=== PATIENT | female | born 1960 | race Caucasian/White ===

== ENCOUNTER 2016-04-29 16:56 | Inpatient (IN) | payer OTHER ==
[~2016-04-29] VITALS: Ht 160 cm; Wt 102.1 kg
--- NOTE | ~2016-04-29 | EKG ---
[address] [place] [address] ELECTROCARDIOGRAM REPORT Name: HARVINDERSERAFIN Room #: 454-P [facility] IN ..#: [id number] Admission: 04/29/16 Attend Phys: Vik De La Cruz MD Discharge: Date of : 56 Report #: [id number] THIS REPORT FOR: //name// [facility] ED Test Date: 2016-04-29 Test Time: 17:11:15 Pat Name: SERAFIN BLANTON Department: Room: [facility] Gender: F Hay Sorter: ULICES : 1960 Requested By: Javier Munguia Order Number: [id number] MD: Delfino Pollack Measurements Intervals [place] Rate: 96 P: 70 MA: 167 QRS: 48 QRSD: 102 T: 33 QT: 375 QTc: 474 Interpretive Statements Sinus rhythm No significant abnormality Compared to ECG 03/24/2016 08:55:02 No significant changes Electronically Signed On 04-30-2016 8:28:51 MECHANICAL SERVICE REPRESENTATIVE by Delfino Pollack [email or web address] <ELECTRONICALLY SIGNED> By: Delfino Pollack MD, [facility] 04/30/16 08 10 10 Delfino Pollack MD, [facility] /EPI
--- NOTE | ~2016-04-29 | HC ---
[facility] [address] [address] CONSULTATION Name: SERAFIN BLANTON Room #: 454-P [facility] IN M.R.#: [id number] Admission: 04/29/16 Attend Phys: Giuliano Sterling MD Discharge: Date of : 56 Report #: [id number] THIS REPORT FOR: //name// CC: [facility]mesh Mancini [facility] DATE OF SERVICE: 04/29/2016 REASON FOR CONSULTATION: Exacerbation of COPD. IMPRESSION: 1. Likely exacerbation of chronic obstructive pulmonary disease. 2. Ground glass capacity and interstitial thickening, question etiology. 3. Mediastinal hilar gastrohepatic lymphadenopathy. 4. Obstructive sleep apnea. 5. History of anticardiolipin syndrome. 6. Cirrhosis. 7. Morbid obesity. 8. Coronary artery disease with percutaneous transluminal coronary angioplasty. 9. History of cerebrovascular accident with history of patent foramen ovale closure. 10. Anticardiolipin antibody. 11. Hypertension. 12. Diabetes. 13. Psoriasis. 14. Pulmonary hypertension, PA systolic of 37. PLAN: Agree with current therapy including corticosteroids and Pulmicort. Wean corticosteroids quickly. We will do a viral panel. Anemia workup per primary as well as thrombocytopenia. Does have lactic acidosis from work of breathing likely. HISTORY OF PRESENT ILLNESS: A 55-year-old female recently discharged on 03/28/2016, was doing well. I saw her actually on 04/09/2016. She was working on loosing weight. She was using her BiPAP. We did discuss reflux precautions. She relates children have been sick at home and she has come down with similar viral illness with cough, shortness of breath and some brown sputum production. MEDICATIONS: Include , vitamin D, magnesium, levothyroxine, Tradjenta, metformin, Invokana, potassium, atenolol, Plavix, Lantus, ProAir, Daliresp, Mucinex, omeprazole, Incruse, aspirin, simvastatin, Lasix, losartan, Symbicort and albuterol. PAST SURGICAL HISTORY: Include bunion surgery, , cholecystectomy, eye surgery and tonsillectomy. We had talked about doing a lung biopsy but has not [facility] [address] [place] [address] CONSULTATION Name: SERAFIN BLANTON Room #: 454-P [facility] IN [facility]#: [id number] Admission: 04/29/16 Attend Phys: Giuliano Sterling MD Discharge: Date of : 56 Report #: [id number] been well enough to do this. FAMILY HISTORY: Positive for liver cancer and [place]. SOCIAL HISTORY: Positive tobacco, quit in 2000. Negative drugs of abuse. ALLERGIES: To SULFA, TETRACYCLINE and DEXILANT. REVIEW OF SYSTEMS: Coronary artery disease in 2008, last PA systolic was 37, history of CVA, COPD, endocarditis, sleep apnea and AHI of 34. History of ischemic cardiomyopathy. reflux. No hemoptysis. PHYSICAL EXAMINATION: VITAL SIGNS: Temperature 99.6, pulse 101, respirations 18 and BP 123/65. EYES: Negative icterus. NECK: Trachea midline. Posterior pharynx, no thrush. LUNGS: Showed mild wheeze bilaterally. HEART: Regular. ABDOMEN: Bowel sounds present. EXTREMITIES: Showed trace edema and psoriatic lesions. LABORATORY DATA: Lactate 33. BUN 13, creatinine 1.4 and glucose 269. Magnesium 1.6. White count 6.7, hemoglobin 10.4, MCV 83.6 and platelets 128 and no bands. RADIOLOGICAL DATA: CT PE protocol showed stable enlargement of pulmonary arteries; stable mediastinal, hilar and gastrohepatic lymphadenopathy with scattered ground glass opacities within the lungs and interstitial thickening and enlarged liver. EKG showed probable left atrial enlargement and no significant change. We will follow closely with you. <ELECTRONICALLY SIGNED> By: Umesh Fall MD 04/30/16 1832 2205 0850 Umesh Fall MD /nt
--- NOTE | ~2016-04-29 | D ---
[facility] [place] [address] [place] [address] DISCHARGE SUMMARY Name: SERAFIN BLANTON Room #: 454-P [facility] IN M.R.#: [id number] Admission: 04/29/16 Attend Phys: Giuliano Sterling MD Discharge: 05/07/16 Date of : 56 Report #: [id number] THIS REPORT FOR: //name// CC: Umesh Sterling DATE OF SERVICE: 05/06/2016 TYPE OF DICTATION: Discharge summary. After [id number] encounter, I did see the patient and examined her on the day of discharge, 05/06/2016. DISCHARGE DIAGNOSES: 1. Exacerbation of chronic obstructive pulmonary disease. 2. Ground-glass opacities and interstitial thickening. 3. Mediastinal hilar gastrohepatic lymphadenopathy. 4. Obstructive sleep apnea. 5. Edema. 6. History of anticardiolipin syndrome. 7. Diabetes mellitus. 8. Morbid obesity. 9. Coronary artery disease, status post angioplasty. 10. History of cerebrovascular accident with history of patent foramen ovale. 11. Hypertension. 12. Psoriasis. 13. Pulmonary hypertension with pulmonary artery systolic pressure of 37. 14. Parainfluenza, treated. 15. Colonization methicillin-resistant Staphylococcus aureus. 16. Diastolic congestive heart failure. 17. Obstructive sleep apnea. 18. Hypomagnesemia, resolved. 19. Hypothyroidism. 20. Hypokalemia, resolved. HOSPITAL COURSE: The patient was admitted to the hospital secondary to short of breath and she was found to have [id number] hypoxic respiratory failure and COPD exacerbation. The patient was admitted to the hospital and started on steroids and bronchodilators. Dr. Fall with pulmonary service was consulted and his impression is there are ground-glass opacities in the lung with question etiology. He did the viral panel and anemia workup as well as thrombocytopenia and he was following the patient during her stay in the hospital. Also, the patient was followed with infectious disease, who think she was doing well and to continue current . The patient has mediastinal lymphadenopathy which is going to be followed by pulmonary. So, on the day of discharge, Dr. Fall [facility] [address] [place] [address] DISCHARGE SUMMARY Name: HARVINDERSERAFIN Room #: 454-P [facility] IN [facility].#: [id number] Admission: 04/29/16 Attend Phys: Giuliano Sterling MD Discharge: 05/07/16 Date of : 56 Report #: [id number] stated that the patient is stable to go home. He likes her to follow up with him in 2 weeks and also to have a taper of prednisone every 2 days and then stop. The patient is stable and she is going home. MEDICATIONS: See the discharge summary for her medicines. <ELECTRONICALLY SIGNED> By: Bernard Adams MD 05/07/16 1708 0948 1024 Bernard Adams MD /calin
--- NOTE | ~2016-04-29 | HC ---
[facility] [place] [address] [place] [address] CONSULTATION Name: SERAFIN BLANTON Room #: 454-P [facility] IN .R.#: [id number] Admission: 04/29/16 Attend Phys: Giuliano Sterling MD Discharge: Date of : 56 Report #: [id number] THIS REPORT FOR: //name// CC: Umesh Sterling REASON FOR CONSULTATION: I was asked to evaluate concerning exacerbation of COPD and parainfluenza infection. HISTORY OF PRESENT ILLNESS: The patient is a 55-year-old with a history of COPD, oxygen dependent. She was admitted on 04/29/2016 with 2 weeks of progressive cough and shortness of breath. Sputum cultures revealed normal donavon. CT scan of the chest showed hilar adenopathy, which was stable and interstitial changes to the lung. Her viral respiratory panel has shown parainfluenza. She has been exposed to several other family members, who have had upper respiratory tract infection symptoms. No travel. No other exposures noted. ALLERGIES: SULFA AND TETRACYCLINE. PAST MEDICAL HISTORY: COPD, coronary artery disease, stroke, obstructive sleep apnea, diabetes, hypothyroidism, cholecystectomy, eye surgery. The patient reconstruction bunionectomy, antiphospholipid syndrome. Had a suspected endocarditis in 2004 and PFO identified. FAMILY HISTORY: Coronary artery disease, cancer. SOCIAL HISTORY: Past smoker. No significant alcohol intake. No HIV risk factors. REVIEW OF SYSTEMS: No chest pain. She has had peripheral edema. No nausea, vomiting or diarrhea, dysuria or frequency. PHYSICAL EXAMINATION: VITAL SIGNS: Afebrile, hemodynamically stable. GENERAL: She was alert, cooperative and pleasant on 4 L of oxygen per nasal cannula. She was obese with 2+ peripheral edema in the lower extremities. HEENT: Unremarkable. NECK: Supple. LUNGS: Decreased breath sounds bilaterally with no consolidation or adventitial sounds. HEART: Regular. ABDOMEN: Soft and nontender. LABORATORY STUDIES: 1. Blood cultures are negative. Viral respiratory panel positive for [facility] [address] [place] [address] CONSULTATION Name: SERAFIN BLANTON Room #: 454-P [facility] IN [facility]#: [id number] Admission: 04/29/16 Attend Phys: Giuliano Sterling MD Discharge: Date of : 56 Report #: [id number] parainfluenza. 2. ABG on 4 L showed a pO2 of 70, pCO2 of 56, pH of 7.4. 3. Hemoglobin 11; white count 14; platelet count 164,000. Creatinine 1.2. 4. Echocardiogram was unremarkable. 5. HEATHER level, negative. 6. BNP 8000. 7. Sputum normal donavon. 8. Chest x-ray yesterday showed slight right middle lobe atelectasis. IMPRESSION: A 55-year-old with exacerbation of chronic obstructive pulmonary disease due to her influenza. She has some adenopathy and interstitial changes on the CT scan, which appears stable. She has underlying pulmonary hypertension, previous patent foramen ovale and status post closure, cirrhosis. Concern is the mediastinal adenopathy that been identified since ____/2011. It does seem like this is relatively stable, but they are in large nodes. In between acute exacerbation of her chronic obstructive pulmonary disease, it seems like the patient does reasonably well for her advanced chronic obstructive pulmonary disease. RECOMMENDATION: Should be able to discontinue her antibiotics for parainfluenza likely the cause of her exacerbation of COPD. Continue with diuresis to control her lower extremity edema. Taper prednisone for I suspect this has what caused her leukocytosis. 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 No intervention regarding this. We will await ANCA and further serology testing. Does not fit well for mycobacterial or fungal infection, considering the chronicity. Histoplasma would be most likely, although fungal organisms would cause a chronic mediastinal adenopathy. We will screen for histoplasma. We will discuss further with pulmonary medicine regarding further interventions versus continued observation. <ELECTRONICALLY SIGNED> By: Rafael Malone MD 05/06/16 1027 1715 1844 Rafael Malone MD /nt
--- NOTE | ~2016-04-29 | 2DMMODE ---
[facility] [place] [address] 2 D/M-MODE ECHOCARDIOGRAM Name: SERAFIN BLANTON Room #: 454-P [facility] IN ..#: [id number] Admission: 04/29/16 Attend Phys: Jeanette Soto Discharge: Date of : 56 Date of Service: 05/04/16 1012 Report #: [id number] THIS REPORT FOR: //name// Transthoracic Echocardiography Ordering physician: Giuliano Sterling Referring physician: Addis Ndiaye MD Sharma, Manoj K. Arch Cushion Skiving Machine Operator: Bing Villegas Indications/History: Abbreviated echo for CHF, PHTN, SOB. Hx: CAD, stents, COPD, DM, obesity. Complete echo done 03/24/16. BP: 167 / HR: 90bpm Height: 63in Weight: 225.5lb 83 Study data: Limited 2D, limited spectral Doppler, and color Doppler. Location: Bedside. Routine. Image quality was adequate. 2D measurements Normal Normal LVID ED 36-57 IVS ED 6-11 LVID ES 23-40 LVPW ED 6-11 LA volume index 16-28 AoRoot diam ED 21-37 LVOT diameter 18-23 Findings: Left ventricle: The cavity size was normal. Wall thickness was normal. Systolic function was normal. The estimated ejection fraction was in the range of 50% to 55%. Right ventricle: The cavity size was normal. Systolic function was normal. Right atrium: The atrium was normal in size. Left atrium: The atrium was mildly dilated. Aortic valve: Mildly thickened, mildly calcified leaflets. Doppler: There was no stenosis. Trivial regurgitation. Peak velocity: 224cm/s (S). Peak gradient: 20.1mm Hg (S). [facility] [place] [address] 2 D/M-MODE ECHOCARDIOGRAM Name: SERAFIN BLANTON Room #: [facility] IN M.R.#: [id number] Admission: 04/29/16 Attend Phys: Jeanette Soto Discharge: Date of : 56 Date of Service: 05/04/16 1012 Report #: [id number] Mitral valve: Mildly thickened, mildly calcified leaflets . Doppler: There was no evidence for stenosis. Trivial regurgitation. Tricuspid valve: Structurally normal valve. Doppler: There was no evidence for stenosis. Trivial regurgitation. Regurgitant peak velocity: 271.9cm/s. Peak RV-RA gradient: 30mm Hg (S). Pericardium: There was no pericardial effusion. Pulmonary artery: Systolic pressure was estimated to be 40mm Hg. Systemic veins: Inferior vena cava: The vessel was dilated; the respirophasic diameter changes were in the normal range (= 50%). Conclusions 1. Left ventricle: The cavity size was normal. Wall thickness was normal. Systolic function was normal. The estimated ejection fraction was in the range of 50% to 55%. 2. Left atrium: The atrium was mildly dilated. 3. Aortic valve: Mildly thickened, mildly calcified leaflets. Trivial regurgitation. 4. Mitral valve: Mildly thickened, mildly calcified leaflets . Trivial regurgitation. 5. Tricuspid valve: Structurally normal valve. Trivial regurgitation. 6. Pulmonary arteries: Systolic pressure was estimated to be 40mm Hg. 7. Inferior vena cava: The vessel was dilated; the respirophasic diameter changes were in the normal range (= 50%). <ELECTRONICALLY SIGNED> By: Mingo Ruiz MD 05/04/16 1134 1012 1134 Mingo Ruiz MD /falguni
[~2016-04-29 16:56] MED LIST: ACETAMINOPHEN325 M1 PO; ACIDOPHILUS1 EAC2 PO; ACIDOPHILUS1 EAC3 PO; ACTOS15 MG PO; ALBUTEROL; ALBUTEROL NEB; ALBUTEROL2.5 MG/0.5 INH; ALBUTEROL2.5 MG/31 INH; AMLODIPINE BESYL5 MG PO; AMOXICILLIN 50500 M1 PO; AMOXICILLIN/POTASSIU; ANALGESIC325 MG PO; ASPIRIN325 PO; ATENOLOL 25 MG25 M1 PO; AUGMENTIN 875875 MG PO; AVELOX 400 MG400 M1; BIAXIN 500 MG500 M1 PO; BYETTA PEN 11 PENIN1 SUBQ; BYETTA PEN 11 PENINJ SUBQ; BYETTA PEN 51 PENIN1 SUBQ; CARVEDILOL6.25 MG PO; CEFDINIR300 MG PO; CEFTIN 250 MG250 MG PO; CEPACOL SORE T1 EAC7 PO; CIPROFLOXACIN500 M1 PO; CLARITIN10 MG PO; DALIRESP500 MCG PO; FLUOCINONI0.05 %/30 TOP; GABAPENTIN 100100 MG PO; GABAPENTIN100 MG PO; GLUCOPHAGE500 MG PO; GUAIFENESIN; INCRUSE ELLI62.5 MCG IH; INVOKANA300 MG PO; LANTUS100 UNIT/M SUBQ; LASIX 40 MG TAB40 M2 PO; LEVOFLOXACIN750 MG PO; LEVOTHROID125 MCG PO; LEVOTHYROXIN0.125 M1 PO; LEVOTHYROXINE 0.15MG PO; LISINOPRIL2.5 MG PO; LOSARTAN POTAS100 MG PO; MAGNESIUM250 M1 PO; MAGNESIUM400 MG PO; MUCINEX TA600 MG/TA2 PO; MUCINEX600 MG PO; NASAL SPRAY30 ML NASAL; NEURONTIN 300300 M1 PO; OMNICEF250 MG/5 M; OSELB75 PO; OXYGEN; PLAVIX 75 MG TA75 MG PO; POTASSIUM20 PO; PREDNISONE 10 M10 M1 PO; PREDNISONE 10 M10 MG; PREDNISONE 10 M10 MG PO; PRENATA CHEWAB1 EACH PO; PRENATAL TABLE1 EAC4 PO; PRILOSEC20 MG PO; PROAIR HFA8.5 GM IH; PROAIR HFA8.5 GM INH; RANITIDINE 150150 MG PO; REPLACE1 EACH PO; SIMVASTATIN10 MG PO; SIMVASTATIN40 MG PO; SPIRIVA INH; SYMBICORT160 MCG/4. INH; SYMBICORT160 MCG/41 INH; SYNTHROID150 MCG PO; TRADJENTA5 MG PO; VENTOLIN17 GM INH; VISINE ALLERGY30 ML OPHTHALMIC; VITAMIN D 5050000 I1 PO; VITAMIN D250000 UNIT PO; ZANTAC 150MG T150 M1 PO; ZANTAC 150MG T150 MG PO; ZOCOR 10 MG TAB10 MG PO
[2016-04-29 17:03] VITALS: BP 135/59
[2016-04-29] MEDS ORDERED: PRILOSEC 20 MG20 MG PO (17:28)
[2016-04-29] MEDS ORDERED: INVOKANA300 MG PO (17:31)
[2016-04-29 17:43] LABS: ABSOLUTE NEUTROPHILS 4.4 thou/uL (1.4-8.2); BASOPHILS 0.4 % (0.0-2.0); EOSINOPHILS 0.7 % (0.0-3.0); HEMATOCRIT 31.3 % (37.0-47.0); HEMOGLOBIN 10.4 gm/dL (12.0-15.0); LYMPHOCYTES 26.4 % (24.0-44.0); MANUAL DIFF NO; MCH 27.7 pg (26.0-34.0); MCHC 33.2 % (28.0-37.0); MCV 83.6 fL (80.0-100.0); MONOCYTES 7.3 % (1.0-8.0); PLATELET COUNT 128 thou/uL (150-400); POLYS 65.2 % (36.0-66.0); RBC 3.74 mil/uL (4.20-5.00); RDW 19.7 % (10.5-14.5); WBC 6.7 thou/uL (4.0-11.0)
[2016-04-29 17:51] LABS: ANION GAP 8 mmol/L (7-16); BUN 13 mg/dL (7-18); CALCIUM 8.4 mg/dL (8.5-10.1); CHLORIDE 99 mmol/L (98-107); CO2 34 mmol/L (21-32); CREATININE 1.4 mg/dL (0.6-1.3); GLUCOSE 269 mg/dL (70-99); POTASSIUM 3.7 mmol/L (3.5-5.1); SODIUM 141 mmol/L (136-145)
[2016-04-29 18:00] LABS: ALBUMIN 3.3 g/dL (3.4-5.0); ALKALINE PHOSPHATASE 51 U/L (46-116); MAGNESIUM 1.6 mg/dL (1.8-2.4); SGOT 13 U/L (15-37); SGPT 17 U/L (30-65); TOTAL BILIRUBIN 0.2 mg/dL (<0.1-1.0); TOTAL PROTEIN 7.7 g/dL (6.4-8.2); TROPONIN-I < 0.04 ng/mL (<0.04-0.07)
[2016-04-29 20:25] VITALS: BP 133/69
[2016-04-29 23:55] VITALS: BP 133/65
[2016-04-30 04:35] VITALS: BP 140/64
[2016-04-30 08:00] VITALS: BP 121/64
[2016-04-30 10:06] LABS: CREATININE 1.3 mg/dL (0.6-1.3); MAGNESIUM 1.8 mg/dL (1.8-2.4)
[2016-04-30 10:09] LABS: POTASSIUM 4.9 mmol/L (3.5-5.1)
[2016-04-30 11:23] VITALS: BP 130/68
[2016-04-30 12:12] LABS: IgA < 50 mg/dL (87-352); IgG 1373 mg/dL (700-1600); IgM 169 mg/dL (26-217)
[2016-04-30 15:07] VITALS: BP 138/86
[2016-04-30 20:13] VITALS: BP 146/75
[2016-05-01 05:17] VITALS: BP 140/69
[2016-05-01 06:41] LABS: CALCIUM 8.9 mg/dL (8.5-10.1); CREATININE 1.3 mg/dL (0.6-1.3); POTASSIUM 4.7 mmol/L (3.5-5.1)
[2016-05-01 07:59] VITALS: BP 156/80
[2016-05-01 13:14] LABS: ANTI-DNA SCREEN 2 IU/mL (0-9); ANTI-RNP 0.3 AI (0.0-0.9)
[2016-05-01 16:33] VITALS: BP 144/78
[2016-05-01 20:22] VITALS: BP 146/72
[2016-05-02 03:25] VITALS: BP 149/82
[2016-05-02 04:36] LABS: HEMATOCRIT 28.9 % (37.0-47.0); HEMOGLOBIN 9.6 gm/dL (12.0-15.0); MCH 27.9 pg (26.0-34.0); MCHC 33.1 % (28.0-37.0); MCV 84.4 fL (80.0-100.0); RBC 3.42 mil/uL (4.20-5.00); RDW 19.7 % (10.5-14.5)
[2016-05-02 04:41] LABS: CALCIUM 8.9 mg/dL (8.5-10.1); CREATININE 1.2 mg/dL (0.6-1.3); POTASSIUM 4.4 mmol/L (3.5-5.1)
[2016-05-02 08:10] VITALS: BP 155/90
[2016-05-02 12:29] VITALS: BP 157/83
[2016-05-02 15:14] VITALS: BP 155/93
[2016-05-02 16:08] LABS: ANGIOTENSIN CONVERTNG ENZ 25 U/L (14-82)
[2016-05-02 19:32] VITALS: BP 155/83
[2016-05-03 03:39] VITALS: BP 153/93
[2016-05-03 09:00] VITALS: BP 135/82
[2016-05-03 13:00] VITALS: BP 132/78
[2016-05-03 16:00] VITALS: BP 136/68
[2016-05-03 20:00] VITALS: BP 129/66
[2016-05-04 04:00] VITALS: BP 175/76
[2016-05-04 05:50] LABS: HEMATOCRIT 30.3 % (37.0-47.0); HEMOGLOBIN 9.9 gm/dL (12.0-15.0); MCHC 32.7 % (28.0-37.0); MCV 85.4 fL (80.0-100.0); RBC 3.55 mil/uL (4.20-5.00); RDW 19.6 % (10.5-14.5); WBC 10.7 thou/uL (4.0-11.0)
[2016-05-04 07:23] LABS: CALCIUM 9.1 mg/dL (8.5-10.1); CREATININE 1.3 mg/dL (0.6-1.3); POTASSIUM 4.1 mmol/L (3.5-5.1)
[2016-05-04 10:11] LABS: GLOMERULR BASEM MEMBRN AB 12 units (0-20)
[2016-05-04 12:45] VITALS: BP 166/76
[2016-05-04 14:13] LABS: PROTEASE 3 ANTIBODY < 3.5 U/mL (0.0-3.5)
[2016-05-04 15:18] VITALS: BP 166/76
[2016-05-04 17:09] LABS: INFLUENZA B Negative (Negative); METAPNEUMOVIRUS Negative (Negative)
[2016-05-04 19:37] VITALS: BP 155/74
[2016-05-05 06:17] LABS: HEMATOCRIT 34.5 % (37.0-47.0); HEMOGLOBIN 11.1 gm/dL (12.0-15.0); MCH 27.5 pg (26.0-34.0); MCHC 32.2 % (28.0-37.0); MCV 85.5 fL (80.0-100.0); PLATELET COUNT 164 thou/uL (150-400); RBC 4.04 mil/uL (4.20-5.00); RDW 19.9 % (10.5-14.5); WBC 14.3 thou/uL (4.0-11.0)
[2016-05-05 06:21] LABS: MANUAL DIFF YES
[2016-05-05 06:34] LABS: CALCIUM 9.3 mg/dL (8.5-10.1); CREATININE 1.2 mg/dL (0.6-1.3); POTASSIUM 4.1 mmol/L (3.5-5.1)
[2016-05-05 07:30] VITALS: BP 166/74
[2016-05-05 08:43] LABS: METAMYELOCYTES 2 %; TOTAL CELL COUNT 100
[2016-05-05 08:44] LABS: ABSOLUTE NEUTROPHILS 11.4 thou/uL (1.4-8.2); ANISOCYTOSIS 1+; MYELOCYTES 1 %
[2016-05-05 10:33] LABS: ABG SAMPLE TYPE ARTERIAL; BE(vivo) 10.5 mmol/L (-2 to +3); HCO3 36.6 mmol/L (22.0-26.0); LACTATE 1.98 mmol/L (0.5-2.0); O2(CT) 15.6 mL/dL (15.0-23.0); PCO2 56.2 mmHg (35.0-45.0); PO2 70.7 mmHg (80.0-100.0); pH 7.432 (7.360-7.450); sO2 94.3 % (92.0-98.0); tCO2 38.4 mmol/L (24.0-30.0)
[2016-05-05 10:35] LABS: STICK SITE L.RADIAL
[2016-05-05 10:36] LABS: ABG COMMENT NO PROBLEMS
[2016-05-05 12:00] VITALS: BP 150/70
[2016-05-05 16:00] VITALS: BP 153/69
[2016-05-05 19:40] VITALS: BP 146/78
[2016-05-06 04:52] VITALS: BP 147/63
[2016-05-06 06:16] LABS: HEMATOCRIT 33.1 % (37.0-47.0); HEMOGLOBIN 10.9 gm/dL (12.0-15.0); MCH 27.8 pg (26.0-34.0); MCV 84.2 fL (80.0-100.0); PLATELET COUNT 180 thou/uL (150-400); RBC 3.93 mil/uL (4.20-5.00); RDW 19.6 % (10.5-14.5); WBC 17.4 thou/uL (4.0-11.0)
[2016-05-06 06:23] LABS: MANUAL DIFF YES
[2016-05-06 06:26] LABS: CALCIUM 8.9 mg/dL (8.5-10.1); CREATININE 1.3 mg/dL (0.6-1.3); POTASSIUM 3.4 mmol/L (3.5-5.1)
[2016-05-06 07:40] VITALS: BP 148/66
[2016-05-06 08:36] LABS: ABSOLUTE NEUTROPHILS 11.3 thou/uL (1.4-8.2); METAMYELOCYTES 1 %; TOTAL CELL COUNT 100
[2016-05-06 08:37] LABS: ANISOCYTOSIS 1+; PLATELET ESTIMATE NORMAL
[2016-05-06 11:35] VITALS: BP 128/67
[2016-05-06 16:09] LABS: c-ANCA <1:20 titer (Neg:<1:20); p-ANCA <1:20 titer (Neg:<1:20)
[2016-05-06 16:17] VITALS: BP 134/70
[2016-05-06 19:45] VITALS: BP 132/73
[2016-05-07 03:47] VITALS: BP 111/54
[2016-05-07 08:14] LABS: HEMATOCRIT 30.9 % (37.0-47.0); HEMOGLOBIN 10.2 gm/dL (12.0-15.0); MCH 28.2 pg (26.0-34.0); MCHC 33.2 % (28.0-37.0); MCV 85.2 fL (80.0-100.0); PLATELET COUNT 140 thou/uL (150-400); RBC 3.63 mil/uL (4.20-5.00); RDW 19.6 % (10.5-14.5); WBC 12.2 thou/uL (4.0-11.0)
[2016-05-07 08:16] LABS: MANUAL DIFF YES
[2016-05-07 08:20] VITALS: BP 134/61
[2016-05-07 08:20] LABS: CREATININE 1.3 mg/dL (0.6-1.3); MAGNESIUM 2.1 mg/dL (1.8-2.4); POTASSIUM 3.8 mmol/L (3.5-5.1)
[2016-05-07 08:51] LABS: ABSOLUTE NEUTROPHILS 8.2 thou/uL (1.4-8.2); METAMYELOCYTES 3 %; MYELOCYTES 3 %; TOTAL CELL COUNT 100
[2016-05-07 08:52] LABS: ANISOCYTOSIS SLIGHT; MACROCYTES SLIGHT; POLYCHROMASIA SLIGHT
[2016-05-07] MEDS ORDERED: PREDNISONE 5 MG5 M1 PO (09:54)
[2016-05-07] MEDS ORDERED: CEFUROXIME250 MG PO (09:54)
[2016-05-07 11:54] VITALS: BP 166/76
[2016-05-07 12:09] LABS: ASPERGILLUS FLAVUS Negative (Negative); ASPERGILLUS FUMIGATIS #1 Negative (Negative); ASPERGILLUS FUMIGATIS #2 Negative (NEGATIVE); ASPERGILLUS FUMIGATIS #3 Negative (NEGATIVE); ASPERGILLUS FUMIGATIS #6 Negative (NEGATIVE); AUREO PULLULANS Negative (Negative); MICROPOLYSPOR FAENI Negative (Negative); PIGEON SERUM Negative (Negative); SACCHAR. VIRIDIS Negative (Negative); THERM.CANDIDUS Negative (Negative); THERM.SACCHARI Negative (Negative); THERMOACTINOMYCE VULGARIS Negative (Negative)
[2016-05-08 17:11] LABS: HISTOPLASMA MYCELIAL-ID Negative (Negative)
[2016-05-12 08:34] LABS: NIL (NEGATIVE) CONTROL SPOT CT 0; PANEL A SPOT CT 0; PANEL B SPOT CT 0; POSITIVE CONTROL SPOT COUNT > 20; T-SPOT.TB Negative
[2016-06-10] MEDS ORDERED: AUGMENTIN 500-1 EACH PO (10:23)
[2016-06-10] MEDS ORDERED: PREDNISONE 10 M10 M1 PO (10:27)
== END 2016-05-07 14:40 | disposition home health service (06) | DRG 291 ==
LOC: ER 16:56 → 4W 20:07 → EROBS 20:07 → 4W 20:39
PROVIDERS: Emergency Medicine; Family Medicine; Hospitalist; Internal Medicine Pulmonary Disease; Nurse Practitioner Acute Care; Specialist
PROC: 5A09457 Assistance with Respiratory Ventilation, 24-96 Consecutive Hours, Continuous Positive Airway Pressure (ICD-10-PCS; principal; 2016-05-04)
DX: I50.33 Acute on chronic diastolic (congestive) heart failure (principal); J96.21 Acute and chronic respiratory failure with hypoxia; J44.0 Chronic obstructive pulmonary disease with (acute) lower respiratory infection; J44.1 Chronic obstructive pulmonary disease with (acute) exacerbation; D68.61 Antiphospholipid syndrome; I50.30 Unspecified diastolic (congestive) heart failure; J20.9 Acute bronchitis, unspecified; D72.829 Elevated white blood cell count, unspecified; I25.10 Atherosclerotic heart disease of native coronary artery without angina pectoris; I11.0 Hypertensive heart disease with heart failure; R59.1 Generalized enlarged lymph nodes; G47.33 Obstructive sleep apnea (adult) (pediatric); L40.9 Psoriasis, unspecified; E03.9 Hypothyroidism, unspecified; E11.65 Type 2 diabetes mellitus with hyperglycemia; E83.42 Hypomagnesemia; E87.6 Hypokalemia; I27.2 Other secondary pulmonary hypertension; T38.0X5A Adverse effect of glucocorticoids and synthetic analogues, initial encounter; K74.60 Unspecified cirrhosis of liver; E66.01 Morbid (severe) obesity due to excess calories; Z68.39 Body mass index [BMI] 39.0-39.9, adult; Z87.891 Personal history of nicotine dependence; Z86.73 Personal history of transient ischemic attack (TIA), and cerebral infarction without residual deficits; Z90.49 Acquired absence of other specified parts of digestive tract; Z98.890 Other specified postprocedural states; Z95.5 Presence of coronary angioplasty implant and graft; Z79.899 Other long term (current) drug therapy; Z79.4 Long term (current) use of insulin; Z88.1 Allergy status to other antibiotic agents; Z88.2 Allergy status to sulfonamides; Z80.8 Family history of malignant neoplasm of other organs or systems; Z82.49 Family history of ischemic heart disease and other diseases of the circulatory system
CPT/HCPCS: 10045

== ENCOUNTER 2016-09-06 15:00 | Inpatient (IN) | payer OTHER ==
[~2016-09-06] VITALS: Ht 160 cm; Wt 99.8 kg
--- NOTE | ~2016-09-06 | HC ---
[facility] [address] [place] [address] CONSULTATION Name: SERAFIN BLANTON Room #: 434-P ADM IN M.R.#: [id number] Admission: 09/06/16 Attend Phys: Giuliano Sterling MD Discharge: Date of : 56 Report #: [id number] THIS REPORT FOR: //name// CC: Addis Sterling DATE OF SERVICE: 09/07/2016 REASON FOR CONSULTATION: Pneumonia and exacerbation of COPD. IMPRESSION: 1. Healthcare-associated pneumonia. 2. Exacerbation of chronic obstructive pulmonary disease. 3. Obstructive sleep apnea. 4. History of anticardiolipin syndrome. 5. Obesity. 6. Cirrhosis. 7. Coronary artery disease with history of percutaneous transluminal coronary angioplasty. 8. History of cerebrovascular accident with patent foramen ovale. 9. Anticardiolipin antibody. 10. Hypertension. 11. Diabetes. 12. Psoriasis. 13. History of pulmonary hypertension. 14. Acute kidney injury. PLAN: 1. Agree with current antibiotics. Continue corticosteroids. We will decrease IV fluids 2. PT, OT to see. We will do a sputum and urine to check for etiology. HISTORY OF PRESENT ILLNESS: A 55-year-old relate she has been doing okay, however, feels she never got better even though she did take a trip to [place]. She has been having some loose stools also. She denies nausea or vomiting. No sputum production. HOME MEDICATIONS: Include albuterol, Symbicort, magnesium, aspirin, Plavix, loratadine, atenolol, Daliresp, guaifenesin, losartan, levothyroxine, insulin, omeprazole. PAST SURGICAL HISTORY: Include: 1. Bunion surgery. 2. . 3. Cholecystectomy. 4. Eye surgery. [facility] [address] [place] [address] CONSULTATION Name: SERAFIN BLANTON Room #: 434-P [facility] IN ..#: [id number] Admission: 09/06/16 Attend Phys: Giuliano Sterling MD Discharge: Date of : 56 Report #: [id number] 5. Tonsillectomy. FAMILY HISTORY: Positive for liver [place] and [place]. SOCIAL HISTORY: Quit smoking in 2000. Negative drugs of abuse or significant alcohol. ALLERGIES: To SULFA, TETRACYCLINE, DEXILANT. REVIEW OF SYSTEMS: Cough, dyspnea, loose stools. No hemoptysis, hematemesis or hematuria. Positive history of pulmonary hypertension with dyspnea on exertion, history of CVA, COPD, endocarditis, obstructive sleep apnea on CPAP, GERD . No dysuria. Psoriasis, nasal congestion. PHYSICAL EXAMINATION: VITAL SIGNS: T-max 99.1, pulse 72, respirations 20, BP 154/61. EYES: Negative icterus. NECK: Negative JVD. LUNGS: Coarse breath sounds, right greater than left. HEART: Regular. ABDOMEN: Bowel sounds present. EXTREMITIES: Showed no edema, psoriatic lesion noted. NEUROLOGIC: Alert, oriented. LABORATORY DATA: Urine, legionella and strep negative. Glucose 306 and creatinine 1.4. Sputum so far negative. White count , hemoglobin 10.6, platelets 151, MCV was 81. Chest x-ray showed patchy right infiltrate. Initial ABG 7.313, pCO2 67, pO2 68 on 4 liters. We will follow closely with you. <ELECTRONICALLY SIGNED> By: Umesh Fall MD 09/07/16 1950 1030 1219 Umesh Fall MD /nt
--- NOTE | ~2016-09-06 | EKG ---
[address] [place] [address] ELECTROCARDIOGRAM REPORT Name: ANKIT BLANTONTY Trever Room #: 434-P ADM IN .R.#: [id number] Admission: 09/06/16 Attend Phys: Giuliano Sterling MD Discharge: Date of : 56 Report #: [id number] THIS REPORT FOR: //name// [facility] ED Test Date: 2016-09-06 Test Time: 15:41:31 Pat Name: SERAFIN BLANTON Department: Room: 434 Gender: F Family Services Assistant: Fidelia : 1960 Requested By: Deidra Westbrook Order Number: [id number] MD: Delfino Pollack Measurements Intervals [place] Rate: 88 P: 48 TN: 161 QRS: 51 QRSD: 92 T: 30 QT: 407 QTc: 493 Interpretive Statements Sinus rhythm Borderline prolonged QT interval Compared to ECG 06/02/2016 10:22:09 Sinus tachycardia no longer present Electronically Signed On 09-07-2016 8:52:49 CDT by Delfino Pollack [email or web address] <ELECTRONICALLY SIGNED> By: Delfino Pollack MD, [facility] 09/07/16 0852 1541 1541 Delfino Pollack MD, [facility] /EPI
--- NOTE | ~2016-09-06 | CNG ---
[facility] [place] [address] CYTO-NONGYN REPORT PROCEDURE Name: CHRISSY BLANTON Room #: 434-P ADM IN M.R.#: [id number] Admission: 09/06/16 Date of : 56 Discharge: Report #: [id number] Path Case #: [id number] CYTOPATHOLOGY REPORT COLLECTION DATE: 09/07/2016 RECEIVED DATE: 09/07/2016 SUBMITTING PHYS: Dr. Umesh Fall OTHER PHYS: Dr. Addis Nobles CLINICAL HISTORY: HCAP,COPD, Hypercapnia SPECIMEN(S) RECEIVED: A.Sputum * * * * * * * * * * * * FINAL DIAGNOSIS: A. Sputum: - No malignant cells identified. Squamous epithelial cells and macrophages identified in a mucoid background. PATHOLOGIST: Abigail Ho M.D. REPORT ELECTRONICALLY SIGNED BY: Abigail Ho M.D. DATE/TIME: 09/08/2016 16:04 * * * * * * * * * * * * GROSS PATHOLOGY: A. Sputum: The specimen is submitted unfixed, labeled "Chrissy Blanton". Received by the Cytology Department is less than one mL of thick cloudy white fluid. One ThinPrep slide was prepared. (mm 09.07.2016) INTEGRATED CAMPAIGN MANAGER(S): Cheryl Rose, LUÍS(ASCP), IAC INITIAL CPT CODE(S): A; 73771 Professional services performed by [facility] at [facility] [address], [place] [address] Technical services performed by [facility] at [address] [place] [address]., [address], [place] [address]. [facility] [address] [place] [address], [facility] [address] [place] [address] PHONE: [phone] [facility] [address] [place] [address] CYTO-NONGYN REPORT PROCEDURE Name: HARVINDERCHRISSY Room #: 434-P ADM IN M.R.#: [id number] Admission: 09/06/16 Date of : 56 Discharge: Report #: [id number] Path Case #: [id number] DIRECTOR: Leo Farah M.D. * * * END OF REPORT * * *
--- NOTE | ~2016-09-06 | D ---
[facility] [address] [address] DISCHARGE SUMMARY Name: SERAFIN BLANTON Room #: 434-P ADM IN .R.#: [id number] Admission: 09/06/16 Attend Phys: Giuliano Sterling MD Discharge: Date of : 56 Report #: [id number] THIS REPORT FOR: //name// CC: Addis Sterling DATE OF SERVICE: 09/11/2016 DATE OF DISCHARGE: 09/11/2016. HISTORY OF PRESENT ILLNESS: The patient is a 55-year-old female with severe COPD and chronic respiratory failure, who was admitted to the hospital for COPD exacerbation and right upper lobe pneumonia. Please refer to the admission H and P for details. HOSPITALIZATION COURSE: The patient was hospitalized at [facility] for acute on chronic respiratory failure due to right lower lobe pneumonia and COPD exacerbation. The patient was started on appropriate treatment. Liquid Loader was consulted. Initially, the patient was treated with broad spectrum antibiotics with Zosyn and vancomycin. After condition improved, the patient was switched to the Augmentin. She did well, and her condition improved. The patient was also treated with IV steroids and bronchodilators for COPD exacerbation. Her condition slowly improved, and returned to the baseline. Currently, the patient's condition is acceptable, as documented in the patient's chart. DISCHARGE DIAGNOSES: 1. Healthcare-associated pneumonia, right lower lobe. Clinically much better. 2. Chronic obstructive pulmonary disease exacerbation, resolved. The patient is currently at baseline. 3. Acute on chronic respiratory failure, resolved. At baseline. 4. Diabetes mellitus type 2. 5. History of coronary artery disease, stable during the hospitalization. 6. Psoriasis. 7. Obstructive sleep apnea. 8. History of anticardiolipin syndrome, details not specified. 9. Obesity. 10. History of cerebrovascular accident. 11. History of patent foramen ovale. 12. Pulmonary hypertension. Pulmonary artery pressure 40, based on cardiac echo in April of 2016. Normal left ventricular ejection fraction. DISCHARGE MEDICATIONS: Please refer to the medication reconciliation list. [facility] [address] [place] [address] DISCHARGE SUMMARY Name: SERAFIN BLANTON Room #: 434-[facility] IN ..#: [id number] Admission: 09/06/16 Attend Phys: Giuliano Sterling MD Discharge: Date of : 56 Report #: [id number] FOLLOWUP PLAN: 1. Follow up with primary care physician in 1-2 weeks. 2. Follow up in Pulmonology Clinic in 1-2 weeks. DISPOSITION: The patient is discharged home. I spent greater than 30 minutes to coordinate the patient's discharge from the hospital. By: 1037 1113 Dheeraj Winter MD /nt
[~2016-09-06 15:00] MED LIST changes: +AUGMENTIN 500-1 EACH PO; +CEFUROXIME250 MG PO; +PREDNISONE 5 MG5 M1 PO; +PRILOSEC 20 MG20 MG PO
[2016-09-06 15:01] VITALS: BP 129/77
[2016-09-06 15:40] LABS: ABSOLUTE NEUTROPHILS 7.3 thou/uL (1.4-8.2); BASOPHILS 1.5 % (0.0-2.0); EOSINOPHILS 1.5 % (0.0-3.0); HEMATOCRIT 32.4 % (37.0-47.0); HEMOGLOBIN 10.6 gm/dL (12.0-15.0); LYMPHOCYTES 11.6 % (24.0-44.0); MCH 26.5 pg (26.0-34.0); MCHC 32.7 g/dL (28.0-37.0); MONOCYTES 6.5 % (1.0-8.0); PLATELET COUNT 151 thou/uL (150-400); POLYS 78.9 % (36.0-66.0); RDW 19.5 % (10.5-14.5); WBC 9.3 thou/uL (4.0-11.0)
[2016-09-06 15:44] LABS: MANUAL DIFF NO
[2016-09-06 15:49] LABS: ANION GAP 5 mmol/L (7-16); BUN 16 mg/dL (7-18); CALCIUM 8.9 mg/dL (8.5-10.1); CHLORIDE 97 mmol/L (98-107); CO2 35 mmol/L (21-32); CREATININE 1.2 mg/dL (0.6-1.0); GLUCOSE 143 mg/dL (74-106); POTASSIUM 4.2 mmol/L (3.5-5.1); SODIUM 137 mmol/L (136-145)
[2016-09-06 15:56] LABS: ALBUMIN 3.5 g/dL (3.4-5.0); ALKALINE PHOSPHATASE 59 U/L (46-116); SGOT 15 U/L (15-37); SGPT 22 U/L (30-65); TOTAL BILIRUBIN 0.2 mg/dL (<0.1-1.0); TOTAL PROTEIN 8.4 g/dL (6.4-8.2); TROPONIN-I < 0.04 ng/mL (<0.04-0.07)
[2016-09-06 16:19] LABS: ABG SAMPLE TYPE ARTERIAL; BE(vivo) 5.3 mmol/L (-2 to +3); HCO3 33.2 mmol/L (22.0-26.0); LACTATE 2.26 mmol/L (0.5-2.0); O2(CT) 14.3 mL/dL (15.0-23.0); O2Hb 90.4 % (92.0-98.0); sO2 91.4 % (92.0-98.0); tCO2 35.3 mmol/L (24.0-30.0)
[2016-09-06 16:20] LABS: STICK SITE L.RADIAL; pH 7.313 (7.360-7.450)
[2016-09-06 17:30] VITALS: BP 133/62
[2016-09-06 21:00] VITALS: BP 114/53
[2016-09-06 23:50] VITALS: BP 116/57
[2016-09-07 01:06] LABS: HEMATOCRIT 31.3 % (37.0-47.0); HEMOGLOBIN 10.1 gm/dL (12.0-15.0); MCH 26.8 pg (26.0-34.0); MCHC 32.4 g/dL (28.0-37.0); MCV 82.6 fL (80.0-100.0); RBC 3.79 mil/uL (4.20-5.00); RDW 19.6 % (10.5-14.5); WBC 7.5 thou/uL (4.0-11.0)
[2016-09-07 01:12] LABS: CREATININE 1.7 mg/dL (0.6-1.0); POTASSIUM 4.2 mmol/L (3.5-5.1)
[2016-09-07 03:15] VITALS: BP 131/64
[2016-09-07 08:00] VITALS: BP 151/60; BP 154/61
[2016-09-07 08:30] VITALS: BP 151/60
[2016-09-07 08:55] LABS: CALCIUM 8.3 mg/dL (8.5-10.1); CREATININE 1.4 mg/dL (0.6-1.0); POTASSIUM 4.4 mmol/L (3.5-5.1)
[2016-09-07 16:55] VITALS: BP 138/72
[2016-09-07 19:40] VITALS: BP 140/72
[2016-09-08 03:55] VITALS: BP 157/84
[2016-09-08 08:00] VITALS: BP 144/75
[2016-09-08 15:59] VITALS: BP 145/76
[2016-09-08 19:34] VITALS: BP 147/70
[2016-09-09 04:53] VITALS: BP 118/59
[2016-09-09 06:06] LABS: HEMATOCRIT 28.9 % (37.0-47.0); HEMOGLOBIN 9.5 gm/dL (12.0-15.0); MCH 26.8 pg (26.0-34.0); MCHC 32.8 g/dL (28.0-37.0); MCV 81.8 fL (80.0-100.0); RBC 3.54 mil/uL (4.20-5.00); RDW 19.5 % (10.5-14.5); WBC 8.6 thou/uL (4.0-11.0)
[2016-09-09 06:17] LABS: CREATININE 1.4 mg/dL (0.6-1.0); POTASSIUM 4.3 mmol/L (3.5-5.1)
[2016-09-09 08:00] VITALS: BP 151/72
[2016-09-09 15:59] VITALS: BP 152/70
[2016-09-09 19:34] VITALS: BP 145/60
[2016-09-09 23:08] LABS: INFLUENZA B Negative (Negative); METAPNEUMOVIRUS Negative (Negative)
[2016-09-10 05:17] VITALS: BP 154/64
[2016-09-10 07:50] VITALS: BP 168/72
[2016-09-10 15:37] VITALS: BP 159/75
[2016-09-10 19:21] VITALS: BP 143/88
[2016-09-11 05:55] VITALS: BP 147/73
[2016-09-11 07:21] VITALS: BP 154/79
[2016-09-11] MEDS ORDERED: PREDNISONE 20 M20 MG PO (08:17)
[2016-09-11] MEDS ORDERED: FLONASE 0.05%50 MCG NASAL (08:17)
[2016-09-11 14:55] VITALS: BP 154/79
== END 2016-09-11 19:58 | disposition home or self-care (01) | DRG 871 ==
LOC: ER 15:00 → EROBS 16:36 → 4S 16:36
PROVIDERS: Family Medicine; Internal Medicine Pulmonary Disease; Physician Assistant
PROC: 5A09357 Assistance with Respiratory Ventilation, Less than 24 Consecutive Hours, Continuous Positive Airway Pressure (ICD-10-PCS; principal; 2016-09-09)
DX: A41.9 Sepsis, unspecified organism (principal); J18.9 Pneumonia, unspecified organism; J96.22 Acute and chronic respiratory failure with hypercapnia; J44.1 Chronic obstructive pulmonary disease with (acute) exacerbation; J44.0 Chronic obstructive pulmonary disease with (acute) lower respiratory infection; N17.9 Acute kidney failure, unspecified; D68.61 Antiphospholipid syndrome; I10 Essential (primary) hypertension; E11.9 Type 2 diabetes mellitus without complications; G47.33 Obstructive sleep apnea (adult) (pediatric); E66.9 Obesity, unspecified; Z68.39 Body mass index [BMI] 39.0-39.9, adult; K74.60 Unspecified cirrhosis of liver; I25.10 Atherosclerotic heart disease of native coronary artery without angina pectoris; I27.2 Other secondary pulmonary hypertension; L40.9 Psoriasis, unspecified; Z79.4 Long term (current) use of insulin; Z79.899 Other long term (current) drug therapy; Z79.82 Long term (current) use of aspirin; Z95.5 Presence of coronary angioplasty implant and graft; Z86.73 Personal history of transient ischemic attack (TIA), and cerebral infarction without residual deficits; Z88.2 Allergy status to sulfonamides; Z88.1 Allergy status to other antibiotic agents; Z87.891 Personal history of nicotine dependence; Z90.49 Acquired absence of other specified parts of digestive tract; Z82.49 Family history of ischemic heart disease and other diseases of the circulatory system; Z80.8 Family history of malignant neoplasm of other organs or systems; Z88.8 Allergy status to other drugs, medicaments and biological substances
CPT/HCPCS: 10100

== ENCOUNTER 2016-10-20 16:42 | Inpatient (IN) | payer OTHER ==
[~2016-10-20] VITALS: Ht 160 cm; Wt 102.4 kg
--- NOTE | ~2016-10-20 | EKG ---
[address] [address] ELECTROCARDIOGRAM REPORT Name: HARVINDERSERAFIN Trever Room #: [facility]#: [id number] Admission: Attend Phys: Discharge: Date of : 56 Report #: [id number] THIS REPORT FOR: //name// [facility] ED Test Date: 2016-10-20 Test Time: 17:02:15 Pat Name: SERAFIN BLANTON Department: Room: Gender: F Residential Installer: [id number] : 1960 Requested By: Javier Munguia Order Number: [id number] MD: Otis Hernandez Measurements Intervals [place] Rate: 101 P: 65 [place]: 171 QRS: 41 QRSD: 94 T: 39 QT: 363 QTc: 471 Interpretive Statements Sinus tachycardia Probable left atrial enlargement Compared to ECG 09/06/2016 15:41:31 Sinus rhythm no longer present Electronically Signed On 10-20-2016 17:11:25 CDT by Otis Hernandez [email or web address] <ELECTRONICALLY SIGNED> By: Otis Hernandez MD 10/20/161710 01 170 Otis Hernandez MD /PAYAM
[2016-10-20 16:42] VITALS: BP 155/76
[~2016-10-20 16:42] MED LIST changes: +FLONASE 0.05%50 MCG NASAL; +PREDNISONE 20 M20 MG PO
[2016-10-20 17:11] LABS: ABSOLUTE NEUTROPHILS 7.1 thou/uL (1.4-8.2); BASOPHILS 0.6 % (0.0-2.0); EOSINOPHILS 1.1 % (0.0-3.0); HEMATOCRIT 33.3 % (37.0-47.0); HEMOGLOBIN 10.8 gm/dL (12.0-15.0); LYMPHOCYTES 16.1 % (24.0-44.0); MCH 26.3 pg (26.0-34.0); MCHC 32.5 g/dL (28.0-37.0); MCV 81.1 fL (80.0-100.0); MONOCYTES 4.6 % (1.0-8.0); PLATELET COUNT 143 thou/uL (150-400); POLYS 77.6 % (36.0-66.0); WBC 9.2 thou/uL (4.0-11.0)
[2016-10-20 17:24] LABS: MANUAL DIFF NO
[2016-10-20 17:26] LABS: ANION GAP 3 mmol/L (7-16); BUN 13 mg/dL (7-18); CALCIUM 9.2 mg/dL (8.5-10.1); CHLORIDE 99 mmol/L (98-107); CO2 35 mmol/L (21-32); CREATININE 1.3 mg/dL (0.6-1.0); GLUCOSE 217 mg/dL (74-106); POTASSIUM 3.7 mmol/L (3.5-5.1); SODIUM 137 mmol/L (136-145)
[2016-10-20 17:36] LABS: MAGNESIUM 1.5 mg/dL (1.8-2.4); TROPONIN-I < 0.04 ng/mL (<0.04-0.07)
[2016-10-20 19:13] VITALS: BP 154/68
[2016-10-20 19:35] VITALS: BP 139/66
[2016-10-20 23:45] VITALS: BP 153/75
[2016-10-21 02:30] VITALS: BP 153/75
[2016-10-21 04:25] VITALS: BP 140/82
[2016-10-21 05:44] LABS: HEMATOCRIT 30.5 % (37.0-47.0); HEMOGLOBIN 10.1 gm/dL (12.0-15.0); MCH 26.8 pg (26.0-34.0); MCHC 33.1 g/dL (28.0-37.0); MCV 80.8 fL (80.0-100.0); RBC 3.77 mil/uL (4.20-5.00); RDW 20.5 % (10.5-14.5); WBC 6.8 thou/uL (4.0-11.0)
[2016-10-21 06:00] LABS: ALBUMIN 3.2 g/dL (3.4-5.0); CALCIUM 9.2 mg/dL (8.5-10.1); CREATININE 1.4 mg/dL (0.6-1.0); POTASSIUM 4.4 mmol/L (3.5-5.1); TOTAL BILIRUBIN 0.3 mg/dL (<0.1-1.0); TOTAL PROTEIN 7.7 g/dL (6.4-8.2)
[2016-10-21 08:55] VITALS: BP 155/76
[2016-10-21 11:31] LABS: ABG SAMPLE TYPE ARTERIAL; BE(vivo) 6.6 mmol/L (-2 to +3); LACTATE 3.06 mmol/L (0.5-2.0); O2(CT) 14.3 mL/dL (15.0-23.0); O2Hb 90.5 % (92.0-98.0); PCO2 56.2 mmHg (35.0-45.0); PO2 63.9 mmHg (80.0-100.0); STICK SITE R.RADIAL; pH 7.386 (7.360-7.450); sO2 91.7 % (92.0-98.0); tCO2 34.7 mmol/L (24.0-30.0)
[2016-10-21 15:51] VITALS: BP 148/69
[2016-10-21 19:16] VITALS: BP 145/68
[2016-10-22 04:24] VITALS: BP 146/70
[2016-10-22 09:33] VITALS: BP 145/72
[2016-10-22 17:20] VITALS: BP 128/68
[2016-10-22 21:00] VITALS: BP 133/63
[2016-10-23 04:45] VITALS: BP 142/69
[2016-10-23 08:00] VITALS: BP 152/70
[2016-10-23] MEDS ORDERED: AZITHROMYCIN 2250 MG PO (08:55)
[2016-10-23 13:20] VITALS: BP 152/70
== END 2016-10-23 15:51 | disposition home or self-care (01) | DRG 189 ==
LOC: ER 16:42 → EROBS 18:36 → 4S 18:36
PROVIDERS: Emergency Medicine; Family Medicine; Internal Medicine Pulmonary Disease
DX: J96.21 Acute and chronic respiratory failure with hypoxia (principal); J44.1 Chronic obstructive pulmonary disease with (acute) exacerbation; Z68.41 Body mass index [BMI] 40.0-44.9, adult; L40.9 Psoriasis, unspecified; G47.33 Obstructive sleep apnea (adult) (pediatric); E11.9 Type 2 diabetes mellitus without complications; I25.10 Atherosclerotic heart disease of native coronary artery without angina pectoris; I27.2 Other secondary pulmonary hypertension; D64.9 Anemia, unspecified; E66.3 Overweight; Z98.61 Coronary angioplasty status; Z88.2 Allergy status to sulfonamides; Z88.1 Allergy status to other antibiotic agents; Z87.891 Personal history of nicotine dependence; Z82.49 Family history of ischemic heart disease and other diseases of the circulatory system; Z80.51 Family history of malignant neoplasm of kidney; Z79.4 Long term (current) use of insulin; Z86.73 Personal history of transient ischemic attack (TIA), and cerebral infarction without residual deficits; Z79.82 Long term (current) use of aspirin; Z79.899 Other long term (current) drug therapy

== ENCOUNTER → 2016-12-01 | Outpatient (CLI) | payer OTHER ==
[~2016-12-01] MED LIST changes: +AZITHROMYCIN 2250 MG PO
== END ==
LOC: RAD 10:55
DX: J44.9 Chronic obstructive pulmonary disease, unspecified (principal)

== ENCOUNTER 2016-12-05 11:53 | Inpatient (IN) | payer OTHER ==
[~2016-12-05] VITALS: Ht 160 cm; Wt 98.9 kg
--- NOTE | ~2016-12-05 | 2DMMODE ---
[facility] [place] [address] 2 D/M-MODE ECHOCARDIOGRAM Name: HARVINDERSERAFIN Trever Room #: 461-P ADM IN M.R.#: [id number] Admission: 12/05/16 Attend Phys: Philippe Fonseca Discharge: Date of : 56 Date of Service: 12/07/16 0845 Report #: [id number] THIS REPORT FOR: //name// APPROVED REPORT Study performed: 12/07/2016 05:53:39 EXAM: Comprehensive 2D, Doppler, and color-flow Echocardiogram Patient Location: Bedside Room #: 461 Status: routine BSA: 2.03 HR: 63 bpm BP: 142/65 mmHg Rhythm: NSR Other Information Study Quality: Good Indications Respiratory failure. Hx: COPD, CAD, stents 2D Dimensions RVDd: 41.10 mm LVEF(%): 42.52 (>50%) IVSd: 10.74 (7-11mm) LVOT Diam: 19.97 (18-24mm) LVDd: 54.91 mm PWd: 11.15 (7-11mm) Ascending Ao: 36.41 (22-36mm) LVDs: 43.30 (25-40mm) Aortic Root: 32.65 mm Pino's LVEF: 42.52 % Volumes Left Atrial Volume (Systole) Single Plane 4CH: 61.27 mL Single Plane 2CH: 78.72 mL LA ESV Index: 37.00 mL/m2 Aortic Valve AoV Peak Nitin.: 2.29 m/s AO Peak Gr.: 20.99 mmHg LVOT Max P.04 mmHg AO Mean Gr.: 11.14 mmHg AO V2 Mean: 1.60 m/s LVOT Max V: 1.00 m/s AO V2 VTI: 57.52 cm SONNY Vmax: 1.[address] [facility] [place] [address] 2 D/M-MODE ECHOCARDIOGRAM Name: SERAFIN BLANTON Room #: 461-P [facility].#: [id number] Admission: 12/05/16 Attend Phys: Philippe Fonseca Discharge: Date of : 56 Date of Service: 12/07/16 0845 Report #: [id number] E/A Ratio: 0.8 MV Decel. Time: 141.48 ms MV E Max Nitin.: 1.04 m/s MV A Nitin.: 1.25 m/s MV PHT: 41.03 ms IVRT: 89.97 ms Pulmonary Valve PV Peak Nitin.: 0.99 m/s PV Peak Gr.: 3.89 mmHg Pulmonary Vein P Vein S: 0.66 m/s P Vein A: 0.28 m/s P Vein D: 0.48 m/s P Vein A Dur.: 106.1 msec P Vein S/D Ratio: 1.38 Tricuspid Valve TR Peak Nitin.: 3.20 m/s RAP Estimate: 15.00 mmHg TR Peak Gr.: 40.98 mmHg PA Pressure: 56.00 mmHg Left Ventricle The left ventricle is normal size. There is normal left ventricular wall thickness. Left ventricular systolic function is low normal. LVEF is 50%. Mild diastolic dysfunction is present (impaired relaxation pattern). Right Ventricle The right ventricle is normal size. The right ventricular systolic function is normal. Atria Left atrium is dilated. The right atrium size is normal. Aortic Valve Aortic valve is calcified. Mild aortic regurgitation. There is no aortic valvular stenosis. Mitral Valve Mitral valve leaflets are mildly thickened. Mild mitral regurgitation. Tricuspid Valve The tricuspid valve is normal in structure. There is mild tricuspid regurgitation. The right atrial pressure is estimated at 15 mmHg. There is moderate pulmonary hypertension with an estimated PAP of 56mmHg. [address] [address] 2 D/M-MODE ECHOCARDIOGRAM Name: SERAFIN BLANTON Room #: 461-P [facility] IN [facility].#: [id number] Admission: 12/05/16 Attend Phys: Philippe Fonseca Discharge: Date of : 56 Date of Service: 12/07/16 0845 Report #: [id number] Pulmonic Valve Pulmonic valve is not well visualized. Mild pulmonic regurgitation. Great Vessels The aortic root is normal in size. The ascending aorta is normal in size. IVC is dilated and collapses <50% with inspiration. Pericardium There is no pericardial effusion. <Conclusion> The left ventricle is normal size. Left ventricular systolic function is low normal. LVEF is 50%. Mild diastolic dysfunction is present (impaired relaxation pattern). Left atrium is dilated. The right atrium size is normal. Mild aortic regurgitation. Aortic valve is calcified. Mild mitral regurgitation. There is mild tricuspid regurgitation. The right atrial pressure is estimated at 15 mmHg. There is moderate pulmonary hypertension with an estimated PAP of 56mmHg. There is no pericardial effusion. <ELECTRONICALLY SIGNED> By: Trevor Loza MD, FACC 12/07/1645 4 4 Trevor Loza MD, FACC /INF
--- NOTE | ~2016-12-05 | EKG ---
[address] [place] [address] ELECTROCARDIOGRAM REPORT Name: HARVINDERSERAFIN Trever Room #: 461-P ADM IN M.R.#: [id number] Admission: 12/05/16 Attend Phys: Philippe Elliott Discharge: Date of : 56 Report #: [id number] THIS REPORT FOR: //name// [facility] ED Test Date: 2016-12-05 Test Time: 12:36:22 Pat Name: SERAFIN BLANTON Department: Room: 46 Gender: F Enterprise Analyst: HTHOM : 1960 Requested By: Rafael Martinez Order Number: [id number] MD: Otis Hernandez Measurements Intervals [place] Rate: 98 P: 53 [place]: 180 QRS: 56 QRSD: 129 T: 28 QT: 345 QTc: 441 Interpretive Statements Sinus rhythm Left atrial enlargement Nonspecific intraventricular conduction delay Baseline wander in lead(s) I,II,aVR,aVL,V3 Compared to ECG 10/20/2016 17:02:15 Intraventricular conduction delay now present Sinus tachycardia no longer present Electronically Signed On 12-06-2016 22:16:43 CDT by Otis Hernandez [email or web address] <ELECTRONICALLY SIGNED> By: Otis Hernandez MD 12/06/16 2216 1236 1236 Otis Hernandez MD /EPI
[2016-12-05 11:59] VITALS: BP 151/71
[2016-12-05] MEDS ORDERED: AUGMENTIN 875875 MG PO (12:29)
[2016-12-05 12:36] LABS: HEMATOCRIT 31.2 % (37.0-47.0); HEMOGLOBIN 10.1 gm/dL (12.0-15.0); MCH 27.8 pg (26.0-34.0); MCHC 32.3 g/dL (28.0-37.0); MCV 85.9 fL (80.0-100.0); PLATELET COUNT 151 thou/uL (150-400); RBC 3.64 mil/uL (4.20-5.00); RDW 21.5 % (10.5-14.5); WBC 19.4 thou/uL (4.0-11.0)
[2016-12-05 12:39] LABS: MANUAL DIFF YES
[2016-12-05 12:44] LABS: ANION GAP 7 mmol/L (7-16); BUN 17 mg/dL (7-18); CALCIUM 9.6 mg/dL (8.5-10.1); CHLORIDE 98 mmol/L (98-107); CO2 35 mmol/L (21-32); CREATININE 1.3 mg/dL (0.6-1.0); GLUCOSE 226 mg/dL (74-106); POTASSIUM 4.7 mmol/L (3.5-5.1); SODIUM 140 mmol/L (136-145)
[2016-12-05 12:49] LABS: APTT 24.3 Seconds (24.5-32.8); PROTIME 10.2 Seconds (9.3-11.4)
[2016-12-05 12:53] LABS: ALBUMIN 3.4 g/dL (3.4-5.0); ALKALINE PHOSPHATASE 56 U/L (46-116); MAGNESIUM 1.7 mg/dL (1.8-2.4); SGOT 22 U/L (15-37); SGPT 12 U/L (30-65); TOTAL BILIRUBIN 0.3 mg/dL (<0.1-1.0); TOTAL PROTEIN 8.5 g/dL (6.4-8.2); TROPONIN-I < 0.04 ng/mL (<0.04-0.07)
[2016-12-05 12:53] LABS: ABG SAMPLE TYPE ARTERIAL; BE(vivo) 3.3 mmol/L (-2 to +3); HCO3 32.1 mmol/L (22.0-26.0); LACTATE 2.11 mmol/L (0.5-2.0); O2(CT) 13.4 mL/dL (15.0-23.0); O2Hb 88.1 % (92.0-98.0); PO2 64.8 mmHg (80.0-100.0); STICK SITE L.RADIAL; pH 7.255 (7.360-7.450); sO2 88.5 % (92.0-98.0); tCO2 34.4 mmol/L (24.0-30.0)
[2016-12-05 13:01] LABS: CK-MB MASS < 0.5 ng/mL (<0.5-3.6); NT-PRO BRAIN NAT PEPTIDE 1746 pg/mL (<300)
[2016-12-05 13:39] LABS: ABSOLUTE NEUTROPHILS 16.5 thou/uL (1.4-8.2); ANISOCYTOSIS 1+; TOTAL CELL COUNT 100
[2016-12-05 14:07] LABS: ABG SAMPLE TYPE ARTERIAL; BE(vivo) 6.8 mmol/L (-2 to +3); HCO3 35.8 mmol/L (22.0-26.0); LACTATE 1.37 mmol/L (0.5-2.0); O2(CT) 14.3 mL/dL (15.0-23.0); O2Hb 96.5 % (92.0-98.0); PCO2 81.3 mmHg (35.0-45.0); STICK SITE L.RADIAL; pH 7.262 (7.360-7.450); sO2 98.3 % (92.0-98.0); tCO2 38.3 mmol/L (24.0-30.0)
[2016-12-05 14:09] LABS: Pressure Support 14 cm H20; VDS BIPAP SPONT TIMED cc
[2016-12-05 14:22] VITALS: BP 127/68
[2016-12-05 15:10] VITALS: BP 119/61
[2016-12-05 15:44] VITALS: BP 141/73
[2016-12-05 20:29] VITALS: BP 138/72
[2016-12-05 23:30] VITALS: BP 128/73
[2016-12-06 03:19] VITALS: BP 140/77
[2016-12-06 05:31] LABS: ABG SAMPLE TYPE ARTERIAL; BE(vivo) -0.1 mmol/L (-2 to +3); HCO3 27.8 mmol/L (22.0-26.0); O2(CT) 13.9 mL/dL (15.0-23.0); O2Hb 94.1 % (92.0-98.0); PCO2 63.1 mmHg (35.0-45.0); sO2 95.6 % (92.0-98.0); tCO2 29.7 mmol/L (24.0-30.0)
[2016-12-06 05:32] LABS: STICK SITE LBA
[2016-12-06 05:35] LABS: ABG COMMENT BIPAP16/6 10 40%; Pressure Support 16 cm H20; pH 7.262 (7.360-7.450)
[2016-12-06 08:11] VITALS: BP 141/77
[2016-12-06 16:41] VITALS: BP 156/73
[2016-12-06 20:43] VITALS: BP 153/72
[2016-12-07 04:25] VITALS: BP 142/65
[2016-12-07 08:49] VITALS: BP 159/91
[2016-12-07 08:54] LABS: ABG SAMPLE TYPE ARTERIAL; BE(vivo) 0 mmol/L (-2 to +3); HCO3 26.4 mmol/L (22.0-26.0); O2(CT) 12.8 mL/dL (15.0-23.0); O2Hb 92.5 % (92.0-98.0); PCO2 51.6 mmHg (35.0-45.0); PO2 75.7 mmHg (80.0-100.0); sO2 94.1 % (92.0-98.0)
[2016-12-07 08:55] LABS: STICK SITE R.RADIAL; pH 7.327 (7.360-7.450)
[2016-12-07 13:24] VITALS: BP 153/87
[2016-12-07 16:53] VITALS: BP 165/85
[2016-12-07 21:01] VITALS: BP 157/85
[2016-12-08 06:02] VITALS: BP 123/73
[2016-12-08 10:15] VITALS: BP 159/79
[2016-12-08 14:44] VITALS: BP 154/54
[2016-12-08 16:40] VITALS: BP 160/82
[2016-12-08 19:47] VITALS: BP 158/83
[2016-12-09 04:04] VITALS: BP 122/71
[2016-12-09 08:18] VITALS: BP 157/85
[2016-12-09 12:02] VITALS: BP 149/66
[2016-12-09 16:12] VITALS: BP 166/72
[2016-12-09 20:33] VITALS: BP 129/62
[2016-12-10 03:24] VITALS: BP 133/59
[2016-12-10 08:00] VITALS: BP 121/60
[2016-12-10] MEDS ORDERED: LEVAQUIN 750 M750 MG PO (10:43)
[2016-12-10] MEDS ORDERED: PREDNISONE 20 M20 MG PO (10:45)
[2016-12-10 10:56] VITALS: BP 121/60
[2016-12-10 12:00] VITALS: BP 110/47
== END 2016-12-10 14:41 | disposition home or self-care (01) | DRG 871 ==
LOC: ER 11:53 → 4W 13:26 → EROBS 13:26 → 4W 14:05
PROVIDERS: Emergency Medicine; Hospitalist; Internal Medicine Pulmonary Disease
PROC: 5A09557 Assistance with Respiratory Ventilation, Greater than 96 Consecutive Hours, Continuous Positive Airway Pressure (ICD-10-PCS; principal; 2016-12-05)
DX: A41.9 Sepsis, unspecified organism (principal); J96.22 Acute and chronic respiratory failure with hypercapnia; J44.1 Chronic obstructive pulmonary disease with (acute) exacerbation; I10 Essential (primary) hypertension; L40.9 Psoriasis, unspecified; E11.65 Type 2 diabetes mellitus with hyperglycemia; E66.01 Morbid (severe) obesity due to excess calories; G47.33 Obstructive sleep apnea (adult) (pediatric); E78.5 Hyperlipidemia, unspecified; I25.10 Atherosclerotic heart disease of native coronary artery without angina pectoris; Z95.5 Presence of coronary angioplasty implant and graft; Z86.73 Personal history of transient ischemic attack (TIA), and cerebral infarction without residual deficits; Z90.49 Acquired absence of other specified parts of digestive tract; Z79.899 Other long term (current) drug therapy; Z88.2 Allergy status to sulfonamides; Z88.1 Allergy status to other antibiotic agents; Z87.891 Personal history of nicotine dependence; Z82.49 Family history of ischemic heart disease and other diseases of the circulatory system; Z80.8 Family history of malignant neoplasm of other organs or systems; Z68.38 Body mass index [BMI] 38.0-38.9, adult; Z79.52 Long term (current) use of systemic steroids
CPT/HCPCS: 10045

== ENCOUNTER 2017-01-04 17:18 | Inpatient (IN) | payer OTHER ==
[~2017-01-04] VITALS: Ht 160 cm; Wt 101.2 kg
--- NOTE | ~2017-01-04 | HC ---
[facility] [place] [address] CONSULTATION Name: SERAFIN BLANTON Room #: 454-P [facility] IN .R.#: [id number] Admission: 01/04/17 Attend Phys: Izaiah Bang MD Discharge: Date of : 56 Report #: [id number] THIS REPORT FOR: //name// CC: Izaiah Ndiaye REASON FOR CONSULTATION: I was asked to evaluate concerning lower respiratory tract infection. HISTORY OF PRESENT ILLNESS: The patient was a 56-year-old with underlying history of COPD who has been in and out of the hospital almost monthly since April. She is on oxygen at home at 5 liters. She is on and off corticosteroids. She does use a steroid inhaler. She was on antibiotics most recently in November as well as a steroid taper. She is also under cardiology care for ischemic heart disease. She has moderate pulmonary hypertension and mild diastolic dysfunction. Presents now with worsening dyspnea. No fever or chills noted. She has had sputum production that has been moderately purulent without hemoptysis. Since admission, she has been placed on IV steroids and antibiotics. ALLERGIES: SULFA and TETRACYCLINE. MEDICATIONS: Zosyn, received a dose of Levaquin, fluconazole, azithromycin and ceftriaxone. Also, on Solu-Medrol. PAST MEDICAL HISTORY: Pneumonia, COPD, non-STEMI, pulmonary edema, diabetes, psoriasis, cardiac stents, hypertension, stroke, eye surgery, facial surgeries, eczema, cholecystectomy, appendectomy, tonsillectomy, obstructive sleep apnea, hypothyroidism and . FAMILY HISTORY: Coronary artery disease and liver cancer. SOCIAL HISTORY: Past smoker. No significant alcohol intake. REVIEW OF SYSTEMS: No nausea, vomiting, diarrhea, dysuria or frequency. PHYSICAL EXAMINATION: GENERAL: She was sitting up at the side of that the bed. She was alert and cooperative, in no acute distress, on 5 liters of oxygen per nasal cannula. SKIN: With eczema and psoriasis. LYMPHATICS: Unremarkable. HEENT: Unremarkable. LUNGS: Decreased breath sounds bilaterally with no consolidation. HEART: Regular. ABDOMEN: Obese, soft, nontender, no hepatosplenomegaly or mass. LABORATORY STUDIES: Sodium 137, potassium 4.8, bicarb of 34, creatinine 1.3. [facility] [address] [place] [address] CONSULTATION Name: SERAFIN BLANTON Room #: 454-P [facility] IN [facility].#: [id number] Admission: 01/04/17 Attend Phys: Izaiah Bang MD Discharge: Date of : 56 Report #: [id number] Liver function tests normal. Troponin negative. Hemoglobin 10.3, WBC 7.1, platelet count 147,000. Differential unremarkable. Sputum culture is pending. V/Q scan: Low probability. Chest x-ray: Mild patchy infiltrate, right lateral chest, right upper lobe and right middle lobe. Medial basilar atelectasis. IMPRESSION: Pneumonia exacerbating chronic obstructive pulmonary disease. This is community acquired, although she has had multiple hospital stays and must be concerned about the potential for nosocomial organisms. In addition, has diabetes and coronary artery disease. I would recommend continuing antibiotic coverage with azithromycin and Zosyn. Previous MRSA screen in August was negative. We will also check viral respiratory panel and urine antigens. We will adjust her antibiotics pending further data. By: 1835 0042 Rafael Malone MD /nt
--- NOTE | ~2017-01-04 | HC ---
[facility] [place] [address] CONSULTATION Name: SERAFIN BLANTON Room #: 454-P [facility] IN ..#: [id number] Admission: 01/04/17 Attend Phys: Izaiah Bang MD Discharge: Date of : 56 Report #: [id number] THIS REPORT FOR: //name// CC: Izaiah Ndiaye DATE OF SERVICE: 01/06/2017 HISTORY OF PRESENT ILLNESS: The patient is a 56-year-old white female with history of premorbid COPD, O2 dependent on 5 liters, who was admitted with worsening shortness of breath. She was diagnosed with acute on chronic respiratory failure, community-acquired pneumonia and concurrent congestive heart failure. She is being followed closely with Cardiology, Pulmonary Medicine, Internal Medicine as well as Infectious Disease. We are seeing her in rehabilitation medicine consultation. PAST MEDICAL HISTORY: Includes O2-dependent COPD, cardiac stents x 3, hypertension, diabetes mellitus type 2. She has had 4 prior CVAs in the remote past. She notes that she does have some mild residual left-sided weakness, especially when she is fatigued as well as some mild aphasia or speech difficulties when she is tired. She has had a cholecystectomy, tonsillectomy, appendectomy. PAST SURGICAL HISTORY: As noted above. FAMILY HISTORY: Includes heart disease and liver cancer. HABITS: Former tobacco smoker, 2 packs per day for 25 years, quit back in 2000, no history of alcohol abuse. ALLERGIES: SULFA AND TETRACYCLINE. SOCIAL HISTORY: Lives in a house with her son. She was modified independent in the house using her oxygen without gait aids. Out in the community, she will use a walker. Her son drives to places and she has concerns regarding transportation as she feels she is a burden with all the transportation he has to provide. REVIEW OF SYSTEMS: No current complaints of chest pain, shortness of breath or abdominal discomfort. She does get short of breath and will be desaturate with limited activity. No focal extremity pain complaints. PHYSICAL EXAMINATION: GENERAL: A 56-year-old pleasant, obese white female in no obvious distress. VITAL SIGNS: Last recorded temperature 97.3, pulse 101, respirations are 20, blood pressure 173/87. [facility] [address] [place] [address] CONSULTATION Name: SERAFIN BLANTON Room #: 454-P [facility] IN [facility].#: [id number] Admission: 01/04/17 Attend Phys: Izaiah Bang MD Discharge: Date of : 56 Report #: [id number] NEUROLOGIC: The patient is alert. She is pleasant. HEENT: Appeared to be benign. Cranial nerves are grossly intact. EXTREMITIES: She has functional range of motion of both upper extremities with strength grade 4- to 4/5. DTRs are trace to 1. In her lower extremities, there is no focal calf swelling, functional range of motion with strength grade 4 to 4-/5. DTRs are trace to 1. She notes that she gets up and is utilizing the bedside commode apparently with assistance. She has not been able to go back and forth to the bathroom due to her pulmonary condition. ASSESSMENT: A 56-year-old white female with the following problems: 1. Pulmonary rehabilitation. 2. Medical complexity with generalized debilitation. 3. Acute on chronic respiratory failure. 4. Concurrent congestive heart failure. 5. Community-acquired pneumonia. 6. Premorbid chronic obstructive pulmonary disease, O2 dependent on 5 liters. 7. Diabetes mellitus. 8. Hypertension. 9. History of 4 prior cerebrovascular accidents with some mild residual left-sided weakness and aphasia when fatigued. PLAN: Lab, physical therapy and occupational therapy. We will see how she does with her therapy evaluations and will be glad to follow along with you regarding her rehab therapy needs. <ELECTRONICALLY SIGNED> By: Tigre Ray MD 01/07/17 1608 1234 0418 Tigre Ray MD /nt
--- NOTE | ~2017-01-04 | HC ---
[facility] [place] [address] CONSULTATION Name: SERAFIN BLANTON Room #: 454-P [facility] IN .R.#: [id number] Admission: 01/04/17 Attend Phys: Izaiah Bang MD Discharge: Date of : 56 Report #: [id number] THIS REPORT FOR: //name// CC: Izaiah Ndiaye PRIMARY PHYSICIAN: Addis Ndiaye DO REFERRAL PHYSICIAN: Izaiha Bang MD REASON FOR REFERRAL: COPD. HISTORY OF PRESENT ILLNESS: The patient is a 56-year-old white female with COPD, presents to emergency room with progressive dyspnea. A pulmonary consultation was requested. This is one of many hospitalizations since February for this patient. She was last hospitalized in November 2016, for COPD exacerbation. The patient states that she has been doing fairly well since discharge until the last several days, states she has had trouble with increasing dyspnea, cough productive of yellow sputum. She called over the office. Dr. Fall recommended that she comes to the emergency room. Her cough has become discolored with whitish brown in color. Otherwise, denies any chest pain, nausea, vomiting, diarrhea, and hemoptysis. PAST MEDICAL HISTORY: Notable for COPD, severe impairment, baseline FEV1 of 0.5 liters or 24% predicted, ANNE with obesity hypoventilation syndrome, on BiPAP at 18/10 cmH2O, on 4 liters of O2 chronically along with BiPAP use, multiple hospitalizations, antiphospholipid antibody syndrome with multiple CVAs, the patient had declined anticoagulation in the past, patent foramen ovale, essential hypertension, diabetes mellitus type 2, hyperlipidemia, GERD, coronary artery disease, remote history of endocarditis, moderate LV dysfunction by cardiac catheterization, echo from September 2013 showed EF 50%. PAST SURGICAL HISTORY: Status post carotid stent placement, facial reconstruction surgery, . ALLERGIES: SULFA, which causes rash; TETRACYCLINE causes rash, and DEXILANT causes nausea. HOME MEDICATIONS: List reviewed. This include ProAir, Symbicort 160 mcg 2 puffs twice a day, nebulized albuterol, Plavix, Claritin, Daliresp 500 mcg once a day, Mucinex, Prilosec 20 mg once a day, Lasix, potassium supplements, aspirin, linagliptin, Synthroid, insulin supplements, Invokana, , and Imdur. [address] [address] CONSULTATION Name: SERAFIN BLANTON Room #: 454-P [facility] IN ..#: [id number] Admission: 01/04/17 Attend Phys: Izaiah Bang MD Discharge: Date of : 56 Report #: [id number] FAMILY HISTORY: Notable for heart disease in the father who at the age of 57, mother , cause unknown. SOCIAL HISTORY: She is . Lives with her son. She has smoked, but quit many years ago. She is on disability. She denies any alcohol use. REVIEW OF SYSTEMS: As mentioned above, otherwise 10-point system review negative. PHYSICAL EXAMINATION: GENERAL: She is awake, alert, in moderate respiratory distress. VITAL SIGNS: Temperature is 98 degrees Fahrenheit, pulse is 100, respiratory rate is 20, blood pressure 149/77 mmHg, saturation is 92% on 5 liters of O2. HEENT: Normocephalic, atraumatic. NECK: Supple, without any lymphadenopathy or thyromegaly. CHEST: Breath sounds are decreased bilaterally without obvious wheezes. Expiratory phase is mildly prolonged. CARDIOVASCULAR: Heart sounds are distant. No murmurs or gallops. Pulses are 2+/4+ bilaterally. BREASTS: Deferred. ABDOMEN: Soft, nontender, obese. No masses felt. GENITOURINARY: Deferred. RECTAL: Deferred. EXTREMITIES: No cyanosis or clubbing. Trace edema bilaterally. LABORATORY DATA: Portable chest x-ray shows no significant changes except for possible bibasilar interstitial infiltrates. BNP is 3500. Troponin is normal. EKG shows no acute changes. Electrolytes are normal except for bicarb of 34, BUN is 22, creatinine is 1.3. Liver function profile is unremarkable. Glucose is 200. WBC 7100, hemoglobin 10.3. Albumin 3.8. Arterial blood gas revealed pH 7.39, pCO2 of 56, pO2 of 66 on 5 liters of O2. IMPRESSION: 1. Acute on chronic hypercapnic hypoxic respiratory failure in this 56-year-old white female. Etiology may be related to acute bronchitis and possible early pneumonia based on chest x-ray findings. 2. Chronic obstructive pulmonary disease, severe impairment with oxygen dependent on 4 liters. 3. Obstructive sleep apnea with obesity hypoventilation syndrome, on BiPAP 18/10 cmH2O. 4. History of antiphospholipid antibody syndrome with multiple cerebrovascular accidents, the patient has refused anticoagulation in the past. 5. History of patent foramen ovale. 6. Essential hypertension. 7. Diabetes mellitus type 2. [facility] [address] [address] CONSULTATION Name: SERAFIN BLANTON Room #: 454-P [facility] IN .R.#: [id number] Admission: 01/04/17 Attend Phys: Izaiah Bang MD Discharge: Date of : 56 Report #: [id number] 8. Gastroesophageal reflux disease. 9. Coronary artery disease. 10. Remote history of endocarditis. 11. Mild diastolic left ventricular dysfunction. 12. Pulmonary hypertension, moderate with a PA pressures around 56 mmHg due to chronic pulmonary disease along with sleep apnea. 13. Obesity. 14. Frequent hospitalizations. It is unclear if the patient is compliant with the medication or perhaps that may be environmental exposures at home. Investing this issues may be helpful. RECOMMENDATION: Agree with corticosteroids and bronchodilator therapy. Broad spectrum antibiotic is also recommended. With a recent hospitalization, she should be covered for nosocomial infections. antibiotics. DVT and GI prophylaxis will be addressed. Continue BiPAP during sleep. <ELECTRONICALLY SIGNED> By: Odell Ortiz MD 01/07/17 1233 1047 1525 Odell Ortiz MD /nt
--- NOTE | ~2017-01-04 | EKG ---
[address] [address] ELECTROCARDIOGRAM REPORT Name: SERAFIN BLANTON Room #: 454-P ADM IN .R.#: [id number] Admission: 01/04/17 Attend Phys: Izaiah Bang MD Discharge: Date of : 56 Report #: [id number] THIS REPORT FOR: //name// [facility] ED Test Date: 2017-01-04 Test Time: 17:35:36 Pat Name: SERAFIN BLANTON Department: Room: [facility] Gender: F Hair Cutter: ZAIRA : 1960 Requested By: Rafael Martinez Order Number: [id number] MD: Delfino Pollack Measurements Intervals [place] Rate: 109 P: 55 [place]: 160 QRS: 47 QRSD: 94 T: 34 QT: 344 QTc: 464 Interpretive Statements Sinus tachycardia Otherwise no significant abnormality Compared to ECG 12/05/2016 12:36:22 No significant change was found Electronically Signed On 01-05-2017 8:19:32 CDT by Delfino Pollack [email or web address] <ELECTRONICALLY SIGNED> By: Delfino Pollack MD, [facility] 01/05/1719 1735 1735 Delfino Pollack MD, [facility] /EPI
[~2017-01-04 17:18] MED LIST changes: +LEVAQUIN 750 M750 MG PO
[2017-01-04 17:19] VITALS: BP 169/80
[2017-01-04] MEDS ORDERED: TOPROL XL100 MG PO (17:52)
[2017-01-04] MEDS ORDERED: IMDUR 30 MG TAB30 M1 PO (17:54)
[2017-01-04 18:15] LABS: ABG SAMPLE TYPE ARTERIAL; BE(vivo) 7.8 mmol/L (-2 to +3); LACTATE 2.11 mmol/L (0.5-2.0); O2(CT) 14.1 mL/dL (15.0-23.0); O2Hb 91.1 % (92.0-98.0); PCO2 56.6 mmHg (35.0-45.0); PO2 66.9 mmHg (80.0-100.0); STICK SITE R.RADIAL; pH 7.397 (7.360-7.450); sO2 92.8 % (92.0-98.0); tCO2 35.8 mmol/L (24.0-30.0)
[2017-01-04 18:16] LABS: ABG COMMENT NO COMPLICATIONS.
[2017-01-04 18:32] LABS: ABSOLUTE NEUTROPHILS 5.7 thou/uL (1.4-8.2); BASOPHILS 0.5 % (0.0-2.0); HEMATOCRIT 31.3 % (37.0-47.0); HEMOGLOBIN 10.3 gm/dL (12.0-15.0); LYMPHOCYTES 12.9 % (24.0-44.0); MCHC 32.9 g/dL (28.0-37.0); MCV 85.1 fL (80.0-100.0); MONOCYTES 5.3 % (1.0-8.0); PLATELET COUNT 147 thou/uL (150-400); POLYS 80.3 % (36.0-66.0); RBC 3.68 mil/uL (4.20-5.00); RDW 19.3 % (10.5-14.5); WBC 7.1 thou/uL (4.0-11.0)
[2017-01-04 18:34] LABS: MANUAL DIFF NO
[2017-01-04 18:40] LABS: ANION GAP 4 mmol/L (7-16); BUN 17 mg/dL (7-18); CALCIUM 9.7 mg/dL (8.5-10.1); CHLORIDE 97 mmol/L (98-107); CO2 36 mmol/L (21-32); CREATININE 1.3 mg/dL (0.6-1.0); GLUCOSE 201 mg/dL (74-106); POTASSIUM 3.9 mmol/L (3.5-5.1); SODIUM 137 mmol/L (136-145)
[2017-01-04 18:50] LABS: ALBUMIN 3.7 g/dL (3.4-5.0); ALKALINE PHOSPHATASE 53 U/L (46-116); MAGNESIUM 1.4 mg/dL (1.8-2.4); SGOT 17 U/L (15-37); SGPT 19 U/L (30-65); TOTAL BILIRUBIN 0.4 mg/dL (<0.1-1.0); TOTAL PROTEIN 8.2 g/dL (6.4-8.2); TROPONIN-I < 0.04 ng/mL (<0.04-0.07)
[2017-01-04 18:51] LABS: APTT 34.5 Seconds (24.5-32.8); PROTIME 10.6 Seconds (9.3-11.4)
[2017-01-04 20:24] VITALS: BP 136/73
[2017-01-04 21:20] VITALS: BP 155/91
[2017-01-04] MEDS ORDERED: RANEXA500 MG PO (23:02)
[2017-01-04 23:47] VITALS: BP 155/102
[2017-01-05 04:14] VITALS: BP 153/101
[2017-01-05 06:09] LABS: CREATININE 1.3 mg/dL (0.6-1.0); MAGNESIUM 2.3 mg/dL (1.8-2.4); POTASSIUM 4.8 mmol/L (3.5-5.1)
[2017-01-05 07:33] VITALS: BP 149/77
[2017-01-05 12:36] VITALS: BP 141/72
[2017-01-05 15:25] VITALS: BP 135/78
[2017-01-05 19:41] VITALS: BP 143/81; BP 181/93
[2017-01-06 04:48] VITALS: BP 156/86
[2017-01-06 04:53] LABS: HEMATOCRIT 29.4 % (37.0-47.0); HEMOGLOBIN 9.7 gm/dL (12.0-15.0); MCHC 32.9 g/dL (28.0-37.0); MCV 85.1 fL (80.0-100.0); RBC 3.46 mil/uL (4.20-5.00); RDW 19.7 % (10.5-14.5); WBC 6.2 thou/uL (4.0-11.0)
[2017-01-06 05:06] LABS: CALCIUM 9.6 mg/dL (8.5-10.1); CREATININE 1.7 mg/dL (0.6-1.0); POTASSIUM 5.5 mmol/L (3.5-5.1)
[2017-01-06 07:42] LABS: ABG SAMPLE TYPE ARTERIAL; BE(vivo) 6.5 mmol/L (-2 to +3); LACTATE 1.01 mmol/L (0.5-2.0); O2(CT) 13.8 mL/dL (15.0-23.0); O2Hb 89.5 % (92.0-98.0); PCO2 57.9 mmHg (35.0-45.0); PO2 65.7 mmHg (80.0-100.0); pH 7.374 (7.360-7.450); tCO2 34.8 mmol/L (24.0-30.0)
[2017-01-06 07:43] LABS: STICK SITE R.RADIAL
[2017-01-06 08:05] VITALS: BP 173/87
[2017-01-06 12:15] VITALS: BP 133/67
[2017-01-06 16:36] VITALS: BP 135/75
[2017-01-06 20:08] VITALS: BP 149/83
[2017-01-07 04:01] VITALS: BP 144/76
[2017-01-07 04:20] LABS: HEMATOCRIT 30.3 % (37.0-47.0); HEMOGLOBIN 9.9 gm/dL (12.0-15.0); MCH 28.1 pg (26.0-34.0); MCHC 32.6 g/dL (28.0-37.0); MCV 86.4 fL (80.0-100.0); RBC 3.51 mil/uL (4.20-5.00); RDW 19.6 % (10.5-14.5); WBC 7.2 thou/uL (4.0-11.0)
[2017-01-07 04:54] LABS: CALCIUM 9.4 mg/dL (8.5-10.1); CREATININE 1.7 mg/dL (0.6-1.0)
[2017-01-07 04:57] LABS: POTASSIUM 4.4 mmol/L (3.5-5.1)
[2017-01-07 07:49] VITALS: BP 152/87
[2017-01-07 11:24] VITALS: BP 141/89
[2017-01-07 15:47] VITALS: BP 144/84
[2017-01-07 19:50] VITALS: BP 151/75
[2017-01-08 02:46] VITALS: BP 144/73
[2017-01-08 05:50] LABS: CALCIUM 8.9 mg/dL (8.5-10.1); CREATININE 1.5 mg/dL (0.6-1.0)
[2017-01-08 08:30] VITALS: BP 162/80
[2017-01-08] MEDS ORDERED: PREDNISONE 10 M10 M1 PO (08:50)
[2017-01-08] MEDS ORDERED: CEFDINIR300 MG PO (12:42)
[2017-01-08 13:53] VITALS: BP 162/80
[2017-01-08 23:08] LABS: INFLUENZA B Negative (Negative); METAPNEUMOVIRUS Negative (Negative)
== END 2017-01-08 16:14 | disposition home or self-care (01) | DRG 871 ==
LOC: ER 17:18 → 4W 20:03 → EROBS 20:03 → 4W 20:24
PROVIDERS: Emergency Medicine; Hospitalist; Internal Medicine Cardiovascular Disease; Internal Medicine Pulmonary Disease; Nurse Practitioner Acute Care; Specialist
DX: A41.9 Sepsis, unspecified organism (principal); J18.9 Pneumonia, unspecified organism; J96.22 Acute and chronic respiratory failure with hypercapnia; J96.21 Acute and chronic respiratory failure with hypoxia; J44.0 Chronic obstructive pulmonary disease with (acute) lower respiratory infection; I50.40 Unspecified combined systolic (congestive) and diastolic (congestive) heart failure; E66.2 Morbid (severe) obesity with alveolar hypoventilation; D68.61 Antiphospholipid syndrome; I42.9 Cardiomyopathy, unspecified; I69.954 Hemiplegia and hemiparesis following unspecified cerebrovascular disease affecting left non-dominant side; I11.0 Hypertensive heart disease with heart failure; J44.9 Chronic obstructive pulmonary disease, unspecified; K21.9 Gastro-esophageal reflux disease without esophagitis; I27.2 Other secondary pulmonary hypertension; I25.10 Atherosclerotic heart disease of native coronary artery without angina pectoris; E11.9 Type 2 diabetes mellitus without complications; L40.9 Psoriasis, unspecified; E87.5 Hyperkalemia; R53.81 Other malaise; E03.9 Hypothyroidism, unspecified; E83.42 Hypomagnesemia; Z88.1 Allergy status to other antibiotic agents; Z88.2 Allergy status to sulfonamides; Z90.49 Acquired absence of other specified parts of digestive tract; Z82.49 Family history of ischemic heart disease and other diseases of the circulatory system; Z80.0 Family history of malignant neoplasm of digestive organs; Z87.891 Personal history of nicotine dependence; Z99.81 Dependence on supplemental oxygen; Z95.5 Presence of coronary angioplasty implant and graft; Z68.39 Body mass index [BMI] 39.0-39.9, adult
CPT/HCPCS: 10045

== ENCOUNTER 2017-01-28 19:12 | Inpatient (IN) | payer OTHER ==
[~2017-01-28] VITALS: Ht 3 cm; Wt 98.6 kg
--- NOTE | ~2017-01-28 | HC ---
[facility] [place] [address] CONSULTATION Name: SERAFIN BLANTON Room #: 213-P [facility] IN .R.#: [id number] Admission: 01/28/17 Attend Phys: Jeremy Howard MD Discharge: Date of : 56 Report #: [id number] THIS REPORT FOR: //name// CC: Umesh Howard REASON FOR CONSULTATION: I was asked to evaluate concerning lower respiratory tract infection. HISTORY OF PRESENT ILLNESS: The patient was a 56-year-old, underlying history of COPD and IgA deficiency. She has had issues with recurring COPD exacerbations and ____ pneumonia. She was hospitalized last month with exacerbation of her COPD and community-acquired pneumonia. CT scan of her sinuses at that time were unremarkable. No specific organism was identified. She was treated with corticosteroids, IV antibiotics and dismissed on cefdinir for 10 days. She finished this about a week or so ago, now presents with increasing rhinorrhea; sinus congestion; cough with white-colored sputum production, now brown-colored with shortness of breath and hypoxia. She states she does not run fevers. She denies any chills or sweats. Denies any travel. She lives with her son, has otherwise been well. She is on oxygen 5 liters at home. She has not been on any corticosteroids in the last week or two. She has pulmonary hypertension and ischemic heart disease. ALLERGIES: SULFA, TETRACYCLINE. MEDICATIONS: As noted on her MAR, which were reviewed. PAST MEDICAL HISTORY, FAMILY HISTORY AND SOCIAL HISTORY: Unchanged from her previous consultation of last month. REVIEW OF SYSTEMS: Denies any nausea, vomiting, diarrhea, dysuria or frequency. No pleuritic chest pain. No hemoptysis. PHYSICAL EXAMINATION: VITAL SIGNS: Afebrile and hemodynamically stable. She was on 7 liters of oxygen per nasal cannula. GENERAL: She was sitting up on side of her bed with her BiPAP mask on. She was in no acute distress. She had intermittent nonproductive cough. She was cushingoid. HEENT: Unremarkable. NECK: Supple. LUNGS: Clear with no consolidation. HEART: Regular, without murmur. ABDOMEN: Soft, nontender, no hepatosplenomegaly or mass. [address] [address] CONSULTATION Name: SERAFIN BLANTON Room #: 213-P [facility] IN ..#: [id number] Admission: 01/28/17 Attend Phys: Jeremy Howard MD Discharge: Date of : 56 Report #: [id number] LABORATORY STUDIES: Blood cultures are negative. Influenza antigen negative. Sodium 138, potassium 4.6, bicarbonate of 33, creatinine 1.2. Liver function test normal. Hemoglobin 10.1, WBC 8.5, platelet count 166,000. Chest x-ray: Lungs clear with underlying chronic changes, basilar atelectasis. IMPRESSION AND PLAN: A 56-year-old with exacerbation of her chronic obstructive pulmonary disease. Viral atypical bronchitis, most likely. We will continue with antibiotic therapy pending culture results. <ELECTRONICALLY SIGNED> By: Rafael Malone MD 02/01/17 1048 1208 1346 Rafael Malone MD /nt
--- NOTE | ~2017-01-28 | EKG ---
[address] [address] ELECTROCARDIOGRAM REPORT Name: SERAFIN BLANTON Room #: 170-6 ADM IN .R.#: [id number] Admission: 01/28/17 Attend Phys: Manish Prabhakar MD Discharge: Date of : 56 Report #: [id number] THIS REPORT FOR: //name// [facility] ED Test Date: 2017-01-28 Test Time: 19:26:14 Pat Name: SERAFIN BLANTON Department: Room: 170 Gender: F Wire Weaver: MILA : 1960 Requested By: Deidra Westbrook Order Number: [id number] MD: Otis Hernandez Measurements Intervals [place] Rate: 113 P: 79 [place]: 158 QRS: 55 QRSD: 90 T: 22 QT: 343 QTc: 471 Interpretive Statements Sinus tachycardia Baseline wander in lead(s) V1 Compared to ECG 01/04/2017 17:35:36 No significant changes Electronically Signed On 01-28-2017 22:43:26 CDT by Otis Hernandez [email or web address] <ELECTRONICALLY SIGNED> By: Otis Hernandez MD 01/28/17 2243 25 25 Otis Hernandez MD /EPI
[~2017-01-28 19:12] MED LIST changes: +IMDUR 30 MG TAB30 M1 PO; +RANEXA500 MG PO; +TOPROL XL100 MG PO
[2017-01-28 19:15] VITALS: BP 137/72
[2017-01-28 19:56] LABS: ABSOLUTE NEUTROPHILS 6.6 thou/uL (1.4-8.2); BASOPHILS 0.8 % (0.0-2.0); EOSINOPHILS 1.3 % (0.0-3.0); HEMATOCRIT 31.2 % (37.0-47.0); HEMOGLOBIN 10.1 gm/dL (12.0-15.0); LYMPHOCYTES 14.3 % (24.0-44.0); MCH 26.8 pg (26.0-34.0); MCHC 32.3 g/dL (28.0-37.0); MCV 82.9 fL (80.0-100.0); MONOCYTES 5.4 % (1.0-8.0); PLATELET COUNT 166 thou/uL (150-400); POLYS 78.2 % (36.0-66.0); RBC 3.77 mil/uL (4.20-5.00); RDW 19.7 % (10.5-14.5); WBC 8.5 thou/uL (4.0-11.0)
[2017-01-28 19:57] LABS: MANUAL DIFF NO
[2017-01-28 20:14] LABS: ANION GAP 5 mmol/L (7-16); BUN 16 mg/dL (7-18); CALCIUM 9.5 mg/dL (8.5-10.1); CHLORIDE 100 mmol/L (98-107); CO2 33 mmol/L (21-32); CREATININE 1.2 mg/dL (0.6-1.0); GLUCOSE 119 mg/dL (74-106); POTASSIUM 4.6 mmol/L (3.5-5.1); SODIUM 138 mmol/L (136-145)
[2017-01-28 20:19] LABS: ALBUMIN 3.5 g/dL (3.4-5.0); ALKALINE PHOSPHATASE 54 U/L (46-116); SGOT 26 U/L (15-37); SGPT 17 U/L (30-65); TOTAL BILIRUBIN 0.5 mg/dL (<0.1-1.0); TOTAL PROTEIN 7.9 g/dL (6.4-8.2); TROPONIN-I < 0.04 ng/mL (<0.04-0.07)
[2017-01-28 20:39] LABS: ABG SAMPLE TYPE ARTERIAL; BE(vivo) 7.1 mmol/L (-2 to +3); HCO3 33.8 mmol/L (22.0-26.0); LACTATE 1.23 mmol/L (0.5-2.0); O2(CT) 13.8 mL/dL (15.0-23.0); O2Hb 90.6 % (92.0-98.0); PO2 70.1 mmHg (80.0-100.0); STICK SITE R.RADIAL; pH 7.369 (7.360-7.450); sO2 93.2 % (92.0-98.0); tCO2 35.7 mmol/L (24.0-30.0)
[2017-01-28 21:51] VITALS: BP 139/72
[2017-01-28 22:46] VITALS: BP 136/64
[2017-01-28 23:15] VITALS: BP 157/84
[2017-01-29 03:41] VITALS: BP 155/93
[2017-01-29 08:00] VITALS: BP 161/99
[2017-01-29 12:00] VITALS: BP 151/92
[2017-01-29 15:26] VITALS: BP 151/92
[2017-01-29 16:11] VITALS: BP 143/80
[2017-01-29 20:08] VITALS: BP 141/78
[2017-01-30 03:40] LABS: ABSOLUTE NEUTROPHILS 5.4 thou/uL (1.4-8.2); BASOPHILS 0.1 % (0.0-2.0); EOSINOPHILS 0.2 % (0.0-3.0); HEMATOCRIT 28.6 % (37.0-47.0); HEMOGLOBIN 9.2 gm/dL (12.0-15.0); LYMPHOCYTES 9.6 % (24.0-44.0); MCH 26.9 pg (26.0-34.0); MONOCYTES 8.8 % (1.0-8.0); PLATELET COUNT 168 thou/uL (150-400); POLYS 81.3 % (36.0-66.0); RBC 3.41 mil/uL (4.20-5.00); RDW 19.5 % (10.5-14.5); WBC 6.6 thou/uL (4.0-11.0)
[2017-01-30 03:50] LABS: CALCIUM 9.2 mg/dL (8.5-10.1); CREATININE 1.6 mg/dL (0.6-1.0); POTASSIUM 3.7 mmol/L (3.5-5.1)
[2017-01-30 04:24] LABS: MANUAL DIFF NO
[2017-01-30 04:39] VITALS: BP 133/80
[2017-01-30 08:12] VITALS: BP 154/71
[2017-01-30 12:14] VITALS: BP 153/86
[2017-01-30 16:32] VITALS: BP 149/76
[2017-01-30 20:17] VITALS: BP 166/89
[2017-01-31 04:11] VITALS: BP 161/92
[2017-01-31 08:35] VITALS: BP 150/70
[2017-01-31 11:35] VITALS: BP 140/68
[2017-01-31 16:55] VITALS: BP 131/63
[2017-01-31 19:44] VITALS: BP 153/75
[2017-01-31 21:11] VITALS: BP 153/75
[2017-02-01 03:13] VITALS: BP 163/90
[2017-02-01 03:45] LABS: HEMATOCRIT 29.1 % (37.0-47.0); HEMOGLOBIN 9.5 gm/dL (12.0-15.0); MCHC 32.5 g/dL (28.0-37.0); MCV 83.1 fL (80.0-100.0); PLATELET COUNT 162 thou/uL (150-400); RDW 19.2 % (10.5-14.5); WBC 6.7 thou/uL (4.0-11.0)
[2017-02-01 03:52] LABS: MANUAL DIFF YES
[2017-02-01 03:55] LABS: CALCIUM 9.3 mg/dL (8.5-10.1); CREATININE 1.3 mg/dL (0.6-1.0); MAGNESIUM 1.6 mg/dL (1.8-2.4); POTASSIUM 4.9 mmol/L (3.5-5.1)
[2017-02-01 04:33] LABS: ABSOLUTE NEUTROPHILS 5.8 thou/uL (1.4-8.2); ANISOCYTOSIS 2+; METAMYELOCYTES 2 %; MYELOCYTES 1 %; NUCLEATED RBCS 1 /100WBC; TOTAL CELL COUNT 100
[2017-02-01 04:34] LABS: POLYCHROMASIA OCCASIONAL
[2017-02-01 05:30] VITALS: BP 152/90
[2017-02-01 08:22] VITALS: BP 158/83
[2017-02-01 11:40] VITALS: BP 151/92
[2017-02-01 17:13] VITALS: BP 149/80
[2017-02-01 19:50] VITALS: BP 163/56
[2017-02-02 00:06] LABS: INFLUENZA B Negative (Negative); METAPNEUMOVIRUS Negative (Negative)
[2017-02-02 03:48] VITALS: BP 147/78
[2017-02-02 08:00] VITALS: BP 161/85
[2017-02-02] MEDS ORDERED: POTASSIUM20 PO (11:22)
[2017-02-02] MEDS ORDERED: PREDNISONE 10 M10 M1 PO (11:22)
[2017-02-02] MEDS ORDERED: SINGULAIR 10 MG10 M1 PO (11:22)
[2017-02-02] MEDS ORDERED: CEFDINIR300 MG PO (11:28)
[2017-02-02] MEDS ORDERED: AZITHROMYCIN 2250 MG PO (11:28)
[2017-02-02 11:33] VITALS: BP 151/92
[2017-02-02 12:00] VITALS: BP 166/83
[2017-02-02] MEDS ORDERED: ENOXAPARIN40 MG/0.1 SUBQ (15:54)
== END 2017-02-02 17:32 | disposition home health service (06) | DRG 871 ==
LOC: ER 19:12 → 2N 20:37 → EROBS 20:37 → 2N 22:47
PROVIDERS: Internal Medicine; Nurse Practitioner Acute Care; Physician Assistant
DX: A41.9 Sepsis, unspecified organism (principal); J96.20 Acute and chronic respiratory failure, unspecified whether with hypoxia or hypercapnia; J18.9 Pneumonia, unspecified organism; J44.1 Chronic obstructive pulmonary disease with (acute) exacerbation; D80.2 Selective deficiency of immunoglobulin A [IgA]; D68.61 Antiphospholipid syndrome; J44.0 Chronic obstructive pulmonary disease with (acute) lower respiratory infection; I10 Essential (primary) hypertension; E11.9 Type 2 diabetes mellitus without complications; E78.5 Hyperlipidemia, unspecified; I25.10 Atherosclerotic heart disease of native coronary artery without angina pectoris; E03.9 Hypothyroidism, unspecified; I27.20 Pulmonary hypertension, unspecified; E66.9 Obesity, unspecified; G47.33 Obstructive sleep apnea (adult) (pediatric); K21.9 Gastro-esophageal reflux disease without esophagitis; Z68.38 Body mass index [BMI] 38.0-38.9, adult; Z95.5 Presence of coronary angioplasty implant and graft; Z86.73 Personal history of transient ischemic attack (TIA), and cerebral infarction without residual deficits; Z90.49 Acquired absence of other specified parts of digestive tract; Z87.891 Personal history of nicotine dependence; Z79.02 Long term (current) use of antithrombotics/antiplatelets; Z79.82 Long term (current) use of aspirin; Z99.81 Dependence on supplemental oxygen; Z79.4 Long term (current) use of insulin; Z79.899 Other long term (current) drug therapy; Z88.1 Allergy status to other antibiotic agents; Z88.2 Allergy status to sulfonamides; Z82.49 Family history of ischemic heart disease and other diseases of the circulatory system; Z80.8 Family history of malignant neoplasm of other organs or systems
CPT/HCPCS: 10081

== ENCOUNTER 2017-03-05 05:21 | Inpatient (IN) | payer OTHER ==
[~2017-03-05] VITALS: Ht 152.4 cm; Wt 102.8 kg
[2017-03-05] VITALS (20 sets, daily range): BP systolic 110–163; BP diastolic 63–121
--- NOTE | ~2017-03-05 | EKG ---
[email or web address] [address] ELECTROCARDIOGRAM REPORT Name: SERAFIN BLANTON Room #: 240-P ADM IN M.R.#: [id number] Admission: 03/05/17 Attend Phys: Conor Leija MD Discharge: Date of : 56 Report #: [id number] THIS REPORT FOR: //name// [facility] ED Test Date: 2017-03-05 Test Time: 05:46:16 Pat Name: SERAFIN BLANTON Department: Room: 240 Gender: F Adjunct Psychology Instructor: MILA : 1960 Requested By: Cheryl Gerard Order Number: [id number] MD: Delfino Pollack Measurements Intervals [place] Rate: 125 P: 58 [place]: 141 QRS: 44 QRSD: 94 T: -43 QT: 325 QTc: 469 Interpretive Statements Sinus tachycardia Probable left atrial enlargement Borderline repolarization abnormality No previous ECG available for comparison Electronically Signed On 03-05-2017 8:57:55 NUT ORCHARDIST by Delfino Pollack [email or web address] <ELECTRONICALLY SIGNED> By: Delfino Pollack MD, [facility] 03/05/17 0857 [id number] 0546 Delfino Pollack MD, FACC /EPI
--- NOTE | ~2017-03-05 | HC ---
[facility] [place] [address] CONSULTATION Name: SERAFIN BLANTON Room #: 240-P [facility] IN M.R.#: [id number] Admission: 03/05/17 Attend Phys: Conor Leija MD Discharge: Date of : 56 Report #: [id number] THIS REPORT FOR: //name// CC: Conor Ndiaye REASON FOR CONSULTATION: I was asked to evaluate concerning respiratory tract infection in the setting of significant COPD. HISTORY OF PRESENT ILLNESS: The patient was a 56-year-old who was recently hospitalized at [facility] with an exacerbation of her COPD, lower respiratory tract infection. She was later transferred to [facility] skilled unit on 02/02/2017. She stayed there for approximately 2 weeks. She was on azithromycin and cefdinir at the time of discharge. Cultures remained negative at that time. She stated that over the last week or so, she has had increased cough and congestion with some wheezing. Returns back through the emergency room on 03/05/2017 with more shortness of breath. She typically is on oxygen at 6 liters per nasal cannula. At the time of admission, she remained afebrile, was tachycardic. Her x-ray showed mild right lower lobe infiltrate. She required increased oxygen. She remains on BiPAP. Initial blood gas showed a pO2 of 87, pCO2 of 89, pH 7.14 on an FIO2 of 60% on BiPAP. The white count was elevated at 15.9. She was transferred to the intensive care unit where she resides at now. She remains afebrile and hemodynamically stable. She is up in her chair on BiPAP. Minimal sputum production. No fever. No GI or complaints. She has been treated with Zosyn. ALLERGIES: SULFA and TETRACYCLINE. MEDICATIONS: As noted on JUN, now on Zosyn. PAST MEDICAL HISTORY, FAMILY HISTORY, SOCIAL HISTORY: Unchanged from her previous consultation. REVIEW OF SYSTEMS: Noted above. PHYSICAL EXAMINATION: VITAL SIGNS: Afebrile and hemodynamically stable. GENERAL: She is alert and cooperative and pleasant, in no acute distress. She was cushingoid. SKIN: Had dermatitis to her hands. HEENT: Unremarkable. LUNGS: Few crackles in the bases bilaterally, mostly on the right. HEART: Regular, without murmur. ABDOMEN: Soft, nontender, no hepatosplenomegaly or mass. LABORATORY STUDIES: Sodium 141, potassium 4.6, creatinine 1.3, alkaline phosphatase 40, ALT 29, albumin at 2.9. Hemoglobin 8.7, white count 7.4, [address] [address] CONSULTATION Name: SERAFIN BLANTON Room #: [facility] IN [facility]#: [id number] Admission: 03/05/17 Attend Phys: Conor Leija MD Discharge: Date of : 56 Report #: [id number] platelet count 131,000. Sputum shows normal donavon. Blood cultures are negative. Chest x-ray, cardiomegaly with vascular congestion, lower lobe atelectasis with possible pneumonitis. IMPRESSION AND PLAN: A 56-year-old underlying chronic obstructive pulmonary disease with exacerbation of such. She has basilar infiltrates concerning for bronchopneumonia. She just got out of advanced half-way unit following her hospitalization last month. Her previous MRSA screen was negative. Her previous check for viral pathogens was negative. I doubt we are dealing with atypical pathogens. I agree with the impaired coverage for nosocomial pathogens, but sputum culture remains negative for such and she has seemed to respond reasonably well to her current antibiotic program. I would therefore recommend MRSA screen. We will continue with ceftriaxone and corticosteroids. <ELECTRONICALLY SIGNED> By: Rafael Malone MD 03/09/17 2155 2106 0703 Rafael Malone MD /nt
--- NOTE | ~2017-03-05 | HC ---
[facility] [place] [address] CONSULTATION Name: CHRISSY BLANTON Room #: 240-P [facility] IN ..#: [id number] Admission: 03/05/17 Attend Phys: Conor Leija MD Discharge: Date of : 56 Report #: [id number] THIS REPORT FOR: //name// CC: Conor Ndiaye DO DATE OF SERVICE: 03/05/2017 PULMONARY CONSULTATION REFERRAL PHYSICIAN: Conor Leija MD REASON FOR REFERRAL: Dyspnea. HISTORY OF PRESENT ILLNESS: The patient is a 56-year-old white female who presents to the Emergency Room with dyspnea. A pulmonary consultation was requested. The patient has complex multiple medical problems along with severe pulmonary impairment. She is oxygen dependent on 6 liters of O2. Over the past year, the patient has had multiple hospitalizations. Her last hospitalization was in 01/28/2017. She presents here again in this occasion with progressive dyspnea. She states that she was home for couple of weeks. For the past 2 days, she has noticed increasing dyspnea. Otherwise, she denies any fever, night sweats or chills, chest pain or productive cough. History is limited at this time as the patient is on noninvasive positive pressure ventilation. Her chest x-ray performed on admission revealed mild right lower lobe infiltrates. PAST MEDICAL HISTORY: As mentioned above including severe COPD, baseline FEV1 of 0.5 liters or 24% predicted, ANNE with obesity hypoventilation syndrome, on home BiPAP at 18/10 cmH2O with 4 liters of O2, antiphospholipid antibody with history of multiple CVAs in the past, the patient had declined anticoagulation in the past, past echocardiogram also showed patent foramen ovale, hypertension, diabetes mellitus type 2, hyperlipidemia, gastroesophageal reflux disease, coronary artery disease, remote endocarditis, past echocardiogram in 2013 showed ejection fraction of 45%-50%, moderate LV dysfunction. PAST SURGICAL HISTORY: Status post carotid stent placement, facial reconstruction surgery, . ALLERGIES: To SULFA, which causes rash, TETRACYCLINE causes rash, DEXILANT [facility] [address] [place] [address] CONSULTATION Name: CHRISSY BLANTON Room #: [address] [place] [address] [place] [facility].#: [id number] Admission: 03/05/17 Attend Phys: Conor Leija MD Discharge: Date of : 56 Report #: [id number] causes nausea. HOME MEDICATIONS: Reviewed and is in MAR. FAMILY HISTORY: Remarkable for heart disease in the father who at the age of 57. Mother , cause unknown. SOCIAL HISTORY: She is . She lives with her son. She has smoked for most of her life until several years ago. She is on disability. She denies any alcohol use. MEDICAL DIRECTIVE: I believe she is a full code blue. REVIEW OF SYSTEMS: As mentioned above is notable for progressive generalized debility and weakness. Otherwise, 10-point system review negative. PHYSICAL EXAMINATION: GENERAL: She is awake, alert, in moderate respiratory distress. She is tolerating noninvasive positive pressure ventilation at this time. VITAL SIGNS: Temperature has not been reported, otherwise, pulse is 120, respiratory rate is 20, blood pressure 129/80 mmHg, saturation is 99%. HEENT: Normocephalic, atraumatic. NECK: Supple, without lymphadenopathy or thyromegaly. CHEST: Breath sounds are decreased bilaterally with mild expiratory wheezes. CARDIOVASCULAR: Heart sounds are distant. Normal S1, S2. There are no obvious murmurs or gallop. Pulses are 2+/4+ bilaterally. BREASTS: Exam deferred. ABDOMEN: Moderately obese, soft, nontender, no organomegaly or masses felt. GENITOURINARY: Deferred. RECTAL: Deferred. EXTREMITIES: No cyanosis, clubbing or edema. LABORATORY DATA: Chest x-ray as mentioned above showing mild right lower lobe infiltrates. Of note, patient's name on the x-ray performed on March 05 is erroneous, her name is spelled Raquel Helms, which is not the correct patient's name. The patient's name is spelled Chrissy Blanton. Arterial blood gas revealed pH 7.14, pCO2 of 89, pO2 of 87 on FIO2 of 60%. WBC 15,900; hemoglobin is 10.2; platelets are normal. No bandemia noted. Sodium 140, potassium 4.7, chloride 101, CO2 is 32, BUN is 16, creatinine is 1.2, glucose is 345. IMPRESSION: 1. Progressive dyspnea in this 56-year-old white female. Chest x-ray shows new right lower lobe infiltrates. Probable pneumonia. Nosocomial infection should be considered. 2. Acute on chronic hypercapnic hypoxic respiratory failure due to above. 3. Chronic obstructive pulmonary disease, severe impairment, oxygen dependent [address] [address] CONSULTATION Name: CHRISSY BLANTON Room #: 240-P [facility] IN M.R.#: [id number] Admission: 11/10/17 Attend Phys: Conor Leija MD Discharge: Date of : 56 Report #: [id number] at 4-6 liters with mild exacerbation. 4. Obesity hypoventilation syndrome/obstructive sleep apnea, on home BiPAP at 18/10 cmH2O with supplemental O2. 5. Antiphospholipid antibody syndrome with history of multiple cerebrovascular accidents, the patient had refused anticoagulation in the past. 6. History of patent foramen ovale. 7. Hypertension, essential. 8. Diabetes mellitus type 2. 9. Coronary artery disease with mild left ventricular dysfunction. 10. Pulmonary hypertension, past pulmonary pressure measured around 56 mmHg. This is related to chronic lung disease along with sleep apnea. 11. Obesity. 12. Frequent hospitalizations. Once again, this will be the patient's six hospitalizations within the past year. She would benefit from social service and case management involvement for possible intervention either home health visits or close monitoring etc. RECOMMENDATION: Would recommend antibiotic coverage to cover for nosocomial infections since the patient was recently hospitalized within the past 3 months, agree with corticosteroids, bronchodilators. Continue noninvasive positive pressure ventilation as needed. DVT and GI prophylaxis has been addressed. Thank you for this consultation. <ELECTRONICALLY SIGNED> By: Odell Ortiz MD 03/09/17 1413 1212 0136 Odell Ortiz MD /nt
--- NOTE | ~2017-03-05 | HC ---
[facility] [place] [address] CONSULTATION Name: SERAFIN BLANTON Room #: 204-P [facility].#: [id number] Admission: 03/05/17 Attend Phys: Conor Leija MD Discharge: 03/11/17 Date of : 56 Report #: [id number] THIS REPORT FOR: //name// CC: Conor Ndiaye DATE OF SERVICE: 03/10/2017 HISTORY OF PRESENT ILLNESS: The patient is a 56-year-old female with a history of O2 dependent COPD, admitted with increased shortness of breath. She was diagnosed with acute hypoxic respiratory failure, and noted to having a COPD exacerbation. She was diagnosed with pneumonia. She has anemia and thrombocytopenia. She has diabetes and chronic kidney disease. She has pulmonary hypertension. We are seeing her in rehabilitation medicine consultation. PAST MEDICAL HISTORY: Significant for COPD exertions, obesity, and diabetes mellitus. She has had multiple hospitalizations. HABITS: Former smoker, quit greater than a year ago. Alcohol use, no history of abuse noted. REVIEW OF SYSTEMS: Did not offer any current complaints of chest pain or shortness of breath, or abdominal discomfort at rest. She notes that she does get short of breath with activity. SOCIAL HISTORY: Lives in a house with her son. He works during the day. There is a daughter that is involved as well. She does not use any gait aids at home, but was using a front-wheeled walker in the community. PHYSICAL EXAMINATION: GENERAL: A 56-year-old obese white female in no obvious distress. VITAL SIGNS: Last recorded temperature is 98, pulse 88, respirations 17, blood pressure 166/96. Currently on 6 liters. NEUROLOGIC: Facies are symmetric. Functional range of motion of both upper extremities, strength is grade 4-/5. DTRs are trace to 1. Lower extremities, no focal calf swelling. Functional range of motion, strength is grade 4 to 4-/5. DTRs are trace to 1. ASSESSMENT: A 56-year-old white female with following problem list: 1. Pulmonary rehabilitation. 2. Acute hypoxic respiratory failure. 3. Chronic obstructive pulmonary disease exacerbation. 4. Pneumonia. 5. Thrombocytopenia. 6. Pulmonary hypertension. [address] [address] CONSULTATION Name: SERAFIN BLANTON Room #: 204-P [facility]#: [id number] Admission: 03/05/17 Attend Phys: Conor Leija MD Discharge: 03/11/17 Date of : 56 Report #: [id number] 7. Diabetes mellitus type 2. 8. Chronic kidney disease. 9. Exogenous obesity. 10. Premorbid O2 dependent chronic obstructive pulmonary disease at 6 liters. PLAN: Therapy evaluations are underway. We will be glad to assist regarding rehab therapy needs as the patient further stabilizes and moves out of the ICU. We will be glad to follow along with you. <ELECTRONICALLY SIGNED> By: Tigre Ray MD 03/11/17 1456 1237 2326 Tigre Ray MD /RONALDO
--- NOTE | ~2017-03-05 | CNG ---
[facility] [place] [address] CYTO-NONGYN REPORT PROCEDURE Name: CHRISSY BLANTON Room #: 204-P ADM IN M.R.#: [id number] Admission: 03/05/17 Date of : 56 Discharge: Report #: [id number] Path Case #: [id number] CYTOPATHOLOGY REPORT COLLECTION DATE: 03/09/2017 RECEIVED DATE: 03/10/2017 SUBMITTING PHYS: Dr. Umesh Fall OTHER PHYS: Cuco Tam Dr. CLINICAL HISTORY: COPD exacerbation, pneumonia, respiratory failure SPECIMEN(S) RECEIVED: A.Sputum Cytology * * * * * * * * * * * * FINAL DIAGNOSIS: A. Sputum Cytology: - No malignant cells identified. - Bronchial epithelial cells, alveolar macrophages, and squamous cells identified. PATHOLOGIST: Caleb Hunter M.D. REPORT ELECTRONICALLY SIGNED BY: Caleb Hunter M.D. DATE/TIME: 03/11/2017 11:13 * * * * * * * * * * * * GROSS PATHOLOGY: A. Sputum Cytology: The specimen is submitted unfixed, labeled "Chrissy Blanton". Received by the Cytology Department is two mL of thick cloudy brown fluid. One ThinPrep slide was prepared. (lg11.) TANK FARM GAUGER(S): LUÍS Gonzalez([facility]) INITIAL CPT CODE(S): A; 73474 Professional services performed by [facility] at [facility] [address], [place] [address] Technical services performed by [facility] at [address] [place] [address]., [address], [place] [address]. [facility] [address] [place] [address], [facility] [address] [place], [place] [id number] [place] [address] [place] [address] CYTO-NONGYN REPORT PROCEDURE Name: CHRISSY BLANTON Room #: 204-P ADM IN M.R.#: [id number] Admission: 03/05/17 Date of : 56 Discharge: Report #: [id number] Path Case #: [id number] PHONE: [phone] DIRECTOR: Leo Farah M.D. * * * END OF REPORT * * *
[~2017-03-05 05:21] MED LIST changes: +ENOXAPARIN40 MG/0.1 SUBQ; +SINGULAIR 10 MG10 M1 PO
[2017-03-05 05:57] LABS: ABG SAMPLE TYPE ARTERIAL; BE(vivo) -0.5 mmol/L (-2 to +3); HCO3 30.1 mmol/L (22.0-26.0); LACTATE 0.91 mmol/L (0.5-2.0); O2(CT) 14.3 mL/dL (15.0-23.0); O2Hb 92.6 % (92.0-98.0); PO2 87.3 mmHg (80.0-100.0); sO2 93.1 % (92.0-98.0); tCO2 32.9 mmol/L (24.0-30.0)
[2017-03-05 05:58] LABS: PCO2 89.5 mmHg (35.0-45.0); Pressure Support 6 cm H20; STICK SITE R.RADIAL; pH 7.145 (7.360-7.450)
[2017-03-05 05:59] LABS: HEMATOCRIT 32.6 % (37.0-47.0); HEMOGLOBIN 10.2 gm/dL (12.0-15.0); MCH 25.2 pg (26.0-34.0); MCHC 31.3 g/dL (28.0-37.0); MCV 80.5 fL (80.0-100.0); PLATELET COUNT 244 thou/uL (150-400); RBC 4.06 mil/uL (4.20-5.00); RDW 19.4 % (10.5-14.5); WBC 15.9 thou/uL (4.0-11.0)
[2017-03-05 06:05] LABS: CALCIUM 9.2 mg/dL (8.5-10.1); CREATININE 1.2 mg/dL (0.6-1.0); POTASSIUM 4.7 mmol/L (3.5-5.1)
[2017-03-05 06:20] LABS: MANUAL DIFF YES
[2017-03-05 06:43] LABS: ABG SAMPLE TYPE ARTERIAL; HCO3 34.8 mmol/L (22.0-26.0); LACTATE 0.89 mmol/L (0.5-2.0); O2(CT) 14.5 mL/dL (15.0-23.0); PO2 102.2 mmHg (80.0-100.0); sO2 95.6 % (92.0-98.0); tCO2 37.8 mmol/L (24.0-30.0)
[2017-03-05 06:44] LABS: PCO2 97.3 mmHg (35.0-45.0); STICK SITE L.RADIAL; pH 7.171 (7.360-7.450)
[2017-03-05 06:45] LABS: Pressure Support 12 cm H20
[2017-03-05 06:55] LABS: ABSOLUTE NEUTROPHILS 12.1 thou/uL (1.4-8.2); ATYPICAL LYMPHS 1 %; TOTAL CELL COUNT 100
[2017-03-05 06:56] LABS: ANISOCYTOSIS 2+; MICROCYTES 1+; POLYCHROMASIA OCCASIONAL
[2017-03-05 07:22] LABS: ABG SAMPLE TYPE ARTERIAL; BE(vivo) 4.6 mmol/L (-2 to +3); HCO3 34.8 mmol/L (22.0-26.0); LACTATE 0.88 mmol/L (0.5-2.0); O2Hb 94.7 % (92.0-98.0); PO2 99.9 mmHg (80.0-100.0); sO2 95.6 % (92.0-98.0); tCO2 37.7 mmol/L (24.0-30.0)
[2017-03-05 07:23] LABS: PCO2 92.9 mmHg (35.0-45.0); Pressure Support 14 cm H20; STICK SITE R.RADIAL; pH 7.192 (7.360-7.450)
[2017-03-06] VITALS (19 sets, daily range): BP systolic 113–156; BP diastolic 70–122
[2017-03-06 04:25] LABS: HEMOGLOBIN 8.6 gm/dL (12.0-15.0); MCH 25.6 pg (26.0-34.0); MCHC 31.8 g/dL (28.0-37.0); MCV 80.4 fL (80.0-100.0); RBC 3.36 mil/uL (4.20-5.00); RDW 19.7 % (10.5-14.5)
[2017-03-06 04:37] LABS: CALCIUM 8.7 mg/dL (8.5-10.1); CREATININE 1.2 mg/dL (0.6-1.0); POTASSIUM 4.7 mmol/L (3.5-5.1)
[2017-03-06 05:03] LABS: ABG SAMPLE TYPE ARTERIAL; BE(vivo) 6.3 mmol/L (-2 to +3); LACTATE 0.72 mmol/L (0.5-2.0); O2(CT) 12.6 mL/dL (15.0-23.0); O2Hb 94.3 % (92.0-98.0); PO2 86.9 mmHg (80.0-100.0); sO2 95.4 % (92.0-98.0); tCO2 36.1 mmol/L (24.0-30.0)
[2017-03-06 05:04] LABS: PCO2 69.7 mmHg (35.0-45.0); STICK SITE R.RADIAL; pH 7.306 (7.360-7.450)
[2017-03-07] VITALS (23 sets, daily range): BP systolic 132–167; BP diastolic 75–143
[2017-03-07 05:44] LABS: HEMATOCRIT 27.8 % (37.0-47.0); HEMOGLOBIN 8.8 gm/dL (12.0-15.0); MCH 25.6 pg (26.0-34.0); MCHC 31.9 g/dL (28.0-37.0); MCV 80.4 fL (80.0-100.0); RBC 3.45 mil/uL (4.20-5.00); RDW 19.8 % (10.5-14.5); WBC 8.1 thou/uL (4.0-11.0)
[2017-03-07 06:00] LABS: ALBUMIN 3.1 g/dL (3.4-5.0); CALCIUM 9.2 mg/dL (8.5-10.1); CREATININE 1.2 mg/dL (0.6-1.0); POTASSIUM 4.7 mmol/L (3.5-5.1); TOTAL BILIRUBIN 0.3 mg/dL (<0.1-1.0)
[2017-03-08] VITALS (26 sets, daily range): BP systolic 128–168; BP diastolic 67–152
[2017-03-08 05:40] LABS: HEMATOCRIT 27.7 % (37.0-47.0); HEMOGLOBIN 8.7 gm/dL (12.0-15.0); MCH 25.1 pg (26.0-34.0); MCHC 31.3 g/dL (28.0-37.0); MCV 80.4 fL (80.0-100.0); RBC 3.44 mil/uL (4.20-5.00); RDW 20.2 % (10.5-14.5); WBC 7.4 thou/uL (4.0-11.0)
[2017-03-08 05:56] LABS: ALBUMIN 2.9 g/dL (3.4-5.0); CALCIUM 8.9 mg/dL (8.5-10.1); CREATININE 1.3 mg/dL (0.6-1.0); POTASSIUM 4.6 mmol/L (3.5-5.1); TOTAL BILIRUBIN 0.3 mg/dL (<0.1-1.0); TOTAL PROTEIN 6.6 g/dL (6.4-8.2)
[2017-03-08 08:45] LABS: ABG SAMPLE TYPE ARTERIAL; HCO3 37.2 mmol/L (22.0-26.0); LACTATE 0.72 mmol/L (0.5-2.0); O2(CT) 14.3 mL/dL (15.0-23.0); O2Hb 95.2 % (92.0-98.0); sO2 96.2 % (92.0-98.0); tCO2 39.5 mmol/L (24.0-30.0)
[2017-03-08 08:46] LABS: PCO2 73.9 mmHg (35.0-45.0)
[2017-03-08 08:47] LABS: STICK SITE L.RADIAL
[2017-03-09] VITALS (22 sets, daily range): BP systolic 131–178; BP diastolic 65–110
[2017-03-09 12:47] LABS: ABG SAMPLE TYPE ARTERIAL; BE(vivo) 9.4 mmol/L (-2 to +3); HCO3 36.5 mmol/L (22.0-26.0); LACTATE 1.12 mmol/L (0.5-2.0); O2(CT) 12.5 mL/dL (15.0-23.0); O2Hb 87.9 % (92.0-98.0); PCO2 64.7 mmHg (35.0-45.0); PO2 57.3 mmHg (80.0-100.0); pH 7.369 (7.360-7.450); tCO2 38.5 mmol/L (24.0-30.0)
[2017-03-09 12:48] LABS: STICK SITE L.RADIAL
[2017-03-10] VITALS (19 sets, daily range): BP systolic 136–167; BP diastolic 67–116
[2017-03-11 00:45] VITALS: BP 154/73
[2017-03-11 02:59] LABS: HEMATOCRIT 28.2 % (37.0-47.0); HEMOGLOBIN 8.9 gm/dL (12.0-15.0); MCH 25.4 pg (26.0-34.0); MCHC 31.5 g/dL (28.0-37.0); MCV 80.6 fL (80.0-100.0); PLATELET COUNT 125 thou/uL (150-400); WBC 7.1 thou/uL (4.0-11.0)
[2017-03-11 03:05] LABS: MANUAL DIFF YES
[2017-03-11 03:09] LABS: ANION GAP < 0 mmol/L (7-16); BUN 33 mg/dL (7-18); CALCIUM 9.2 mg/dL (8.5-10.1); CHLORIDE 98 mmol/L (98-107); CO2 43 mmol/L (21-32); CREATININE 1.1 mg/dL (0.6-1.0); GLUCOSE 325 mg/dL (74-106); MAGNESIUM 1.9 mg/dL (1.8-2.4); POTASSIUM 4.9 mmol/L (3.5-5.1); SODIUM 139 mmol/L (136-145)
[2017-03-11 04:30] VITALS: BP 143/67
[2017-03-11 05:10] LABS: ABSOLUTE NEUTROPHILS 5.9 thou/uL (1.4-8.2); ANISOCYTOSIS 2+; ATYPICAL LYMPHS 1 %; MACROCYTES 1+; NUCLEATED RBCS 1 /100WBC; POLYCHROMASIA OCCASIONAL; TOTAL CELL COUNT 100
[2017-03-11 08:00] VITALS: BP 177/100
[2017-03-11] MEDS ORDERED: DUONEB 2.5-0.5 M3 ML INH (13:36)
[2017-03-11] MEDS ORDERED: SOLU-MEDRO125 MG/24 IV PUSH (13:36)
== END 2017-03-11 14:30 | DRG 177 ==
LOC: ER 05:21 → 2N 07:40 → EROBS 07:40 → ICU 07:40 → 2N 03-10 18:34
PROVIDERS: Emergency Medicine; Hospitalist; Internal Medicine Pulmonary Disease
PROC: 5A09557 Assistance with Respiratory Ventilation, Greater than 96 Consecutive Hours, Continuous Positive Airway Pressure (ICD-10-PCS; principal; 2017-03-05)
DX: J69.0 Pneumonitis due to inhalation of food and vomit (principal); J96.21 Acute and chronic respiratory failure with hypoxia; J96.22 Acute and chronic respiratory failure with hypercapnia; J44.1 Chronic obstructive pulmonary disease with (acute) exacerbation; D68.61 Antiphospholipid syndrome; Z68.41 Body mass index [BMI] 40.0-44.9, adult; I12.0 Hypertensive chronic kidney disease with stage 5 chronic kidney disease or end stage renal disease; G47.33 Obstructive sleep apnea (adult) (pediatric); E78.5 Hyperlipidemia, unspecified; K21.9 Gastro-esophageal reflux disease without esophagitis; I25.10 Atherosclerotic heart disease of native coronary artery without angina pectoris; I27.20 Pulmonary hypertension, unspecified; D69.6 Thrombocytopenia, unspecified; E66.09 Other obesity due to excess calories; N18.3 Chronic kidney disease, stage 3 (moderate); E03.9 Hypothyroidism, unspecified; D64.9 Anemia, unspecified; Z79.899 Other long term (current) drug therapy; Z90.49 Acquired absence of other specified parts of digestive tract; Z86.73 Personal history of transient ischemic attack (TIA), and cerebral infarction without residual deficits; Z88.1 Allergy status to other antibiotic agents; Z88.2 Allergy status to sulfonamides; Z82.49 Family history of ischemic heart disease and other diseases of the circulatory system; Z87.891 Personal history of nicotine dependence; Z99.81 Dependence on supplemental oxygen; Z95.5 Presence of coronary angioplasty implant and graft; E11.22 Type 2 diabetes mellitus with diabetic chronic kidney disease
CPT/HCPCS: 10078; 10081; 10203; 27001

== ENCOUNTER 2017-03-11 11:58 | Inpatient (IN) | payer OTHER ==
[~2017-03-11] VITALS: Ht 160 cm; Wt 97.2 kg
--- NOTE | ~2017-03-11 | H ---
[facility] [place] [address] HISTORY AND PHYSICAL Name: SERAFIN BLANTON Room #: 515-P ADM IN ..#: [id number] Admission: 03/11/17 Attend Phys: Tigre Ray MD Discharge: Date of : 56 Report #: [id number] THIS REPORT FOR: //name// CC: Addis Ray DATE OF SERVICE: 03/11/2017 HISTORY AND PHYSICAL/POST-ADMISSION PHYSICIAN EVALUATION HISTORY OF PRESENT ILLNESS: The patient is a 56-year-old white female with history of O2 dependent COPD, originally admitted with increased shortness of breath. She was diagnosed with acute hypoxic respiratory failure, was noted to have COPD exacerbation. She was diagnosed with pneumonia. She has anemia and thrombocytopenia. She has diabetes and chronic kidney disease. She also has pulmonary hypertension. She was noted to have medical complexity with generalized debilitation and the need for pulmonary rehabilitation and has been admitted for acute in-hospital inpatient rehabilitation. PAST MEDICAL HISTORY: Includes COPD exacerbation, obesity, diabetes mellitus. She has had multiple hospitalizations. MEDICATIONS: Please see the full medication listing. HABITS: Former smoker, quit greater than a year ago. Alcohol use, no history of abuse noted. SOCIAL HISTORY: Lives in a house with her son. He works during the day. There is a daughter that is involved as well. She does not use any gait aids at home, but was using a front-wheeled walker in the community. REVIEW OF SYSTEMS: No current complaints of chest pain, shortness of breath, abdominal discomfort. She has been getting short of breath with activity. PHYSICAL EXAMINATION: GENERAL: A 56-year-old female in no obvious distress. The patient is an obese white female, in no obvious distress. VITAL SIGNS: Last recorded temperature is 97.8, pulse 90, respirations 18, blood pressure 161/89. She utilizes BiPAP at night. CHEST: Some diffuse decreased breath sounds throughout. CARDIOVASCULAR: Sounded regular rate and rhythm. ABDOMEN: Obese, bowel sounds positive, nontender. GENITOURINARY AND RECTAL: Deferred. NEUROLOGIC: Her facies are symmetric. She has functional range of motion to both upper extremities with strength grade 4-/5. DTRs are trace to 1. Lower extremities, no focal calf swelling. Functional range of motion with strength [address] [address] HISTORY AND PHYSICAL Name: SERAFIN BLANTON Room #: 515-P [facility] IN [facility].#: [id number] Admission: 03/11/17 Attend Phys: Tigre Ray MD Discharge: Date of : 56 Report #: [id number] grade 4 to 4-/5. DTRs are trace to 1. Transfers are standby assistance with gait needing contact guard assistance. ASSESSMENT: A 56-year-old white female with the following problem list: 1. Pulmonary rehabilitation. 2. Acute hypoxic respiratory failure. 3. Chronic obstructive pulmonary disease exacerbation. 4. Pneumonia. 5. Thrombocytopenia. 6. Pulmonary hypertension. 7. Diabetes mellitus type 2. 8. Chronic kidney disease. 9. Exogenous obesity. 10. Premorbid O2 dependent chronic obstructive pulmonary disease at 6 liters. PLAN: The patient is admitted for acute in-hospital inpatient rehabilitation. From a post-admission physician evaluation perspective, there are no relevant changes since the preadmission screening. Please see the above review of prior and current medical and functional conditions and comorbidities. Please see the patient's previous and current functional status. As far as risk of complication, she has the multiple medical comorbidities as noted above. The initial plan of care involves the interdisciplinary acute inpatient rehabilitation program with the goal of maximizing the patient's functional independence, so she can hopefully return back to her prior living situation. Measurable functional goals would be for her to become modified independent at the walker level with mobility and ADLs and to improve as far as overall endurance and strength. Prognosis is reasonably good with estimated length of stay probably 10 days to 2 weeks. Potential barriers would include her multiple medical comorbidities and decreased functional status. The patient's diagnosis is appropriate for an acute in-hospital inpatient rehabilitation stay. She meets medical necessity criteria and we will have the multiple customer relations consultant physicians continue to follow. She does have the tolerance for therapies and has appropriate discharge goals back to the home setting. By: 0824 0849 Tigre Ray MD /[facility]
--- NOTE | ~2017-03-11 | HC ---
[facility] [place] [address] CONSULTATION Name: SERAFIN BLANTON Room #: 510-P [facility] IN ..#: [id number] Admission: 03/11/17 Attend Phys: Tigre Ray MD Discharge: 03/19/17 Date of : 56 Report #: [id number] THIS REPORT FOR: //name// CC: Addis Ray DATE OF SERVICE: 03/13/2017 TYPE OF REPORT: Neurobehavioral status exam. AGE: 56. ATTENDING PHYSICIAN: Tigre Ray M.D. RESEARCH PHYSICIST: James Bar, Ph.D. CLINICAL PRESENTATION: The patient is a 56-year-old female admitted to the rehabilitation unit at [facility] for a comprehensive inpatient rehabilitation program to improve functional mobility and activities of daily living and self-care secondary to impairment from acute hypoxic respiratory failure. Her diagnoses include chronic obstructive pulmonary disease exacerbation, pneumonia, thrombocytopenia, pulmonary hypertension, diabetes mellitus type 2, chronic kidney disease, exogenous obesity and premorbid O2 dependent COPD at 6 liters. A complete description of her medical condition and history can be found in her medical record. Neuropsychological consultation was requested to provide assistance in the assessment of cognitive and emotional status and to provide recommendations and services. Prior to this most recent admission, she was living independently with her son. The patient accurately described events surrounding her hospitalization. However, she does have brief periods of amnesia surrounding the early events of her hospitalization. She has 4 children. The patient is a high school graduate. 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 TECHNIQUES UTILIZED: Clinical interview, review of medical records, staff consultation and behavioral observation, mini mental status exam 2 standard version, clock drawing and category and letter fluency assessment. EXAMINATION FINDINGS: The patient was alert and cooperative with the assessment. She accurately described events surrounding her admission. There is no evidence of aphasia. Her thoughts are logical and goal oriented. There is no evidence of thought disorder. She does not report auditory or visual hallucinations. Her primary symptoms are described as anxiety, fatigue and [facility] [address] [place] [address] CONSULTATION Name: SERAFIN BLANTON Room #: [facility] IN [facility].#: [id number] Admission: 03/11/17 Attend Phys: Tigre Ray MD Discharge: 03/19/17 Date of : 56 Report #: [id number] feeling "foggy." Difficulty with concentration is suggested. She does not report difficulty with memory. Problems with word finding since previous strokes are described. She reports having had cerebrovascular accidents in the year 1999. She reports those as having had an effect on verbal fluency. Her performance on the MMSE 2 brief version is within normal limits with a raw score of 14 of 16. The patient was 3/3 for initial registration, 5/5 for orientation to time, 4/[address] and 2/3 for immediate recall of 3 items after a brief time delay and distraction. She had more difficulty with the standard version of the MMSE 2 with a raw score of 25 and a T-score of 39. She was 3/5 for serial 7's. The patient also had difficulty in copying a simple geometric design. Naming was within normal limits. Category fluency was in the dvjj-ma-rcqzifmd range of impairment with a raw score 28, T-score of 30 and percentile rank of 2. Difficulty with category fluency can suggest impairment and executive functioning. DIAGNOSTIC IMPRESSION: Mild neurocognitive disorder, unspecified, without behavior disorder Unspecified anxiety disorder. RECOMMENDATIONS: The patient will benefit from assistance in development of compensatory strategies for variability in cognition. She was independent with managing medication and nutrition. Additional assistance is indicated to help her structure a better method of managing medication. The use of relaxation techniques and stress management strategies may also help in the management of anxiety. Thank you very much for allowing me to provide the consultation on this patient. <ELECTRONICALLY SIGNED> By: James Bar, PhD 03/22/17 1854 1609 0450 James Bar, PhD /nt
[2017-03-11 11:10] VITALS: BP 170/100
[2017-03-11] MEDS ORDERED: DUONEB 2.5-0.5 M3 ML INH (13:36)
[2017-03-11] MEDS ORDERED: SOLU-MEDRO125 MG/24 IV PUSH (13:36)
[2017-03-11 15:25] VITALS: BP 148/74
[2017-03-11 19:59] VITALS: BP 161/89
[2017-03-12 06:47] LABS: HEMATOCRIT 28.7 % (37.0-47.0); HEMOGLOBIN 9.3 gm/dL (12.0-15.0); MCH 25.6 pg (26.0-34.0); MCHC 32.3 g/dL (28.0-37.0); MCV 79.5 fL (80.0-100.0); RBC 3.62 mil/uL (4.20-5.00); RDW 19.9 % (10.5-14.5); WBC 7.7 thou/uL (4.0-11.0)
[2017-03-12 06:54] LABS: CALCIUM 9.2 mg/dL (8.5-10.1); POTASSIUM 4.4 mmol/L (3.5-5.1)
[2017-03-12 08:01] VITALS: BP 162/94
[2017-03-12 20:01] VITALS: BP 157/100
[2017-03-12 21:40] VITALS: BP 147/94
[2017-03-13 07:30] VITALS: BP 169/94
[2017-03-13 19:41] VITALS: BP 141/68
[2017-03-14 19:45] VITALS: BP 180/90
[2017-03-14 20:03] VITALS: BP 180/90
[2017-03-15 05:15] VITALS: BP 180/100
[2017-03-15 08:00] VITALS: BP 143/73
[2017-03-15 20:00] VITALS: BP 164/84
[2017-03-16 05:20] LABS: HEMATOCRIT 31.2 % (37.0-47.0); HEMOGLOBIN 9.8 gm/dL (12.0-15.0); MCH 24.9 pg (26.0-34.0); MCHC 31.4 g/dL (28.0-37.0); MCV 79.3 fL (80.0-100.0); PLATELET COUNT 158 thou/uL (150-400); RBC 3.93 mil/uL (4.20-5.00); RDW 19.5 % (10.5-14.5); WBC 9.8 thou/uL (4.0-11.0)
[2017-03-16 05:21] LABS: MANUAL DIFF YES
[2017-03-16 05:34] LABS: CREATININE 1.2 mg/dL (0.6-1.0); MAGNESIUM 2.1 mg/dL (1.8-2.4); POTASSIUM 4.3 mmol/L (3.5-5.1); TOTAL BILIRUBIN 0.3 mg/dL (<0.1-1.0); TOTAL PROTEIN 6.2 g/dL (6.4-8.2)
[2017-03-16 07:18] LABS: ABSOLUTE NEUTROPHILS 8.9 thou/uL (1.4-8.2); PLATELET ESTIMATE NORMAL; TOTAL CELL COUNT 100
[2017-03-16 07:20] LABS: ANISOCYTOSIS 1+; HYPOCHROMASIA 1+; MICROCYTES 1+
[2017-03-16 07:30] VITALS: BP 147/88
[2017-03-16 20:17] VITALS: BP 150/78
[2017-03-17 08:50] VITALS: BP 140/84
[2017-03-17 15:50] VITALS: BP 140/84
[2017-03-17 20:06] VITALS: BP 152/75
[2017-03-18 08:34] VITALS: BP 174/89
[2017-03-18 19:30] VITALS: BP 134/74
[2017-03-19 06:41] LABS: HEMATOCRIT 30.1 % (37.0-47.0); HEMOGLOBIN 9.7 gm/dL (12.0-15.0); MCH 25.4 pg (26.0-34.0); MCHC 32.1 g/dL (28.0-37.0); MCV 78.9 fL (80.0-100.0); PLATELET COUNT 153 thou/uL (150-400); RBC 3.82 mil/uL (4.20-5.00); RDW 19.3 % (10.5-14.5); WBC 8.8 thou/uL (4.0-11.0)
[2017-03-19 06:47] LABS: MANUAL DIFF YES
[2017-03-19 06:52] LABS: CALCIUM 8.8 mg/dL (8.5-10.1); CREATININE 1.1 mg/dL (0.6-1.0); MAGNESIUM 1.9 mg/dL (1.8-2.4); POTASSIUM 4.2 mmol/L (3.5-5.1)
[2017-03-19 07:09] LABS: ABSOLUTE NEUTROPHILS 8.1 thou/uL (1.4-8.2); ANISOCYTOSIS 1+; PLATELET ESTIMATE NORMAL; TOTAL CELL COUNT 100
[2017-03-19 08:00] VITALS: BP 150/76
[2017-03-19] MEDS ORDERED: LANTUS SUBQ (09:44)
[2017-03-19 11:33] VITALS: BP 140/84
[2017-03-19 13:42] VITALS: BP 140/84
[2017-03-19] MEDS ORDERED: PREDNISONE 10 M10 MG (14:03)
[2017-03-19] MEDS ORDERED: CEFDINIR300 MG PO (14:04)
== END 2017-03-19 15:15 | disposition home health service (06) | DRG 947 ==
PROVIDERS: Nurse Practitioner; Physical Medicine & Rehabilitation
PROC: 5A09357 Assistance with Respiratory Ventilation, Less than 24 Consecutive Hours, Continuous Positive Airway Pressure (ICD-10-PCS; principal; 2017-03-15)
PROC: 5A09457 Assistance with Respiratory Ventilation, 24-96 Consecutive Hours, Continuous Positive Airway Pressure (ICD-10-PCS; 2017-03-18)
DX: R53.81 Other malaise (principal); J96.21 Acute and chronic respiratory failure with hypoxia; J18.9 Pneumonia, unspecified organism; J96.22 Acute and chronic respiratory failure with hypercapnia; J44.1 Chronic obstructive pulmonary disease with (acute) exacerbation; J44.0 Chronic obstructive pulmonary disease with (acute) lower respiratory infection; I13.0 Hypertensive heart and chronic kidney disease with heart failure and stage 1 through stage 4 chronic kidney disease, or unspecified chronic kidney disease; I27.20 Pulmonary hypertension, unspecified; G31.84 Mild cognitive impairment of uncertain or unknown etiology; F41.9 Anxiety disorder, unspecified; E11.22 Type 2 diabetes mellitus with diabetic chronic kidney disease; E66.09 Other obesity due to excess calories; D69.6 Thrombocytopenia, unspecified; D64.9 Anemia, unspecified; E03.9 Hypothyroidism, unspecified; N18.3 Chronic kidney disease, stage 3 (moderate); I50.9 Heart failure, unspecified; L30.9 Dermatitis, unspecified; L40.9 Psoriasis, unspecified; Z68.38 Body mass index [BMI] 38.0-38.9, adult; Z88.2 Allergy status to sulfonamides; Z88.1 Allergy status to other antibiotic agents; Z90.49 Acquired absence of other specified parts of digestive tract
CPT/HCPCS: 10112

== ENCOUNTER 2017-03-29 18:21 | Emergency (ER) | payer OTHER ==
[~2017-03-29] VITALS: Ht 160 cm; Wt 93.9 kg
[~2017-03-29 18:21] MED LIST changes: +DUONEB 2.5-0.5 M3 ML INH; +LANTUS SUBQ; +SOLU-MEDRO125 MG/24 IV PUSH
[2017-03-29 18:59] LABS: HEMATOCRIT 37.1 % (37.0-47.0); HEMOGLOBIN 11.7 gm/dL (12.0-15.0); MCH 25.1 pg (26.0-34.0); MCHC 31.6 g/dL (28.0-37.0); MCV 79.4 fL (80.0-100.0); RBC 4.67 mil/uL (4.20-5.00); RDW 19.4 % (10.5-14.5); WBC 9.8 thou/uL (4.0-11.0)
[2017-03-29 19:09] LABS: CALCIUM 9.8 mg/dL (8.5-10.1); CREATININE 1.2 mg/dL (0.6-1.0); POTASSIUM 4.4 mmol/L (3.5-5.1)
== END 2017-03-29 20:22 | disposition home or self-care (01) ==
LOC: ER 18:21
PROVIDERS: Emergency Medicine
DX: J44.1 Chronic obstructive pulmonary disease with (acute) exacerbation (principal); F41.9 Anxiety disorder, unspecified; E11.22 Type 2 diabetes mellitus with diabetic chronic kidney disease; I12.9 Hypertensive chronic kidney disease with stage 1 through stage 4 chronic kidney disease, or unspecified chronic kidney disease; N18.9 Chronic kidney disease, unspecified; Z79.4 Long term (current) use of insulin; Z86.2 Personal history of diseases of the blood and blood-forming organs and certain disorders involving the immune mechanism; Z86.14 Personal history of Methicillin resistant Staphylococcus aureus infection; Z86.73 Personal history of transient ischemic attack (TIA), and cerebral infarction without residual deficits; Z98.890 Other specified postprocedural states; Z88.2 Allergy status to sulfonamides; Z88.1 Allergy status to other antibiotic agents; Z87.891 Personal history of nicotine dependence

== ENCOUNTER 2017-04-22 01:13 | Inpatient (IN) | payer OTHER ==
[2017-04-22] VITALS (26 sets, daily range): BP systolic 96–183; BP diastolic 58–95
[~2017-04-22] VITALS: Ht 160 cm; Wt 95.8 kg
--- NOTE | ~2017-04-22 | HC ---
[facility] [place] [address] CONSULTATION Name: SERAFIN BLANTON Room #: 251-P [facility] IN ..#: [id number] Admission: 04/22/17 Attend Phys: Conor Leija MD Discharge: Date of : 56 Report #: [id number] THIS REPORT FOR: //name// CC: Conor Ndiaye DATE OF SERVICE: 04/24/2017 INFECTIOUS DISEASE CONSULTATION ATTENDING PHYSICIAN: Dr. Leija REASON FOR EVALUATION: Severe pneumonitis complicated by respiratory failure. HISTORY OF PRESENT ILLNESS: Chart reviewed, the patient examined. This is a 56-year-old woman with a long-standing COPD who was hospitalized a number of times in several months, who was admitted through the Emergency Room on the with complaints of progressive shortness of breath that started several hours prior. In spite of efforts, she continued to worsen. She was admitted to the floor; however, while there, was found to have an increasing respiratory distress and at one point became unresponsive. She was emergently intubated. She is now currently in Intensive Care Unit, did note thick greenish sputum at the time. She was actually hypothermic, started on broad-spectrum therapy with piperacillin, tazobactam as well as vancomycin. She is sedated on the vent at this point. ALLERGIES: SULFA AND TETRACYCLINE. CURRENT MEDICATIONS: Include noted above ____, methylprednisolone, propofol, fentanyl, insulin, enoxaparin, furosemide, ranolazine, isosorbide mononitrate, metoprolol, linagliptin, guaifenesin, loratadine, omeprazole, levothyroxine. PAST MEDICAL HISTORY: As described above, O2 requiring COPD, has known vasculopathy with coronary artery disease, previous angioplasty and stenting, diabetes mellitus type 2, hypothyroidism, peripheral vascular disease, cholecystectomy, tonsillectomy. SOCIAL HISTORY: Former smoker. No ethanol. FAMILY HISTORY: Noncontributory. REVIEW OF SYSTEMS: Not obtainable. PHYSICAL EXAMINATION: VITAL SIGNS: Temperature 97.4, pulse 138, respirations 24, blood pressure 186/146. [facility] [address] [place] [address] CONSULTATION Name: SERAFIN BLANTON Room #: 251-P [facility] IN ..#: [id number] Admission: 04/22/17 Attend Phys: Conor Leija MD Discharge: Date of : 56 Report #: [id number] GENERAL: She appears chronically ill, undernourished. She is intubated. She is supine, ET as well as OG tube in place. LUNGS: Scattered coarse breath sounds, somewhat diminished. HEART: Regular. She is tachycardic. SKIN: Warm. ABDOMEN: Soft, nontender. No peritoneal signs. GENITOURINARY AND RECTAL: Deferred. LABORATORY DATA: Initial ABG: The pH 7.293, pCO2 of 84.2, pO2 of 88.5. Lactate of 1.33. Post-intubation, pH 7.100, pCO2 of 106.3, pO2 of 396.3, lactate of 1.76. CBC initially white count 15.3, H and H 10.9 and 33.9, platelets of 245. ProBNP of 4101. Electrolytes: Sodium 136, potassium 4.4, chloride 94, bicarb is 39, BUN and creatinine 14 and 1.3, glucose of 290. Estimated GFR of 42. Chest x-ray showed cardiomegaly, increased vascular congestion, lower lobe atelectasis, possible left lower lobe pneumonia. Troponin elevated at 9.011. Liver functions: AST of 40, ALT of 36, albumin of 3.2, total protein is 7.4. Blood culture sterile thus far from admission. ASSESSMENT: Pneumonitis in the setting of respiratory failure, marked hypercarbia, certainly evidence of severe underlying lung disease. Agree with broad-spectrum empiric therapy, certainly a risk for more resistant organisms due to multiple hospitalizations in the recent past. We will await those results. Urine culture is pending, attempt to wean off support as allowed. Overall, prognosis appears quite guarded. <ELECTRONICALLY SIGNED> By: César Payton MD 04/25/17 0746 1729 0605 César Payton MD /nt
--- NOTE | ~2017-04-22 | 2DMMODE ---
[facility] [address] [place] [address] 2 D/M-MODE ECHOCARDIOGRAM Name: HARVINDERSERAFIN S Room #: 247-P [facility] IN ..#: [id number] Admission: 04/22/17 Attend Phys: Manish Prabhakar, Discharge: Date of : 56 Date of Service: 04/22/17 1235 Report #: [id number] THIS REPORT FOR: //name// APPROVED REPORT Study performed: 04/22/2017 11:36:07 EXAM: Comprehensive 2D, Doppler, and color-flow Echocardiogram Patient Location: ICU Room #: [facility] Status: routine BSA: 1.97 HR: 105 bpm BP: 121/95 mmHg Other Information Study Quality: Adequate Indications COPD Dyspnea CAD 2D Dimensions RVDd: 34.73 mm LVEF(%): 35.18 (>50%) IVSd: 11.77 (7-11mm) LVOT Diam: 20.92 (18-24mm) LVDd: 55.26 mm PWd: 11.87 (7-11mm) Ascending Ao: 34.41 (22-36mm) LVDs: 45.85 (25-40mm) Aortic Root: 29.05 mm IVC: 28.00 mm Pino's LVEF: 35.18 % Volumes Left Atrial Volume (Systole) Single Plane 4CH: 50.27 mL Single Plane 2CH: 93.81 mL LA ESV Index: 39.00 mL/m2 Aortic Valve AoV Peak Nitin.: 1.73 m/s AO Peak Gr.: 12.02 mmHg LVOT Max P.23 mmHg LVOT Max V: 0.90 m/s SONNY Vmax: 1.78 cm2 AI Vmax: 3.40 m/s AI Armstrong: 1.47 m/s2 AI PHT: 670.56 ms [facility] [place] [address] 2 D/M-MODE ECHOCARDIOGRAM Name: SERAFIN BLANTON Room #: 247-P [facility] IN ..#: [id number] Admission: 04/22/17 Attend Phys: Manish Prabhakar, Discharge: Date of : 56 Date of Service: 04/22/17 1235 Report #: [id number] Pulmonary Valve PV Peak Nitin.: 0.94 m/s PV Peak Gr.: 3.53 mmHg Left Ventricle Left ventricle is at the upper limits of normal. Mild concentric left ventricular hypertrophy. Left ventricular ejection fraction is moderate to severely decreased. LVEF is 30-35%. This study is not technically sufficient to allow evaluation of the LV diastolic function. Right Ventricle The right ventricle is normal size. The right ventricular systolic function is normal. Atria Left atrium is dilated. The right atrium size is normal. Aortic Valve The aortic valve is normal in structure. Aortic valve is calcified. Trace aortic regurgitation. There is no aortic valvular stenosis. Mitral Valve The mitral valve is normal in structure. Trace mitral regurgitation. No evidence of mitral valve stenosis. Tricuspid Valve The tricuspid valve is normal in structure. There is no tricuspid valve regurgitation noted. Pulmonic Valve The pulmonary valve is normal in structure. There is no pulmonic valvular regurgitation. Great Vessels The aortic root is normal in size. The inferior vena cava is dilated with no inspiratory collapse. Pericardium There is no pericardial effusion. <Conclusion> Left ventricle is at the upper limits of normal. Mild concentric left ventricular hypertrophy. Left ventricular ejection fraction is moderate to severely [facility] [address] [place] [address] 2 D/M-MODE ECHOCARDIOGRAM Name: SERAFIN BLANTON Room #: 247-P [facility] IN ..#: [id number] Admission: 04/22/17 Attend Phys: Manish Prabhakar, Discharge: Date of : 56 Date of Service: 04/22/17 1235 Report #: [id number] decreased. LVEF is 30-35%. This study is not technically sufficient to allow evaluation of the LV diastolic function. The right ventricle is normal size. Left atrium is dilated. The aortic valve is normal in structure. Aortic valve is calcified. There is no aortic valvular stenosis. Trace mitral regurgitation. There is no tricuspid valve regurgitation noted. There is no pericardial effusion. <ELECTRONICALLY SIGNED> By: Trevor Loza MD, FACC 04/22/17 1235 1235 1235 Trevor Loza MD, FAC /INF
--- NOTE | ~2017-04-22 | HC ---
[facility] [place] [address] CONSULTATION Name: SERAFIN BLANTON Room #: 355-P [facility] IN ..#: [id number] Admission: 04/22/17 Attend Phys: Conor Leija MD Discharge: Date of : 56 Report #: [id number] THIS REPORT FOR: //name// CC: Addis Prabhakar REFERRAL PHYSICIAN: Manish Prabhakar MD REASON FOR REFERRAL: Acute respiratory distress. HISTORY OF PRESENT ILLNESS: The patient is a 56-year-old white female with known COPD who presents to the emergency room with progressive dyspnea that started 7 hours prior to presentation. A pulmonary consultation was requested. This is one of many hospitalizations for this patient. She was last hospitalized in February for COPD exacerbation. She is followed longitudinally by Dr. Fall. She has known severe COPD, she is oxygen dependent at 6 liters of O2. Over the past year, she has had at least 9 hospitalizations for COPD exacerbation. She is currently not able to provide adequate history as she is on BiPAP. She was in her usual state until 7 hours prior to presentation she started to notice increasing dyspnea, cough productive of sputum. PAST MEDICAL HISTORY: As mentioned above, COPD, severe impairment, oxygen dependent of 4-6 liters, BiPAP during sleep, ANNE with obesity hypoventilation syndrome, BiPAP at 18/10 cm H2O, 4 liters of O2, antiphospholipid antibody, multiple CVAs in the past, the patient has declined anticoagulation, patent foramen ovale, hypertension, diabetes mellitus type 2, hyperlipidemia, gastroesophageal reflux disease, coronary artery disease, past history of endocarditis, most recent echocardiogram showed an EF of 45-50% in 2014 with moderate LV dysfunction. PAST SURGICAL HISTORY: Include carotid artery stent placement, facial reconstruction, and . ALLERGIES: To SULFA, which causes rash; TETRACYCLINE causes rash, and DEXILANT causes nausea. HOME MEDICATIONS: Reviewed in the MAR. FAMILY HISTORY: Notable for heart disease in the father who at the age of 57. Mother , cause unknown. SOCIAL HISTORY: She is , lives with her son. She has smoked most of her life until a few years ago. She is on disability. There is no history of [facility] [address] [place] [address] CONSULTATION Name: SERAFIN BLANTON Room #: 355-[facility] IN [facility].#: [id number] Admission: 04/22/17 Attend Phys: Conor Leija MD Discharge: Date of : 56 Report #: [id number] tobacco use. MEDICAL DIRECTIVE: She is a full code. REVIEW OF SYSTEMS: As mentioned above, otherwise 10-point system review negative. PHYSICAL EXAMINATION: GENERAL: She is awake, alert, in some mild distress. She is tolerating BiPAP. VITAL SIGNS: Temperature is 97 degrees Fahrenheit, temperature maximum was 101.0 degrees Fahrenheit, pulse is 120, respiratory rate is 24, blood pressure 120/95 mmHg, and saturation 93%. HEENT: Normocephalic, atraumatic. NECK: Supple without any lymphadenopathy or thyromegaly. CHEST: Breath sounds are decreased bilaterally with mild expiratory wheezes. No obvious rales. CARDIOVASCULAR: Normal S1, S2. There is no murmur or gallop. There is no JVD. There is no carotid bruit. Pulses are 2+/4+ bilaterally. ABDOMEN: Soft, nontender, no organomegaly or masses felt. GENITOURINARY: Deferred. RECTAL: Deferred. EXTREMITIES: There is no edema, cyanosis, or clubbing. LABORATORY DATA: Portable chest x-ray shows small lung volumes, otherwise clear. Electrolytes are normal except for creatinine of 1.3. WBC 15,300, hemoglobin 10.9, platelets are normal. Moderate bandemia is noted at 10%. Arterial blood gas revealed pH 7.29, pCO2 84, pO2 88. Troponin 9.0. EKG shows possible ischemia. IMPRESSION: 1. Acute on chronic hypercapnic hypoxic respiratory failure in this 56-year-old white female secondary to chronic obstructive pulmonary disease exacerbation, possible pneumonia. Troponin is markedly elevated in this admission with possible ischemic changes. Acute coronary syndrome and heart failure is also considered. 2. Chronic obstructive pulmonary disease, severe impairment, oxygen dependent of 4-6 liters. 3. Obstructive sleep apnea and obesity hypoventilation syndrome, on BiPAP with O2. 4. Elevated troponin, cardiology has been consulted. 5. Renal insufficiency, appears to be chronic kidney injury with a baseline creatinine of 1.3-1.7, antiphospholipid antibody, multiple cerebrovascular accidents, the patient has refused anticoagulation in the past. 6. Patent foramen ovale. 7. Hypertension. 8. Diabetes mellitus type 2. [address] [address] CONSULTATION Name: SERAFIN BLANTON Room #: 355-P [facility] IN M.R.#: [id number] Admission: 04/22/17 Attend Phys: Conor Leija MD Discharge: Date of : 56 Report #: [id number] 9. Coronary artery disease with ischemic cardiomyopathy with elevated troponin as mentioned above. 10. Moderate pulmonary hypertension due to severe pulmonary impairment. RECOMMENDATIONS: Agree with corticosteroids, bronchodilators, and broad spectrum antibiotics. DVT and GI prophylaxis will be addressed. We will await cardiac evaluation. Thank you for this consultation. <ELECTRONICALLY SIGNED> By: Odell Ortiz MD 04/23/17 1426 1223 195 Odell Ortiz MD /nt
--- NOTE | ~2017-04-22 | EKG ---
[place] [address] [facility] [place] [address] ELECTROCARDIOGRAM REPORT Name: SERAFIN BLANTON Room #: 251-P ADM IN M.R.#: [id number] Admission: 04/22/17 Attend Phys: Conor Leija MD Discharge: Date of : 56 Report #: [id number] THIS REPORT FOR: //name// [facility] Test Date: 2017-04-24 Test Time: 07:19:07 Pat Name: SERAFIN BLANTON Department: Room: [facility] Gender: F Order To Delivery Supervisor: DAHIANA : 1960 Requested By: Heather Palma Order Number: [id number] MD: Delfino Pollack Measurements Intervals Leonore Rate: 144 P: 82 NH: 135 QRS: 56 QRSD: 99 T: 258 QT: 301 QTc: 466 Interpretive Statements Baseline artifact limits interpretation. Supraventricular rhythm Nonspecific ST and T wave abnormality No previous ECGs available for comparison Electronically Signed On 04-25-2017 14:11:23 METALLOGRAPHIC TECHNICIAN by Delfino Pollack [email or web address] <ELECTRONICALLY SIGNED> By: Delfino Pollack MD, [facility] 04/25/17 1411 D: 12/718 8 Delfino Pollack MD, FACC /EPI
--- NOTE | ~2017-04-22 | EKG ---
[place] [address] [facility] [place] [address] ELECTROCARDIOGRAM REPORT Name: SERAFIN BLANTON Room #: 247-P ADM IN M.R.#: [id number] Admission: 04/22/17 Attend Phys: Conor Leija MD Discharge: Date of : 56 Report #: [id number] THIS REPORT FOR: //name// [facility] ED Test Date: 2017-04-22 Test Time: 01:23:59 Pat Name: SERAFIN BLANTON Department: Room: [facility] Gender: F Career Development Facilitator: ZAIN : 1960 Requested By: Cheryl Gerard Order Number: [id number] MD: Delfino Pollack Measurements Intervals Morris Rate: 142 P: 90 NV: 154 QRS: 49 QRSD: 90 T: -82 QT: 282 QTc: 434 Interpretive Statements Sinus tachycardia Ventricular premature complex Probable left atrial enlargement Repol abnrm suggests ischemia, diffuse leads Compared to ECG 03/05/2017 05:46:16 Ventricular premature complex(es) now present Electronically Signed On 04-23-2017 8:07:25 PIPE CLEANER by Delfino Pollack [email or web address] <ELECTRONICALLY SIGNED> By: Delfino Pollack MD, [facility] 04/23/17 0807 0123 0123 Delfino Pollack MD, [facility] /EPI
--- NOTE | ~2017-04-22 | HC ---
[facility] [place] [address] CONSULTATION Name: SERAFIN BLANTON Room #: 238-P [facility] IN ..#: [id number] Admission: 04/22/17 Attend Phys: Conor Leija MD Discharge: Date of : 56 Report #: [id number] THIS REPORT FOR: //name// CC: Conor Ndiaye DATE OF SERVICE: 05/05/2017 REASON FOR CONSULTATION: Hypernatremia. REASON FOR PRESENTATION: Progressive shortness of breath. HISTORY OF PRESENT ILLNESS: The patient is a 56-year-old who was admitted around April 22, with shortness of breath. She was admitted initially to the regular floor and then was transferred to the ICU after being found nonresponsive with tachycardia. Troponins were elevated on her presentation at 9. She is known to have COPD, oxygen dependent; coronary artery disease, cardiomyopathy, hypertension, and hyperlipidemia. The patient was transferred as I stated down to the ICU where she was intubated. During her hospital stay, she developed many complications. She continues to maintain close to normal kidney function with a creatinine of around 1.3 as of today. She developed hypernatremia and I am being asked to evaluate accordingly. As I stated, she has very significant comorbid conditions with her blood gases showing severe persistent respiratory acidosis due to her COPD with appropriate compensation with a carbon dioxide of 45. PAST MEDICAL HISTORY: Extensive and includes the followin. Cardiomyopathy with an ejection fraction of around 35%. 2. Non-STEMI. 3. Hypertension. 4. Hyperlipidemia. 5. Respiratory failure, status post intubation. 6. Coronary artery disease. 7. COPD. 8. Endocarditis. 9. Diabetes mellitus. 10. Peripheral artery disease. PAST SURGICAL HISTORY: 1. Appendectomy. 2. Cholecystectomy. 3. . FAMILY HISTORY: Heart disease. SOCIAL HISTORY: She quit smoking about a year ago. No drug or alcohol abuse. [facility] [address] [place] [address] CONSULTATION Name: SERAFIN BLANTON Room #: 238-P [facility] IN [facility]#: [id number] Admission: 04/22/17 Attend Phys: Conor Leija MD Discharge: Date of : 56 Report #: [id number] REVIEW OF SYSTEMS: Currently unobtainable given that the patient is intubated and sedated. CURRENT MEDICATIONS: 1. Acetaminophen. 2. Hydralazine. 3. Famotidine. 4. Levothyroxine. 5. Methylprednisone. 6. Metoprolol. PHYSICAL EXAMINATION: GENERAL: The patient is currently intubated. VITAL SIGNS: Temperature 37.6, blood pressure 110/70. HEAD AND NECK: ET tube. CHEST: Decreased air entry bilaterally. CARDIOVASCULAR: Regular with no rub. ABDOMEN: Soft, nontender. LOWER EXTREMITIES: +1 edema. LABORATORY VALUES: Reviewed. Hemoglobin 7.9, platelet 82. Sodium 160, carbon dioxide 45, BUN 70, and creatinine 1.3. IMAGES: Chest x-ray reviewed. ASSESSMENT, IMPRESSION, AND PLAN: 1. Hypernatremia. 2. Hypercapnic acute respiratory failure. 3. Influenza. 4. Chronic obstructive pulmonary disease exacerbations. 5. Antiphospholipid antibody syndrome. 6. Hypertension. 7. Obstructive sleep apnea. 8. Diabetes mellitus. 9. Her hypernatremia is well explained by free water losses and inadequate p.o. intake. 10. We will initiate on D5W. 11. Vent management. 12. Watch volume status. 13. P.r.n. diuresis; however, none is needed at this point. [facility] [address] [place] [address] CONSULTATION Name: HARVINDERSERAFIN Room #: 238-[facility] IN .R.#: [id number] Admission: 04/22/17 Attend Phys: Conor Leija MD Discharge: Date of : 56 Report #: [id number] 14. Steroids for her chronic obstructive pulmonary disease. 15. We will continue to follow along. <ELECTRONICALLY SIGNED> By: Elsa Orantes MD 05/12/17 0939 1007 1159 Elsa Orantes MD /nt
--- NOTE | ~2017-04-22 | CATHLAB ---
[facility] [address] [place] [address] INVASIVE PROCEDURE REPORT Name: SERAFIN BLANTON Room #: 238-P ADM IN ..#: [id number] Admission: 04/22/17 Attend Phys: Conor Leija MD Discharge: Date of : 56 Date of Service: 05/11/17 1434 Report #: [id number] THIS REPORT FOR: //name// APPROVED REPORT Patient Details Patient Status: In-Patient Room #: 238 The patient is a 56 year-old female Event Personnel James [employer] Director, Teddy Samuel RN, Silvia Verduzco Sandifer, David Monitor Procedures Performed Art Access - R femoral artery* Left Heart Cath w/or w/o Coronaries [id number] [facility] Hemostasis w/ Mynx Indication Non-STEMI , Heart failure Risk Factors Obesity, Chronic Lung DiseaseHypercholesterolemia, Coronary Artery DiseaseHypertension Previous Procedures/Diagnoses Previous PCI Procedure Narrative The Right Groin^ was infiltrated with 1% Lidocaine subcutaneous anesthesia. A PINNACLE 5FR Sheath #[id number] sheath was inserted into the RFA^. Coronary angiography was performed using coronary diagnostic catheters. The right coronary system was accessed and visualized with a 5FR JR 4 #[id number] catheter. The left coronary system was accessed and visualized with a 5FR JL5 #[id number] catheter. The left ventricle was accessed and visualized with a 5FR PIG 145 ANGLED #[id number] catheter. Left ventricular/Aortic Valve gradient assessed via catheter pullback. Left ventriculogram was performed in 30 degree projection. Closure device was deployed with a 5 Fr MYNXGRIP 5F #[id number]. The patient tolerated the procedure well and there were no complications associated with the procedure. There was no hematoma. Intraoperative Conscious Sedation Sedation start time: 12:18 Case end Time: 12:36 [facility] [place] [address] INVASIVE PROCEDURE REPORT Name: SERAFIN BLANTON Room #: 238-P [facility] IN ..#: [id number] Admission: 04/22/17 Attend Phys: Conor Leija MD Discharge: Date of : 56 Date of Service: 05/11/17 1434 Report #: [id number] Fluoro Time: 3.05 minutes Dose: 556 mGy Contrast Type and Amount: Omnipaque 135 ml Coronary Angiography The patient's coronary anatomy is right dominant. Diagnostic Cath Left Main patent vessel, with no flow-limiting lesions. LAD Moderate size caliber vessel, traveling down the anterior wall and wrapping around the apex. There is mild diffuse disease in the proximal segment. There is a stent in the midsegment, patent. Just before the stent, there is a moderate stenosis, 40%. Diagonal 1 Small-caliber vessel, with no flow-limiting. Circumflex Mild to moderate diffuse disease in the proximal segment, 30-40%. OM1 Patent vessel, with no flow-limiting lesions. OM2 Small-caliber vessel, with mild diffuse disease. Right Coronary Dominant vessel with a total occlusion at the proximal segment. The distal branches are well filled via collateral circulation from the left coronary artery. This is unchanged from prior procedures. Left Ventriculography The left ventricle is mildly dilated in size with decreased contractility. The left ventricular ejection fraction is estimated to be 35-40%. Hemodynamics The aortic pressure is 170/90 mmHg with a mean of 121 mmHg. The left ventricular pressure is 177/13 mmHg with a mean of mmHg. The left ventricular end diastolic pressure is 36 mmHg. Conclusion 1. Patent stent in the mid LAD segment. There is a moderate stenosis just before the stent. 2. Mild to moderate disease in the left circumflex artery. 3. Occluded RCA with distal collateral filling. This is unchanged from prior procedures. [facility] [address] [place] [address] INVASIVE PROCEDURE REPORT Name: SERAFIN BLANTON Room #: 238-P [facility]#: [id number] Admission: 04/22/17 Attend Phys: Conor Leija MD Discharge: Date of : 56 Date of Service: 05/11/17 1434 Report #: [id number] 4. Moderate global LV dysfunction. 5. Recommend medical therapy. <ELECTRONICALLY SIGNED> By: James Tsai MD 05/11/17 1434 1434 1434 James Tsai MD /INF
--- NOTE | ~2017-04-22 | EKG ---
[place] [address] [address] [facility] [place] [address] ELECTROCARDIOGRAM REPORT Name: SERAFIN BLANTON Room #: 251-P ADM IN M.R.#: [id number] Admission: 04/22/17 Attend Phys: Conor Leija MD Discharge: Date of : 56 Report #: [id number] THIS REPORT FOR: //name// [facility] Test Date: 2017-04-24 Test Time: 08:22:53 Pat Name: SERAFIN BLANTON Department: Room: 251 Gender: F [employer]: DAVID : 1960 Requested By: Jeremy Howard Order Number: [id number] MD: Delfino Pollack Measurements Intervals [place] Rate: 139 P: 39 DE: 131 QRS: 53 QRSD: 107 T: 6 QT: 332 QTc: 505 Interpretive Statements Sinus tachycardia Diffuse, ST and T wave abnormality no previous ECGs available for comparison Electronically Signed On 04-25-2017 14:14:39 [employer] by Delfino Pollack [email or web address] <ELECTRONICALLY SIGNED> By: Delfino Pollack MD, [facility] 04/25/17 1414 0822 1 Delfino Pollack MD, FACC /EPI
[2017-04-22 01:33] LABS: HEMATOCRIT 33.9 % (37.0-47.0); HEMOGLOBIN 10.9 gm/dL (12.0-15.0); MCH 25.6 pg (26.0-34.0); MCHC 32.1 g/dL (28.0-37.0); MCV 79.7 fL (80.0-100.0); PLATELET COUNT 245 thou/uL (150-400); RBC 4.25 mil/uL (4.20-5.00); WBC 15.3 thou/uL (4.0-11.0)
[2017-04-22 01:37] LABS: BE(vivo) 10.4 mmol/L (-2 to +3); HCO3 39.9 mmol/L (22.0-26.0); PO2 88.5 mmHg (80.0-100.0); sO2 95.3 % (92.0-98.0)
[2017-04-22 01:38] LABS: PCO2 84.2 mmHg (35.0-45.0); pH 7.293 (7.360-7.450)
[2017-04-22 01:48] LABS: CALCIUM 9.6 mg/dL (8.5-10.1); CREATININE 1.3 mg/dL (0.6-1.0); POTASSIUM 4.4 mmol/L (3.5-5.1)
[2017-04-22 01:59] LABS: ABSOLUTE NEUTROPHILS 14.1 thou/uL (1.4-8.2); ANISOCYTOSIS 2+; ATYPICAL LYMPHS 1 %; POLYCHROMASIA 1+
[2017-04-22 05:52] LABS: BE(vivo) 6.4 mmol/L (-2 to +3); HCO3 33.2 mmol/L (22.0-26.0); PCO2 60.2 mmHg (35.0-45.0); PO2 108.7 mmHg (80.0-100.0); pH 7.359 (7.360-7.450); sO2 97.7 % (92.0-98.0)
[2017-04-23] VITALS (10 sets, daily range): BP systolic 106–142; BP diastolic 63–94
[2017-04-23 05:48] LABS: HEMATOCRIT 25.2 % (37.0-47.0); MCH 26.3 pg (26.0-34.0); MCHC 33.1 g/dL (28.0-37.0); MCV 79.3 fL (80.0-100.0); RBC 3.18 mil/uL (4.20-5.00); RDW 20.9 % (10.5-14.5); WBC 5.2 thou/uL (4.0-11.0)
[2017-04-23 05:50] LABS: HEMOGLOBIN 8.4 gm/dL (12.0-15.0); PLATELET COUNT 143 thou/uL (150-400)
[2017-04-23 05:56] LABS: CALCIUM 8.4 mg/dL (8.5-10.1); CREATININE 1.6 mg/dL (0.6-1.0); POTASSIUM 4.2 mmol/L (3.5-5.1)
[2017-04-23 05:56] LABS: BE(vivo) 7.5 mmol/L (-2 to +3); PCO2 59.5 mmHg (35.0-45.0); PO2 156.6 mmHg (80.0-100.0); pH 7.375 (7.360-7.450); sO2 98.9 % (92.0-98.0)
[2017-04-23 06:44] LABS: ABSOLUTE NEUTROPHILS 4.6 thou/uL (1.4-8.2); ANISOCYTOSIS 2+; METAMYELOCYTES 1 %; POLYCHROMASIA 1+
[2017-04-24] VITALS (21 sets, daily range): BP systolic 82–187; BP diastolic 49–146
[2017-04-24 03:03] LABS: TROPONIN-I 3.15 ng/mL (<0.06)
[2017-04-24 04:10] LABS: HEMATOCRIT 30.3 % (37.0-47.0); HEMOGLOBIN 9.7 gm/dL (12.0-15.0); MCH 25.7 pg (26.0-34.0); MCHC 31.8 g/dL (28.0-37.0); MCV 80.7 fL (80.0-100.0); PLATELET COUNT 189 thou/uL (150-400); RBC 3.76 mil/uL (4.20-5.00); RDW 21.2 % (10.5-14.5); WBC 13.2 thou/uL (4.0-11.0)
[2017-04-24 04:16] LABS: CALCIUM 8.7 mg/dL (8.5-10.1); CREATININE 1.6 mg/dL (0.6-1.0); POTASSIUM 4.6 mmol/L (3.5-5.1)
[2017-04-24 04:53] LABS: ANISOCYTOSIS 2+; MYELOCYTES 1 %; POLYCHROMASIA 2+
[2017-04-24 08:20] LABS: BE(vivo) -2.7 mmol/L (-2 to +3); HCO3 30.6 mmol/L (22.0-26.0); PCO2 117.2 mmHg (35.0-45.0); PO2 92.1 mmHg (80.0-100.0); pH 7.034 (7.360-7.450); sO2 91.8 % (92.0-98.0)
[2017-04-24 08:55] LABS: TROPONIN-I 1.51 ng/mL (<0.06)
[2017-04-24 08:58] LABS: HEMATOCRIT 34.7 % (37.0-47.0); HEMOGLOBIN 10.4 gm/dL (12.0-15.0); MCH 24.7 pg (26.0-34.0); MCHC 29.9 g/dL (28.0-37.0); MCV 82.7 fL (80.0-100.0); RDW 21.1 % (10.5-14.5)
[2017-04-24 08:59] LABS: WBC 31.7 thou/uL (4.0-11.0)
[2017-04-24 09:00] LABS: PLATELET COUNT 342 thou/uL (150-400)
[2017-04-24 09:18] LABS: CALCIUM 8.6 mg/dL (8.5-10.1); CREATININE 1.9 mg/dL (0.6-1.0)
[2017-04-24 09:20] LABS: POTASSIUM 5.6 mmol/L (3.5-5.1)
[2017-04-24 09:23] LABS: ALBUMIN 3.2 g/dL (3.4-5.0); TOTAL BILIRUBIN 0.4 mg/dL (<0.1-1.0); TOTAL PROTEIN 7.4 g/dL (6.4-8.2)
[2017-04-24 10:00] LABS: METAMYELOCYTES 3 %
[2017-04-24 10:01] LABS: ABSOLUTE NEUTROPHILS 25.7 thou/uL (1.4-8.2); ANISOCYTOSIS 2+; MYELOCYTES 1 %
[2017-04-24 10:02] LABS: MACROCYTES 1+; MICROCYTES 1+; POLYCHROMASIA OCCASIONAL
[2017-04-24 10:11] LABS: BE(vivo) 0.1 mmol/L (-2 to +3); HCO3 32.3 mmol/L (22.0-26.0); PO2 396.3 mmHg (80.0-100.0); sO2 99.7 % (92.0-98.0)
[2017-04-24 10:12] LABS: PCO2 106.3 mmHg (35.0-45.0)
[2017-04-24 10:52] LABS: APTT 28.7 Seconds (24.5-32.8); PROTIME 10.2 Seconds (9.3-11.4)
[2017-04-25] VITALS (26 sets, daily range): BP systolic 83–156; BP diastolic 41–96
[2017-04-25 03:47] LABS: HEMATOCRIT 25.2 % (37.0-47.0); MCH 26.3 pg (26.0-34.0); MCHC 33.4 g/dL (28.0-37.0); MCV 78.7 fL (80.0-100.0); RBC 3.21 mil/uL (4.20-5.00); RDW 20.5 % (10.5-14.5)
[2017-04-25 04:02] LABS: CALCIUM 8.3 mg/dL (8.5-10.1); CREATININE 1.8 mg/dL (0.6-1.0); MAGNESIUM 2.2 mg/dL (1.8-2.4); POTASSIUM 3.5 mmol/L (3.5-5.1)
[2017-04-25 04:13] LABS: HEMOGLOBIN 8.4 gm/dL (12.0-15.0)
[2017-04-25 05:23] LABS: ABSOLUTE NEUTROPHILS 5.3 thou/uL (1.4-8.2)
[2017-04-25 05:24] LABS: ANISOCYTOSIS 3+; LARGE PLATELETS RARE; MACROCYTES 1+; MICROCYTES 1+; PLATELET COUNT 129 thou/uL (150-400)
[2017-04-25 05:27] LABS: BE(vivo) 4.7 mmol/L (-2 to +3); HCO3 30.7 mmol/L (22.0-26.0); PCO2 52.9 mmHg (35.0-45.0); PO2 100.7 mmHg (80.0-100.0); pH 7.381 (7.360-7.450); sO2 97.4 % (92.0-98.0)
[2017-04-26] VITALS (28 sets, daily range): BP systolic 117–185; BP diastolic 57–107
[2017-04-26 03:35] LABS: HEMATOCRIT 25.8 % (37.0-47.0); HEMOGLOBIN 8.4 gm/dL (12.0-15.0); MCH 26.2 pg (26.0-34.0); MCHC 32.7 g/dL (28.0-37.0); MCV 80.3 fL (80.0-100.0); RBC 3.21 mil/uL (4.20-5.00); RDW 20.6 % (10.5-14.5)
[2017-04-26 03:36] LABS: CALCIUM 8.1 mg/dL (8.5-10.1); CREATININE 1.6 mg/dL (0.6-1.0); MAGNESIUM 2.4 mg/dL (1.8-2.4)
[2017-04-26 05:11] LABS: HCO3 29.5 mmol/L (22.0-26.0); PO2 88.2 mmHg (80.0-100.0); sO2 94.9 % (92.0-98.0)
[2017-04-26 05:12] LABS: PCO2 70.2 mmHg (35.0-45.0); pH 7.241 (7.360-7.450)
[2017-04-27] VITALS (25 sets, daily range): BP systolic 120–172; BP diastolic 66–96
[2017-04-27 01:08] LABS: ADENOVIRUS Negative (Negative); INFLUENZA A Negative (Negative); INFLUENZA B Positive (Negative); METAPNEUMOVIRUS Negative (Negative); PARAINFLUENZA 1 Negative (Negative); PARAINFLUENZA 2 Negative (Negative); PARAINFLUENZA 3 Negative (Negative); RHINOVIRUS Negative (Negative); RSV A Negative (Negative); RSV B Negative (Negative)
[2017-04-27 05:38] LABS: BE(vivo) 5.1 mmol/L (-2 to +3); HCO3 32.4 mmol/L (22.0-26.0); PCO2 64.5 mmHg (35.0-45.0); PO2 78.9 mmHg (80.0-100.0); pH 7.319 (7.360-7.450); sO2 94.3 % (92.0-98.0)
[2017-04-27 10:42] LABS: HEMATOCRIT 28.4 % (37.0-47.0); HEMOGLOBIN 9.1 gm/dL (12.0-15.0); MCH 25.9 pg (26.0-34.0); MCV 80.9 fL (80.0-100.0); PLATELET COUNT 125 thou/uL (150-400); RBC 3.51 mil/uL (4.20-5.00); RDW 20.6 % (10.5-14.5); WBC 6.8 thou/uL (4.0-11.0)
[2017-04-27 10:50] LABS: CALCIUM 8.4 mg/dL (8.5-10.1); CREATININE 1.6 mg/dL (0.6-1.0); MAGNESIUM 2.4 mg/dL (1.8-2.4); POTASSIUM 4.1 mmol/L (3.5-5.1)
[2017-04-27 10:59] LABS: URINE BILIRUBIN NEGATIVE (Negative); URINE BLOOD 1+ (Negative); URINE CLARITY CLEAR; URINE COLOR YELLOW; URINE GLUCOSE-RANDOM* NEGATIVE (Negative); URINE KETONES NEGATIVE (Negative); URINE LEUKOCYTES-REFLEX NEGATIVE (Negative); URINE NITRITE-REFLEX NEGATIVE (Negative); URINE PROTEIN (DIPSTICK) 1+ (Negative); URINE UROBILINOGEN 0.2 E.U./dl (0.2-1.0)
[2017-04-27 11:36] LABS: YEAST-REFLEX Present (None Seen)
[2017-04-27 11:38] LABS: CASTS None Seen /LPF (None Seen); CRYSTALS None Seen /LPF (None Seen); SQUAMOUS 0-3 Few /LPF (0-3); URINE RBC 0-2 Rare /HPF (0-2)
[2017-04-27 11:39] LABS: BACTERIA-REFLEX None Seen /HPF (None Seen); URINE WBC-REFLEX 0-5 Rare /HPF (0-5)
[2017-04-27 12:43] LABS: ABSOLUTE NEUTROPHILS 6.1 thou/uL (1.4-8.2); ATYPICAL LYMPHS 2 %; METAMYELOCYTES 3 %; NUCLEATED RBCS 1 /100WBC
[2017-04-27 12:44] LABS: POLYCHROMASIA 1+
[2017-04-27 12:45] LABS: ANISOCYTOSIS 1+; MICROCYTES 1+
[2017-04-28] VITALS (19 sets, daily range): BP systolic 122–174; BP diastolic 53–105
[2017-04-28 05:16] LABS: BE(vivo) 9.3 mmol/L (-2 to +3); HCO3 36.5 mmol/L (22.0-26.0); PO2 66.9 mmHg (80.0-100.0); pH 7.363 (7.360-7.450)
[2017-04-28 05:17] LABS: PCO2 65.6 mmHg (35.0-45.0)
[2017-04-28 05:37] LABS: HEMATOCRIT 28.5 % (37.0-47.0); HEMOGLOBIN 9.1 gm/dL (12.0-15.0); MCHC 31.9 g/dL (28.0-37.0); MCV 81.3 fL (80.0-100.0); PLATELET COUNT 106 thou/uL (150-400); RBC 3.51 mil/uL (4.20-5.00); RDW 20.4 % (10.5-14.5)
[2017-04-28 05:49] LABS: MAGNESIUM 2.5 mg/dL (1.8-2.4)
[2017-04-28 07:18] LABS: ABSOLUTE NEUTROPHILS 4.9 thou/uL (1.4-8.2); ATYPICAL LYMPHS 2 %; METAMYELOCYTES 8 %; MYELOCYTES 1 %; NUCLEATED RBCS 1 /100WBC
[2017-04-28 07:19] LABS: ANISOCYTOSIS 2+; POLYCHROMASIA OCCASIONAL
[2017-04-29] VITALS (17 sets, daily range): BP systolic 130–167; BP diastolic 59–116
[2017-04-29 05:25] LABS: HEMATOCRIT 31.4 % (37.0-47.0); HEMOGLOBIN 9.6 gm/dL (12.0-15.0); MCH 25.8 pg (26.0-34.0); MCHC 30.7 g/dL (28.0-37.0); MCV 84.1 fL (80.0-100.0); PLATELET COUNT 122 thou/uL (150-400); RBC 3.74 mil/uL (4.20-5.00); RDW 21.1 % (10.5-14.5); WBC 9.3 thou/uL (4.0-11.0)
[2017-04-29 05:37] LABS: BE(vivo) 8.7 mmol/L (-2 to +3); HCO3 37.6 mmol/L (22.0-26.0); PCO2 79.9 mmHg (35.0-45.0); sO2 88.8 % (92.0-98.0)
[2017-04-29 05:38] LABS: pH 7.291 (7.360-7.450)
[2017-04-29 05:42] LABS: ALBUMIN 2.6 g/dL (3.4-5.0); CALCIUM 9.4 mg/dL (8.5-10.1); CREATININE 1.4 mg/dL (0.6-1.0); POTASSIUM 4.6 mmol/L (3.5-5.1); TOTAL BILIRUBIN 0.3 mg/dL (<0.1-1.0); TOTAL PROTEIN 6.8 g/dL (6.4-8.2)
[2017-04-29 09:20] LABS: ABSOLUTE NEUTROPHILS 7.3 thou/uL (1.4-8.2); ANISOCYTOSIS 2+; ATYPICAL LYMPHS 1 %; METAMYELOCYTES 8 %; MYELOCYTES 2 %
[2017-04-29 09:21] LABS: POLYCHROMASIA SLIGHT
[2017-04-29 22:08] LABS: HAV IgM AB (ANTI-HAV IgM) Negative (Negative); HEPATITIS B SURFACE AG Negative (Negative); HEPATITIS C VIRUS AB <0.1 (0.0-0.9)
[2017-04-30] VITALS (33 sets, daily range): BP systolic 85–169; BP diastolic 47–98
[2017-04-30 05:16] LABS: ALBUMIN 2.3 g/dL (3.4-5.0); CALCIUM 8.8 mg/dL (8.5-10.1); CREATININE 1.5 mg/dL (0.6-1.0); POTASSIUM 3.7 mmol/L (3.5-5.1); TOTAL BILIRUBIN 0.3 mg/dL (<0.1-1.0); TOTAL PROTEIN 6.1 g/dL (6.4-8.2)
[2017-05-01] VITALS (46 sets, daily range): BP systolic 96–175; BP diastolic 50–124
[2017-05-01 02:06] LABS: ANTI-VCA/IgG >600.0 U/mL (0.0-17.9); ANTI-VCA/IgM 86.8 U/mL (0.0-35.9)
[2017-05-01 04:22] LABS: HEMATOCRIT 27.1 % (37.0-47.0); HEMOGLOBIN 8.6 gm/dL (12.0-15.0); MCH 26.4 pg (26.0-34.0); MCHC 31.8 g/dL (28.0-37.0); RBC 3.26 mil/uL (4.20-5.00); RDW 20.9 % (10.5-14.5); WBC 6.9 thou/uL (4.0-11.0)
[2017-05-01 04:30] LABS: CALCIUM 8.8 mg/dL (8.5-10.1); CREATININE 1.5 mg/dL (0.6-1.0); MAGNESIUM 2.8 mg/dL (1.8-2.4); POTASSIUM 4.2 mmol/L (3.5-5.1)
[2017-05-01 06:12] LABS: PCO2 68.5 mmHg (35.0-45.0); PO2 80.1 mmHg (80.0-100.0); pH 7.405 (7.360-7.450); sO2 95.4 % (92.0-98.0)
[2017-05-02] VITALS (45 sets, daily range): BP systolic 105–170; BP diastolic 56–139
[2017-05-02 04:01] LABS: HEMATOCRIT 25.3 % (37.0-47.0); HEMOGLOBIN 8.2 gm/dL (12.0-15.0); MCH 25.9 pg (26.0-34.0); MCHC 32.3 g/dL (28.0-37.0); MCV 80.1 fL (80.0-100.0); RBC 3.16 mil/uL (4.20-5.00); RDW 20.5 % (10.5-14.5)
[2017-05-02 04:11] LABS: BUN 83 mg/dL (7-18); CALCIUM 8.8 mg/dL (8.5-10.1); CHLORIDE 118 mmol/L (98-107); CREATININE 1.3 mg/dL (0.6-1.0); GLUCOSE 168 mg/dL (74-106); POTASSIUM 4.6 mmol/L (3.5-5.1)
[2017-05-02 04:15] LABS: CO2 > 45 mmol/L (21-32); SODIUM 162 mmol/L (136-145)
[2017-05-02 13:53] LABS: PO2 62.1 mmHg (80.0-100.0); pH 7.431 (7.360-7.450); sO2 91.4 % (92.0-98.0)
[2017-05-02 13:54] LABS: PCO2 69.2 mmHg (35.0-45.0)
[2017-05-03] VITALS (37 sets, daily range): BP systolic 79–158; BP diastolic 52–77
[2017-05-03 04:33] LABS: BE(vivo) 17.5 mmol/L (-2 to +3); HCO3 44.6 mmol/L (22.0-26.0); PO2 74.8 mmHg (80.0-100.0); sO2 94.8 % (92.0-98.0)
[2017-05-03 04:34] LABS: PCO2 68.7 mmHg (35.0-45.0)
[2017-05-03 06:12] LABS: HEMATOCRIT 28.4 % (37.0-47.0); HEMOGLOBIN 8.7 gm/dL (12.0-15.0); MCH 26.2 pg (26.0-34.0); MCHC 30.6 g/dL (28.0-37.0); RBC 3.32 mil/uL (4.20-5.00); RDW 20.9 % (10.5-14.5); WBC 10.1 thou/uL (4.0-11.0)
[2017-05-03 06:14] LABS: MCV 85.4 fL (80.0-100.0)
[2017-05-03 06:16] LABS: PLATELET COUNT 87 thou/uL (150-400)
[2017-05-03 06:32] LABS: ALBUMIN 2.2 g/dL (3.4-5.0); BUN 81 mg/dL (7-18); CALCIUM 8.8 mg/dL (8.5-10.1); CHLORIDE 117 mmol/L (98-107); CREATININE 1.3 mg/dL (0.6-1.0); GLUCOSE 217 mg/dL (74-106); POTASSIUM 4.4 mmol/L (3.5-5.1); SGOT 30 U/L (15-37); SGPT 275 U/L (30-65); TOTAL BILIRUBIN 0.4 mg/dL (<0.1-1.0); TOTAL PROTEIN 5.8 g/dL (6.4-8.2)
[2017-05-03 06:35] LABS: CO2 > 45 mmol/L (21-32); SODIUM 163 mmol/L (136-145)
[2017-05-03 08:27] LABS: ABSOLUTE NEUTROPHILS 8.4 thou/uL (1.4-8.2); ANISOCYTOSIS 2+; METAMYELOCYTES 5 %
[2017-05-03 08:28] LABS: POLYCHROMASIA OCCASIONAL
[2017-05-04] VITALS (13 sets, daily range): BP systolic 76–131; BP diastolic 52–63
[2017-05-04 05:18] LABS: HEMOGLOBIN 7.9 gm/dL (12.0-15.0); MCH 26.2 pg (26.0-34.0); MCHC 30.6 g/dL (28.0-37.0); MCV 85.7 fL (80.0-100.0); PLATELET COUNT 82 thou/uL (150-400); RBC 3.03 mil/uL (4.20-5.00); RDW 20.5 % (10.5-14.5); WBC 9.5 thou/uL (4.0-11.0)
[2017-05-04 05:31] LABS: BUN 77 mg/dL (7-18); CALCIUM 8.4 mg/dL (8.5-10.1); CHLORIDE 114 mmol/L (98-107); CREATININE 1.2 mg/dL (0.6-1.0); GLUCOSE 158 mg/dL (74-106); POTASSIUM 3.9 mmol/L (3.5-5.1); SODIUM 160 mmol/L (136-145)
[2017-05-04 05:32] LABS: CO2 > 45 mmol/L (21-32)
[2017-05-04 05:44] LABS: ABSOLUTE NEUTROPHILS 8.6 thou/uL (1.4-8.2)
[2017-05-04 05:45] LABS: ANISOCYTOSIS 2+; LARGE PLATELETS OCCASIONAL; PLATELET ESTIMATE DECREASED; POLYCHROMASIA 1+
[2017-05-04 13:21] LABS: BE(vivo) 19.3 mmol/L (-2 to +3); HCO3 47.1 mmol/L (22.0-26.0); PO2 58.6 mmHg (80.0-100.0); pH 7.403 (7.360-7.450); sO2 88.9 % (92.0-98.0)
[2017-05-04 13:23] LABS: PCO2 77.3 mmHg (35.0-45.0)
[2017-05-04 18:11] LABS: URINE BILIRUBIN NEGATIVE (Negative); URINE BLOOD 3+ (Negative); URINE CLARITY CLOUDY; URINE COLOR YELLOW; URINE GLUCOSE-RANDOM* NEGATIVE (Negative); URINE KETONES NEGATIVE (Negative); URINE NITRITE-REFLEX NEGATIVE (Negative); URINE PROTEIN (DIPSTICK) 2+ (Negative)
[2017-05-04 18:16] LABS: URINE LEUKOCYTES-REFLEX 2+ (Negative)
[2017-05-04 18:42] LABS: BACTERIA-REFLEX >30 Many /HPF (None Seen); CASTS None Seen /LPF (None Seen); MUCUS >6 Heavy strn/LPF (None Seen); SQUAMOUS 4-10 Moderate /LPF (0-3); URINE RBC >20 Many /HPF (0-2); URINE WBC-REFLEX >25 Many /HPF (0-5)
[2017-05-04 18:43] LABS: URIC ACID CRYSTALS 4-10 Moderate /LPF (None Seen); YEAST-REFLEX Present (None Seen)
[2017-05-05] VITALS (13 sets, daily range): BP systolic 100–1178; BP diastolic 53–71
[2017-05-05 04:53] LABS: BUN 70 mg/dL (7-18); CALCIUM 8.4 mg/dL (8.5-10.1); CHLORIDE 112 mmol/L (98-107); CREATININE 1.3 mg/dL (0.6-1.0); GLUCOSE 225 mg/dL (74-106); POTASSIUM 4.3 mmol/L (3.5-5.1); SODIUM 160 mmol/L (136-145)
[2017-05-05 04:55] LABS: CO2 > 45 mmol/L (21-32)
[2017-05-06] VITALS (41 sets, daily range): BP systolic 89–155; BP diastolic 47–70
[2017-05-06 05:21] LABS: ANION GAP < 0 mmol/L (7-16); BUN 52 mg/dL (7-18); CHLORIDE 104 mmol/L (98-107); CO2 43 mmol/L (21-32); GLUCOSE 139 mg/dL (74-106); PHOSPHORUS 4.1 mg/dL (2.5-4.9); POTASSIUM 4.2 mmol/L (3.5-5.1); SODIUM 146 mmol/L (136-145)
[2017-05-06 09:03] LABS: HEMATOCRIT 26.1 % (37.0-47.0); MCHC 30.7 g/dL (28.0-37.0); MCV 84.6 fL (80.0-100.0); PLATELET COUNT 96 thou/uL (150-400); RBC 3.08 mil/uL (4.20-5.00); RDW 20.8 % (10.5-14.5); WBC 11.8 thou/uL (4.0-11.0)
[2017-05-06 09:33] LABS: ABSOLUTE NEUTROPHILS 8.7 thou/uL (1.4-8.2); ANISOCYTOSIS 2+; METAMYELOCYTES 6 %; MICROCYTES 1+; MYELOCYTES 3 %; POLYCHROMASIA OCCASIONAL
[2017-05-06 11:47] LABS: BE(vivo) 18.3 mmol/L (-2 to +3); HCO3 45.1 mmol/L (22.0-26.0); pH 7.417 (7.360-7.450)
[2017-05-06 11:48] LABS: PCO2 71.7 mmHg (35.0-45.0)
[2017-05-06 11:49] LABS: sO2 92.7 % (92.0-98.0)
[2017-05-07] VITALS (32 sets, daily range): BP systolic 102–188; BP diastolic 49–92
[2017-05-07 08:28] LABS: BE(vivo) 15.5 mmol/L (-2 to +3); HCO3 41.9 mmol/L (22.0-26.0); PCO2 66.6 mmHg (35.0-45.0); PO2 62.8 mmHg (80.0-100.0); pH 7.417 (7.360-7.450); sO2 91.5 % (92.0-98.0)
[2017-05-07 08:44] LABS: HEMATOCRIT 22.8 % (37.0-47.0); HEMOGLOBIN 7.3 gm/dL (12.0-15.0); MCH 26.4 pg (26.0-34.0); MCHC 32.1 g/dL (28.0-37.0); MCV 82.4 fL (80.0-100.0); RBC 2.76 mil/uL (4.20-5.00); RDW 19.8 % (10.5-14.5); WBC 7.5 thou/uL (4.0-11.0)
[2017-05-07 08:53] LABS: CALCIUM 8.5 mg/dL (8.5-10.1); CREATININE 1.1 mg/dL (0.6-1.0); POTASSIUM 4.2 mmol/L (3.5-5.1)
[2017-05-08] VITALS (23 sets, daily range): BP systolic 107–156; BP diastolic 58–73
[2017-05-08 06:07] LABS: HEMATOCRIT 22.7 % (37.0-47.0); HEMOGLOBIN 7.3 gm/dL (12.0-15.0); MCH 26.5 pg (26.0-34.0); MCV 82.8 fL (80.0-100.0); PLATELET COUNT 89 thou/uL (150-400); RBC 2.74 mil/uL (4.20-5.00); RDW 20.1 % (10.5-14.5); WBC 5.7 thou/uL (4.0-11.0)
[2017-05-08 06:26] LABS: ALBUMIN 1.7 g/dL (3.4-5.0); CALCIUM 7.8 mg/dL (8.5-10.1); CREATININE 1.1 mg/dL (0.6-1.0); POTASSIUM 3.5 mmol/L (3.5-5.1); TOTAL BILIRUBIN 0.4 mg/dL (<0.1-1.0); TOTAL PROTEIN 5.1 g/dL (6.4-8.2)
[2017-05-08 07:45] LABS: ABSOLUTE NEUTROPHILS 4.8 thou/uL (1.4-8.2); ANISOCYTOSIS 3+; HYPOCHROMASIA SLIGHT; METAMYELOCYTES 2 %
[2017-05-08 07:46] LABS: POLYCHROMASIA OCCASIONAL
[2017-05-09] VITALS (22 sets, daily range): BP systolic 143–185; BP diastolic 64–148
[2017-05-09 05:08] LABS: MCH 26.4 pg (26.0-34.0); MCHC 32.1 g/dL (28.0-37.0); MCV 82.3 fL (80.0-100.0); RBC 3.4 mil/uL (4.20-5.00); RDW 20.1 % (10.5-14.5); WBC 11.6 thou/uL (4.0-11.0)
[2017-05-09 05:22] LABS: CALCIUM 8.4 mg/dL (8.5-10.1); CREATININE 0.9 mg/dL (0.6-1.0); POTASSIUM 3.1 mmol/L (3.5-5.1)
[2017-05-09 23:03] LABS: MAGNESIUM 2.3 mg/dL (1.8-2.4); POTASSIUM 3.9 mmol/L (3.5-5.1)
[2017-05-10] VITALS (21 sets, daily range): BP systolic 132–189; BP diastolic 69–86
[2017-05-10 04:53] LABS: MCH 26.4 pg (26.0-34.0); MCHC 32.1 g/dL (28.0-37.0); MCV 82.2 fL (80.0-100.0); RBC 3.41 mil/uL (4.20-5.00); WBC 12.7 thou/uL (4.0-11.0)
[2017-05-10 05:01] LABS: CALCIUM 8.4 mg/dL (8.5-10.1); CREATININE 0.9 mg/dL (0.6-1.0); POTASSIUM 4.3 mmol/L (3.5-5.1)
[2017-05-10 13:57] LABS: URINE BILIRUBIN NEGATIVE (Negative); URINE BLOOD 1+ (Negative); URINE CLARITY CLEAR; URINE COLOR YELLOW; URINE GLUCOSE-RANDOM* NEGATIVE (Negative); URINE KETONES NEGATIVE (Negative); URINE LEUKOCYTES-REFLEX NEGATIVE (Negative); URINE NITRITE-REFLEX NEGATIVE (Negative); URINE PROTEIN (DIPSTICK) NEGATIVE (Negative); URINE UROBILINOGEN 0.2 E.U./dl (0.2-1.0)
[2017-05-10 14:08] LABS: BACTERIA-REFLEX 1-9 Few /HPF (None Seen); CASTS None Seen /LPF (None Seen); CRYSTALS None Seen /LPF (None Seen); SQUAMOUS 0-3 Few /LPF (0-3); URINE RBC 3-10 Few /HPF (0-2); URINE WBC-REFLEX 0-5 Rare /HPF (0-5); YEAST-REFLEX Present (None Seen)
[2017-05-11] VITALS (18 sets, daily range): BP systolic 122–166; BP diastolic 65–97
[2017-05-12] VITALS (16 sets, daily range): BP systolic 121–169; BP diastolic 45–108
[2017-05-12 05:19] LABS: HEMATOCRIT 29.4 % (37.0-47.0); HEMOGLOBIN 9.7 gm/dL (12.0-15.0); MCHC 32.9 g/dL (28.0-37.0); MCV 82.3 fL (80.0-100.0); RBC 3.57 mil/uL (4.20-5.00); RDW 20.5 % (10.5-14.5); WBC 10.9 thou/uL (4.0-11.0)
[2017-05-12 05:27] LABS: CALCIUM 8.2 mg/dL (8.5-10.1); CREATININE 0.9 mg/dL (0.6-1.0); POTASSIUM 3.5 mmol/L (3.5-5.1)
[2017-05-12] MEDS ORDERED: NOVOLOG100 UNIT/1 SUBQ (12:49)
[2017-05-12] MEDS ORDERED: HYDROCODONE-AP1 EAC6 PO (12:49)
[2017-05-12] MEDS ORDERED: COZAAR 50 MG TA50 M2 PO (12:49)
[2017-05-12] MEDS ORDERED: CARVEDILOL6.25 MG PO (12:49)
[2017-05-12] MEDS ORDERED: ASPIR 8181 MG PER TUBE (12:49)
[2017-05-12] MEDS ORDERED: LIPITOR40 MG PER TUBE (12:49)
[2017-05-12] MEDS ORDERED: SOLU-MEDRO40 MG/1 M2 IV PUSH (12:49)
[2017-05-13 01:40] VITALS: BP 142/80
[2017-05-13 04:00] VITALS: BP 145/79
[2017-05-13 08:29] VITALS: BP 143/81
[2017-05-13 11:55] VITALS: BP 156/83
== END 2017-05-13 14:32 | DRG 870 ==
LOC: ER 01:13 → ICU 02:28 → EROBS 02:28 → ICU 02:49 → 3W 04-23 12:33 → ICU 04-24 09:32 → 2N 05-13 01:04
PROVIDERS: Emergency Medicine; Hospitalist; Internal Medicine; Internal Medicine Cardiovascular Disease; Internal Medicine Pulmonary Disease; Nurse Practitioner Acute Care; Specialist
PROC: 5A09357 Assistance with Respiratory Ventilation, Less than 24 Consecutive Hours, Continuous Positive Airway Pressure (ICD-10-PCS; principal; 2017-04-22)
PROC: 5A09357 Assistance with Respiratory Ventilation, Less than 24 Consecutive Hours, Continuous Positive Airway Pressure (ICD-10-PCS; 2017-04-22)
PROC: 5A09357 Assistance with Respiratory Ventilation, Less than 24 Consecutive Hours, Continuous Positive Airway Pressure (ICD-10-PCS; 2017-04-23)
PROC: 5A09357 Assistance with Respiratory Ventilation, Less than 24 Consecutive Hours, Continuous Positive Airway Pressure (ICD-10-PCS; 2017-04-23)
PROC: 5A1955Z Respiratory Ventilation, Greater than 96 Consecutive Hours (ICD-10-PCS; 2017-04-24)
PROC: 5A09357 Assistance with Respiratory Ventilation, Less than 24 Consecutive Hours, Continuous Positive Airway Pressure (ICD-10-PCS; 2017-04-24)
PROC: 5A09357 Assistance with Respiratory Ventilation, Less than 24 Consecutive Hours, Continuous Positive Airway Pressure (ICD-10-PCS; 2017-04-24)
PROC: 30233N1 Transfusion of Nonautologous Red Blood Cells into Peripheral Vein, Percutaneous Approach (ICD-10-PCS; 2017-05-07)
PROC: 5A09357 Assistance with Respiratory Ventilation, Less than 24 Consecutive Hours, Continuous Positive Airway Pressure (ICD-10-PCS; 2017-05-07)
PROC: 5A09357 Assistance with Respiratory Ventilation, Less than 24 Consecutive Hours, Continuous Positive Airway Pressure (ICD-10-PCS; 2017-05-08)
PROC: B215YZZ Fluoroscopy of Left Heart using Other Contrast (ICD-10-PCS; 2017-05-11)
PROC: 4A023N7 Measurement of Cardiac Sampling and Pressure, Left Heart, Percutaneous Approach (ICD-10-PCS; 2017-05-11)
PROC: B211YZZ Fluoroscopy of Multiple Coronary Arteries using Other Contrast (ICD-10-PCS; 2017-05-11)
PROC: 5A09357 Assistance with Respiratory Ventilation, Less than 24 Consecutive Hours, Continuous Positive Airway Pressure (ICD-10-PCS; 2017-05-12)
PROC: 5A09357 Assistance with Respiratory Ventilation, Less than 24 Consecutive Hours, Continuous Positive Airway Pressure (ICD-10-PCS; 2017-05-13)
DX: A41.9 Sepsis, unspecified organism (principal); J18.9 Pneumonia, unspecified organism; J96.21 Acute and chronic respiratory failure with hypoxia; J96.22 Acute and chronic respiratory failure with hypercapnia; I21.4 Non-ST elevation (NSTEMI) myocardial infarction; G92 Toxic encephalopathy; E87.0 Hyperosmolality and hypernatremia; J44.1 Chronic obstructive pulmonary disease with (acute) exacerbation; D68.61 Antiphospholipid syndrome; I50.40 Unspecified combined systolic (congestive) and diastolic (congestive) heart failure; E66.2 Morbid (severe) obesity with alveolar hypoventilation; I47.2 Ventricular tachycardia; N17.9 Acute kidney failure, unspecified; J44.0 Chronic obstructive pulmonary disease with (acute) lower respiratory infection; I13.0 Hypertensive heart and chronic kidney disease with heart failure and stage 1 through stage 4 chronic kidney disease, or unspecified chronic kidney disease; I27.20 Pulmonary hypertension, unspecified; N18.9 Chronic kidney disease, unspecified; F41.9 Anxiety disorder, unspecified; E78.5 Hyperlipidemia, unspecified; K21.9 Gastro-esophageal reflux disease without esophagitis; I25.10 Atherosclerotic heart disease of native coronary artery without angina pectoris; I25.5 Ischemic cardiomyopathy; E11.51 Type 2 diabetes mellitus with diabetic peripheral angiopathy without gangrene; J11.1 Influenza due to unidentified influenza virus with other respiratory manifestations; E03.9 Hypothyroidism, unspecified; E78.00 Pure hypercholesterolemia, unspecified; R65.20 Severe sepsis without septic shock; E11.22 Type 2 diabetes mellitus with diabetic chronic kidney disease; D64.9 Anemia, unspecified; R79.89 Other specified abnormal findings of blood chemistry; Z66 Do not resuscitate; D69.6 Thrombocytopenia, unspecified; R13.10 Dysphagia, unspecified; T17.990A Other foreign object in respiratory tract, part unspecified in causing asphyxiation, initial encounter; Z90.49 Acquired absence of other specified parts of digestive tract; Z95.5 Presence of coronary angioplasty implant and graft; Z88.1 Allergy status to other antibiotic agents; Z88.2 Allergy status to sulfonamides; Z87.891 Personal history of nicotine dependence; Z99.81 Dependence on supplemental oxygen; Z82.49 Family history of ischemic heart disease and other diseases of the circulatory system; Z68.37 Body mass index [BMI] 37.0-37.9, adult; Z79.01 Long term (current) use of anticoagulants; Z79.899 Other long term (current) drug therapy; Z80.8 Family history of malignant neoplasm of other organs or systems
CPT/HCPCS: 10078; 10204; 10879; 27000